=== PATIENT | female | born 1990 | race Caucasian/White ===

== ENCOUNTER 2020-12-11 03:27 | Emergency (ER) | payer OTHER, SELFPAY ==
[2020-12-11 03:59] VITALS: BP 155/83; PULSE 76; RESP 20; TEMP 37.1; O2SAT 99; BMI 40.3
[2020-12-11] MEDS: Lidocaine HCl Viscous 2 % 15 ML SOLUTION 10 ML MUCOUS MEM (04:17)
[2020-12-11] MEDS: Magnesium Hydrox/Alum Hydrox 30 ML ORAL.SUSP PO (04:17)
--- NOTE | 2020-12-11 04:35 | ED_ITS ---
HPI - General Adult General Chief complaint: Upper Respiratory Symptoms Stated complaint: Sore throat Time Seen by Provider: 12/11/20 04:06 Source: patient Mode of arrival: ambulatory History of Present Illness HPI narrative: A 30-year-old female with sore throat since yesterday without associated fevers, chills, cough and states that at approximately 2:00 a.m. this morning she began having nausea and vomiting and states that she was vomiting blood streaked. However, she states that this has resolved and she is now currently only spitting in complaining of a burning sensation at the back of the throat in addition to the sore throat that she had. Related Data Previous Rx's Medication Instructions Recorded sucralfate [Carafate] 10 ml PO BID #420 ml 12/11/20 Allergies Allergy/AdvReac Type Severity Reaction Status Date / Time sumatriptan [From IMITREX] Allergy Severe THROAT Unverified 05/04/20 17:06 SWELLING metoclopramide [From REGLAN] Allergy Intermediate HEART RACES Unverified 05/04/20 17:06 Review of Systems Review of Systems: Pertinent positives and negatives as stated in HPI and 10 point review of systems is otherwise negative. PMFSH Past Medical History Source: nursing notes reviewed Medical History Anxiety Depression Social History Social History Advance Directives: No Advance Directives Information Provided: No Physical Exam Vital Signs: Vital Signs: Last Vital Signs Temp 98.8 F 12/11/20 03:59 Pulse 76 12/11/20 03:59 Resp 20 12/11/20 03:59 BP 155/83 H 12/11/20 03:59 Pulse Ox 99 12/11/20 03:59 Body Mass Index 40.3 VITAL SIGNS: Reviewed. GENERAL: Well developed, well nourished, in no acute distress. HEAD: Normocephalic/atraumatic EYES: PERRLA, EOMI EARS: Ext canals without abnormality, TMs non-bulging and non-erythematous NOSE: Nares patent bilateral OROPHARYNX: no oral lesions noted, posterior pharynx clear but erythematous without noted tonsillar enlargement/erythema/exudates, no trismus, handling secretions well, no signs of dental infection. NECK: Supple, no adenopathy LUNGS: Normal breath sounds. No adventitious sounds or accessory muscle use. SpO2<99> CARDIOVASCULAR: Regular rate and rhythm without noted murmurs ABDOMEN: Soft, non-tender, non-distended with bowel sounds. Observed patient's vomitus/secretions an emesis bag and no evidence or demonstration of blood. NEUROLOGIC: Alert and oriented x 4. Course Course Course Narrative: 30-year-old female with history and clinical presentation suggestive of pharyngitis, acid reflux, possible COVID-19. Patient was provided with GI cocktail, Zofran. On review of all investigations patient is noted to be rapid strep negative, COVID-19 negative, and she endorses on re-evaluation that she has had some significant improvement in her esophageal burning after receiving the GI cocktail the still has some noted at the ?back of her throat?. Discussed with patient all of her results and the plan to treat her with liquid Carafate and saline gargles. Medical Decision Making Lab Data Labs: Lab Results 12/11/20 Range/Units 05:00 COVID-19 (DINESH) Negative (Negative) COVID-19 Clin Com See Note Discharge Plan Discharge Clinical Impression: Pharyngitis, Bile acid esophageal reflux Patient Disposition: Home, Self-Care Instructions: Pharyngitis (ED), Diet for Stomach Ulcers and Gastritis (ED), Gastroesophageal Reflux Disease (ED) Additional Instructions: Recommend saline gargles (per together table salt with warm water) and gargle for 5-10 minutes, a minimum of twice daily until symptom improvement. Please follow-up with the primary care provider in the next 2-3 days for re- evaluation. Return to the emergency department if you develop any acute worsening of your symptoms. Prescriptions: New sucralfate [Carafate] 100 mg/mL suspension 10 ml PO BID Qty: 420 RF: 0 Referrals: Patricia Esparza DO [Primary Care Provider] - 2 days
[2020-12-11 05:18] LABS: COVID-19 Test Negative (Negative)
== END 2020-12-11 06:12 | disposition home or self-care (01) ==
PROVIDERS: Emergency Provider Student in an Organized Health Care Education/Training Program; PCP Internal Medicine
DX: J02.9 Acute pharyngitis, unspecified (principal); K21.9 Gastro-esophageal reflux disease without esophagitis; Z20.822 Contact with and (suspected) exposure to COVID-19
CPT/HCPCS: 36415; 87071; 87147; 87635; 87880; 96360; 96361; 99283; 99284

== ENCOUNTER 2021-09-05 19:43 | Emergency (ER) | payer OTHER, SELFPAY ==
--- NOTE | 2021-09-05 | ECG_ITS ---
Test Reason : DIZZINESS Blood Pressure : / mmHG Vent. Rate : 069 BPM Atrial Rate : 069 BPM P-R Int : 150 ms QRS Dur : 100 ms QT Int : 422 ms P-R-T Axes : 020 031 024 degrees QTc Int : 452 ms Normal sinus rhythm Normal ECG When compared with ECG of 13-OCT-2019 09:40, No significant change was found Referred By: Generic ED Physician Electronically Signed By:Yves Lazar
[2021-09-05 20:44] VITALS: BP 138/78; PULSE 69; RESP 18; TEMP 35.9; O2SAT 99; BMI 42.0
[2021-09-05 23:58] VITALS: BP 125/81; PULSE 62; RESP 18; TEMP 36.7; O2SAT 99
--- NOTE | 2021-09-06 00:11 | ED.GENADULT ---
HPI - General Adult General Chief complaint: General Medical Stated complaint: shooting pain in face, dizziness Time Seen by Provider: 09/05/21 21:17 Source: patient Mode of arrival: ambulatory History of Present Illness HPI narrative: 30-year-old female with past medical history of anxiety presents with experiencing right-sided, sharp facial pain that started approximately 0600 and stated that it originated at the jaw shot upwards to the back of her right eye and her right ear. She denies any sore throat, cough, fevers, chills, blurry/double vision, pain with eye movement and states that from her forehead all the way down the right side of her face it feels ?weird?. She denies any photosensitivity, sensitivity to sound, nausea, dental pain, recent trauma, changes in hearing or problems with speech. She has had the [employer] COVID-19 vaccine. Related Data Previous Rx's Medication Instructions Recorded sucralfate 100 mg/mL oral 10 ml PO BID #420 ml 12/11/20 suspension (Carafate) Allergies Allergy/AdvReac Type Severity Reaction Status Date / Time sumatriptan [From IMITREX] Allergy Severe THROAT Verified 09/05/21 20:43 SWELLING metoclopramide [From REGLAN] Allergy Intermediate HEART RACES Verified 09/05/21 20:43 Review of Systems Review of Systems: Pertinent positives and negatives as stated in HPI 10 point review of systems is otherwise negative. PMFSH Past Medical History Source: nursing notes reviewed Medical History Anxiety Depression Social History Social History Advance Directives: No Patient : No Physical Exam Vital Signs: Vital Signs: Last Vital Signs Temp 98.0 F 09/05/21 23:58 Pulse 62 09/05/21 23:58 Resp 18 09/05/21 23:58 BP 125/81 09/05/21 23:58 Pulse Ox 99 09/05/21 23:58 BMI result Body Mass Index 42.0 VITAL SIGNS: Reviewed. GENERAL: Well developed, well nourished, in no acute distress. HEAD: Normocephalic/atraumatic EYES: PERRLA, EOMI intact without pain, no nystagmus, no periorbital edema, no conjunctival injection EARS: Ext canals without abnormality, TMs non-bulging and non-erythematous NOSE: Nares patent bilateral OROPHARYNX: no oral lesions noted, posterior pharynx clear and non-erythematous without noted tonsillar enlargement/erythema/exudates NECK: Supple, no adenopathy LUNGS: Normal breath sounds. No adventitious sounds or accessory muscle use. SpO2<99> CARDIOVASCULAR: Regular rate and rhythm without noted murmurs ABDOMEN: Soft, non-tender, non-distended with bowel sounds. MUSCULOSKELETAL: No tenderness, deformities, or effusions noted on gross inspection. EXTREMITIES: No cyanosis, clubbing or edema. SKIN: Inspection of the skin reveals no rashes NEUROLOGIC: Alert and oriented x 4. Strength and sensation to light touch were grossly intact x 4, no facial asymmetry, no erythema/induration Course Course Course Narrative: 30-year-old female with history and clinical presentation neuropathy, findings are not consistent with shingles, acute angle glaucoma, and low clinical suspicion for dental caries, no evidence to suggest AOM or pharyngitis. Will obtain basic labs as well as ESR although history and clinical present presentation less likely to be temporal arteritis. Review of all investigations without acute findings no evidence to suggest temporal arteritis. On re-evaluation patient is feeling much better after having received the Tylenol and Toradol. Discussed all results with the patient at bedside discussed the possibility that this may be TMJ or grinding of teeth. Patient discharged home in stable condition. Medical Decision Making Lab Data Result diagrams: 09/06/21 00:14 09/06/21 00:14 Labs: Lab Results 09/06/21 09/06/21 09/06/21 Range/Units 00:14 00:14 00:14 WBC 14.0 H (4.8-10.8) X10*3/uL RBC 4.36 (4.20-5.50) X10*6/uL Hgb 14.1 (12.0-16.0) g/dl Hct 41.5 (37.0-47.0) % MCV 95.2 (80.0-98.0) fL MCH 32.3 (27.0-33.0) pg MCHC 34.0 (31.0-35.0) g/dl RDW 12.8 (11.0-16.0) % Plt Count 338 (160-400) X10*3/uL MPV 10.0 (9.4-12.3) fL Immature Gran % (Auto) 0.4 (0.0-0.4) % Neut % (Auto) 48.1 (45-73) % Lymph % (Auto) 40.6 H (20-40) % Johnson % (Auto) 6.3 (2-11) % Eos % (Auto) 4.2 H (0-4) % Baso % (Auto) 0.4 (0-2) % Lymph # (Auto) 5.7 H (1.2-4.9) X10*3/uL Johnson # (Auto) 0.9 (0.1-1.2) X10*3/uL Eos # (Auto) 0.6 H (0.0-0.4) X10*3/uL Baso # (Auto) 0.1 (0.0-0.2) X10*3/uL Abs Immat Gran (auto) 0.06 H (0.00-0.03) X10*3/uL Absolute Neuts (auto) 6.7 (2.0-8.3) x10*3/uL Absolute Nucleated RBC 0.000 (0.0-0.012) X10*3/uL Nucleated RBC % (auto) 0.0 (0.0-0.2) /100WBC Smear Tech's Comments VERIFIED ESR 8 (0-20) MM/HR Sodium 140 (135-145) mmol/L Potassium 3.8 (3.3-5.1) mmol/L Chloride 107 (96-108) mmol/L Carbon Dioxide 23 (22-29) mmol/L Anion Gap 14 (12-20) BUN 12 (9-16) mg/dL Creatinine 0.75 (0.5-1.4) mg/dL Estim Creat Clear Calc 122.0 Estimated GFR > 60 Random Glucose 90 (60-115) mg/dL Calcium 9.4 (8.4-10.2) mg/dL Total Bilirubin 0.6 (0.0-1.0) mg/dL AST 22 (5-31) U/L ALT 20 (0-31) U/L Alkaline Phosphatase 104 (39-117) U/L Total Protein 7.4 (6.5-8.0) g/dL Albumin 4.2 (3.5-5.0) g/dL ECG Data Attestation: I personally reviewed and interpreted this ECG as follows: Prior ECG tracings: available for review (10/13/2019) Interpretation: Normal sinus rhythm, HR -69, no STEMI, MT/QRS/QTC are within normal limits. Discharge Plan Discharge Clinical Impression: Facial pain Patient Disposition: Home, Self-Care Instructions: Atypical Facial Pain (ED) Additional Instructions: Follow-up with your primary care provider for re-evaluation and further outpatient management in the next 1-2 days. Recommend [id number] Tylenol (1000 mg, orally, every 6 hours as needed for pain control. Do not exceed 4000 mg within 24 hours. ) And/or ibuprofen 400 mg, orally with milk or food, every 6 hours as needed for pain control. Return to the ER for worsening symptoms. Prescriptions: No Action sucralfate [Carafate] 100 mg/mL suspension 10 ml PO BID Qty: 420 RF: 0
[2021-09-06] MEDS: Acetaminophen 325 MG TABLET 975 MG PO (00:20)
[2021-09-06 00:21] LABS: Basophils Absolute Auto 0.1 X10*3/uL (0.0-0.2); Basophils Percent Auto 0.4 % (0-2); Eosinophils Absolute Auto 0.6 X10*3/uL (0.0-0.4); Eosinophils Percent Auto 4.2 % (0-4); Hematocrit 41.5 % (37.0-47.0); Hemoglobin 14.1 g/dl (12.0-16.0); Imm Gran Abs Auto 0.06 X10*3/uL (0.00-0.03); Imm Gran Pct Auto 0.4 % (0.0-0.4); Lymphocytes Absolute Auto 5.7 X10*3/uL (1.2-4.9); Lymphocytes Percent Auto 40.6 % (20-40); MANUAL DIFF FLAG SCAN; Mean Corpuscular Hemoglobin 32.3 pg (27.0-33.0); Mean Corpuscular Volume 95.2 fL (80.0-98.0); Monocytes Absolute Auto 0.9 X10*3/uL (0.1-1.2); Monocytes Percent Auto 6.3 % (2-11); Neutrophils Absolute Auto 6.7 x10*3/uL (2.0-8.3); Neutrophils Percent Auto 48.1 % (45-73); Platelet Count 338 X10*3/uL (160-400); Red Blood Count 4.36 X10*6/uL (4.20-5.50); Red Cell Distribution Width 12.8 % (11.0-16.0); SCAN SMEAR FLAG 1
[2021-09-06] MEDS: Ketorolac Tromethamine 30 MG/ML VIAL 15 MG IVPUSH (00:21)
[2021-09-06 00:49] LABS: Alanine Aminotransferase 20 U/L (0-31); Albumin Level 4.2 g/dL (3.5-5.0); Alkaline Phosphatase 104 U/L (39-117); Anion Gap 14 (12-20); Aspartate Amino Transferase 22 U/L (5-31); Bilirubin Total 0.6 mg/dL (0.0-1.0); Blood Urea Nitrogen 12 mg/dL (9-16); Calcium 9.4 mg/dL (8.4-10.2); Carbon Dioxide 23 mmol/L (22-29); Chloride 107 mmol/L (96-108); Estimated Glomerular Filt Rate > 60; Glucose Random 90 mg/dL (60-115); Potassium 3.8 mmol/L (3.3-5.1); Sodium 140 mmol/L (135-145); Total Protein 7.4 g/dL (6.5-8.0)
[2021-09-06 00:51] LABS: SLIDE REVIEW VERIFIED
[2021-09-06 01:02] LABS: Erythrocyte Sedimentation Rate 8 MM/HR (0-20)
== END 2021-09-06 02:25 | disposition home or self-care (01) ==
PROVIDERS: Emergency Provider Student in an Organized Health Care Education/Training Program
DX: R51.9 Headache, unspecified (principal); R42 Dizziness and giddiness; R07.89 Other chest pain; Z79.899 Other long term (current) drug therapy
CPT/HCPCS: 36415; 80053; 85025; 85652; 93005; 96374; 99284; J1885

== ENCOUNTER 2021-10-29 11:27 | Emergency (ER) | payer OTHER, SELFPAY ==
--- NOTE | 2021-10-29 | ECG_ITS ---
Test Reason : CP Blood Pressure : / mmHG Vent. Rate : 064 BPM Atrial Rate : 064 BPM P-R Int : 150 ms QRS Dur : 106 ms QT Int : 424 ms P-R-T Axes : 017 029 024 degrees QTc Int : 437 ms Normal sinus rhythm Normal EKG When compared with ECG of 05-SEP-2021 21:29, No significant change was found Referred By: Generic ED Physician Electronically Signed By:GURPREET GAMBOA
--- NOTE | ~2021-10-29 | CT_ITS ---
EXAMINATION: CT HEAD WITHOUT CONTRAST CLINICAL INFORMATION: Falling and difficulty communicating. COMPARISON: CT scan of the head 10/13/2019. TECHNIQUE: Contiguous axial imaging was performed from the skull base to vertex without intravenous administration of contrast. This CT examination was performed using dose optimization techniques as appropriate, variously including the following: *Automated exposure control *Adjustment of mA and/or kV according to patient size (this includes techniques or standardized protocols for targeted exams where dose is matched to indication/reason for exam; i.e. extremities or head) *Use of iterative reconstruction technique DLP: 645 mGy-cm FINDINGS: There is no acute intracranial hemorrhage or abnormal extra-axial collection. No intracranial mass effect or midline shift. Lateral and third ventricles are normal. No hydrocephalus. Ibarra-white matter differentiation is preserved and there is no evidence of acute territorial infarct. The calvarium and skull base are intact. Mastoid air cells and middle ear cavities are well aerated. No active paranasal sinus disease. CT/CT head/brain wo con IMPRESSION: Normal CT scan of the head.
[2021-10-29 11:37] VITALS: BP 136/80; PULSE 60; RESP 18; TEMP 36.5; O2SAT 98; BMI 40.2
--- NOTE | 2021-10-29 12:18 | ED.CHESTPAIN ---
HPI - Chest Pain General Chief Complaint: Chest Pain Stated Complaint: CHEST PAIN FROM [facility] Time Seen by Provider: 10/29/21 12:18 Source: patient Mode of arrival: ambulatory Limitations: no limitations History of Present Illness HPI narrative: chest pain started this morning. Patient with arm and leg pain that is chronic by history and chronicity. Patient also feels like she is falling and off balance and at times feels that she has a hard time communicating. Patient [place] [facility] [facility] [place] and was sent in. My reading of that EKG was normal complaint: chest pain Onset (ago): hour(s) Timing of current episode: episodic Pain radiation: none Severity: mild Quality: tightness Risk Factors Coronary artery disease risk factors: none Related Data Previous Rx's Medication Instructions Recorded sucralfate 100 mg/mL oral 10 ml PO BID #420 ml 12/11/20 suspension (Carafate) Allergies Allergy/AdvReac Type Severity Reaction Status Date / Time sumatriptan [From IMITREX] Allergy Severe THROAT Verified 09/05/21 20:43 SWELLING metoclopramide [From REGLAN] Allergy Intermediate HEART RACES Verified 09/05/21 20:43 Review of Systems Constitutional: Constitutional: Reports no additional constitutional complaints Eyes: Eyes: Reports no additional eye complaints ENT: Denies dizziness Cardiovascular: Cardiovascular: Reports no additional cardiovascular complaints Respiratory: Respiratory: Reports as per HPI Gastrointestinal: Gastrointestinal: Reports no additional gastrointestinal complaints Genitourinary: Genitourinary: Reports no additional female genitourinary complaints Musculoskeletal: Musculoskeletal: Reports no additional musculoskeletal complaints Integumentary/Breasts: Skin/Breast: Denies rash Neurologic: Reports system reviewed and no additional complaints, except as documented, Denies dizziness and Denies Sensory deficit (Neuro) Psychiatric: Psychiatric: Denies anxiety [facility] Past Medical History Medical History Anxiety Depression Social History Social History Advance Directives: No Advance Directives Information Provided: No Physical Exam Vital Signs: Vital Signs: Last Vital Signs Temp 97.7 F 10/29/21 11:37 Pulse 58 10/29/21 14:02 Resp 18 10/29/21 14:02 BP 146/94 H 10/29/21 14:02 Pulse Ox 99 03/14/22 14:02 Oxygen Flow Rate 2 10/29/21 11:37 BMI result Body Mass Index 40.2 Const: General: healthy appearing Nutritional Appearance: average body habitus Orientation/consciousness: oriented to person and patient oriented x3 Limitations: no limitations HENMT: Head: Yes normal to inspection Ears: external ears normal General nose exam: Normal external nose present Mouth: Normal oral and palatal mucosa present and oropharynx normal Throat: Yes posterior oropharynx normal Eyes: General: appearance normal, both eyes and all related structures Neck: Other: supple Neck: Yes normal visual inspection Chest: Chest palpation & inspection: normal inspection of the chest Resp: Auscultation: clear to auscultation bilaterally Cardio: Jugular venous distension: no JVD Rate: regular rate Rhythm: regular rhythm Heart sounds: S1 normal heart sound present and S2 normal heart sound present GI: Inspection: Yes normal to inspection Palpation (GI): Soft to palpation, nontender and No hepatosplenomegaly present Auscultation: normal bowel sounds : General: Yes no CVA tenderness Back/Spine/Pelvis: Back: no CVA tenderness Skin: General skin exam: no rashes or lesions noted Neuro: General: oriented to person and patient oriented x3 Cranial nerves: Yes CN's II-XII intact bilaterally Motor exam (neuro): 5/5 motor strength present throughout Sensory Exam: No Sensory deficit (Neuro) Extrem: General: Yes normal to inspection Psych: Other: Anxious affect Course Reevaluation(s) Reevaluation #1: Patient with NIH stroke scale of 0. she has no ataxia or past pointing. Time: 12:30 Reevaluation #2: Patient with a host of complaints, including headache, falling, arm and leg pain for weeks, and chest pain today. Work up is negative and normal EKG. I will have patient follow up with her doctor Time: 15:56 MDM - Chest Pain Lab Data Result diagrams: 10/29/21 12:51 10/29/21 12:51 Labs: Lab Results 10/29/21 10/29/21 10/29/21 Range/Units 12:51 12:51 12:51 WBC 12.9 H (4.8-10.8) X10*3/uL RBC 4.37 (4.20-5.50) X10*6/uL Hgb 13.8 (12.0-16.0) g/dl Hct 42.2 (37.0-47.0) % MCV 96.6 (80.0-98.0) fL MCH 31.6 (27.0-33.0) pg MCHC 32.7 (31.0-35.0) g/dl RDW 12.8 (11.0-16.0) % Plt Count 394 (160-400) X10*3/uL MPV 10.0 (9.4-12.3) fL Immature Gran % (Auto) 0.5 H (0.0-0.4) % Neut % (Auto) 57.0 (45-73) % Lymph % (Auto) 34.0 (20-40) % Billings % (Auto) 4.9 (2-11) % Eos % (Auto) 3.3 (0-4) % Baso % (Auto) 0.3 (0-2) % Lymph # (Auto) 4.4 (1.2-4.9) X10*3/uL Billings # (Auto) 0.6 (0.1-1.2) X10*3/uL Eos # (Auto) 0.4 (0.0-0.4) X10*3/uL Baso # (Auto) 0.0 (0.0-0.2) X10*3/uL Abs Immat Gran (auto) 0.06 H (0.00-0.03) X10*3/uL Absolute Neuts (auto) 7.4 (2.0-8.3) x10*3/uL Absolute Nucleated RBC 0.000 (0.0-0.012) X10*3/uL Nucleated RBC % (auto) 0.0 (0.0-0.2) /100WBC ESR (0-20) MM/HR Sodium 142 (135-145) mmol/L Potassium 4.2 (3.3-5.1) mmol/L Chloride 107 (96-108) mmol/L Carbon Dioxide 27 (22-29) mmol/L Anion Gap 12 (12-20) BUN 11 (9-16) mg/dL Creatinine 0.80 (0.5-1.4) mg/dL Estim Creat Clear Calc 110.4 Estimated GFR > 60 Random Glucose 85 (60-115) mg/dL Calcium 9.6 (8.4-10.2) mg/dL Troponin I High Sens < 3.5 (<3.5-17.0) ng/L 10/29/21 Range/Units 12:51 WBC (4.8-10.8) X10*3/uL RBC (4.20-5.50) X10*6/uL Hgb (12.0-16.0) g/dl Hct (37.0-47.0) % MCV (80.0-98.0) fL MCH (27.0-33.0) pg MCHC (31.0-35.0) g/dl RDW (11.0-16.0) % Plt Count (160-400) X10*3/uL MPV (9.4-12.3) fL Immature Gran % (Auto) (0.0-0.4) % Neut % (Auto) (45-73) % Lymph % (Auto) (20-40) % Billings % (Auto) (2-11) % Eos % (Auto) (0-4) % Baso % (Auto) (0-2) % Lymph # (Auto) (1.2-4.9) X10*3/uL Billings # (Auto) (0.1-1.2) X10*3/uL Eos # (Auto) (0.0-0.4) X10*3/uL Baso # (Auto) (0.0-0.2) X10*3/uL Abs Immat Gran (auto) (0.00-0.03) X10*3/uL Absolute Neuts (auto) (2.0-8.3) x10*3/uL Absolute Nucleated RBC (0.0-0.012) X10*3/uL Nucleated RBC % (auto) (0.0-0.2) /100WBC ESR 7 (0-20) MM/HR Sodium (135-145) mmol/L Potassium (3.3-5.1) mmol/L Chloride (96-108) mmol/L Carbon Dioxide (22-29) mmol/L Anion Gap (12-20) BUN (9-16) mg/dL Creatinine (0.5-1.4) mg/dL Estim Creat Clear Calc Estimated GFR Random Glucose (60-115) mg/dL Calcium (8.4-10.2) mg/dL Troponin I High Sens (<3.5-17.0) ng/L Imaging Data CT scan - head: Radiologist's impression: IMPRESSION: Normal CT scan of the head. Discharge Plan Discharge Clinical Impression: Atypical chest pain, Myalgia Patient Disposition: Home, Self-Care Instructions: Noncardiac Chest Pain (ED), Musculoskeletal Pain (ED) Prescriptions: No Action sucralfate [Carafate] 100 mg/mL suspension 10 ml PO BID Qty: 420 0RF Referrals: Physician,Unknown J [Primary Care Provider] - 10 days
[2021-10-29 12:55] LABS: MANUAL DIFF FLAG NO
[2021-10-29 13:02] LABS: Basophils Percent Auto 0.3 % (0-2); Eosinophils Absolute Auto 0.4 X10*3/uL (0.0-0.4); Eosinophils Percent Auto 3.3 % (0-4); Hematocrit 42.2 % (37.0-47.0); Hemoglobin 13.8 g/dl (12.0-16.0); Imm Gran Abs Auto 0.06 X10*3/uL (0.00-0.03); Imm Gran Pct Auto 0.5 % (0.0-0.4); Lymphocytes Absolute Auto 4.4 X10*3/uL (1.2-4.9); Mean Corpuscular HGB Conc 32.7 g/dl (31.0-35.0); Mean Corpuscular Hemoglobin 31.6 pg (27.0-33.0); Mean Corpuscular Volume 96.6 fL (80.0-98.0); Monocytes Absolute Auto 0.6 X10*3/uL (0.1-1.2); Monocytes Percent Auto 4.9 % (2-11); Neutrophils Absolute Auto 7.4 x10*3/uL (2.0-8.3); Platelet Count 394 X10*3/uL (160-400); Red Blood Count 4.37 X10*6/uL (4.20-5.50); Red Cell Distribution Width 12.8 % (11.0-16.0); White Blood Count 12.9 X10*3/uL (4.8-10.8)
[2021-10-29 13:13] LABS: Anion Gap 12 (12-20); Blood Urea Nitrogen 11 mg/dL (9-16); Calcium 9.6 mg/dL (8.4-10.2); Carbon Dioxide 27 mmol/L (22-29); Chloride 107 mmol/L (96-108); Creatinine Clr Calc Pharmacy 110.4; Estimated Glomerular Filt Rate > 60; Glucose Random 85 mg/dL (60-115); Potassium 4.2 mmol/L (3.3-5.1); Sodium 142 mmol/L (135-145)
[2021-10-29 13:21] LABS: Troponin-I High Sensitivity < 3.5 ng/L (<3.5-17.0)
[2021-10-29 13:44] LABS: Erythrocyte Sedimentation Rate 7 MM/HR (0-20)
[2021-10-29 14:02] VITALS: BP 146/94; PULSE 58; RESP 18; O2SAT 99
== END 2021-10-29 16:10 | disposition home or self-care (01) ==
PROVIDERS: Emergency Provider Emergency Medicine
DX: R07.89 Other chest pain (principal); M79.10 Myalgia, unspecified site
CPT/HCPCS: 36415; 70450; 80048; 84484; 85025; 85652; 93005; 99284; 99285

== ENCOUNTER 2022-01-11 10:09 | Emergency (ER) | payer OTHER, SELFPAY ==
[2022-01-11] VITALS (7 sets, daily range): BP systolic 116–160; BP diastolic 72–93; PULSE 60–97; RESP 15–20; TEMP 36.2–37.1; O2SAT 95–99; BMI 40.2
--- NOTE | ~2022-01-11 | XR_ITS ---
EXAMINATION: XR CHEST CLINICAL INFORMATION: Chest pain COMPARISON: Previous chest CT from 2016 and chest x-ray from 2016 TECHNIQUE: Frontal view of the chest was obtained. FINDINGS: No significant abnormality is noted involving the heart, lungs, mediastinum, bony thorax or soft tissues. XR/XR chest 1V IMPRESSION: Unremarkable examination.
--- NOTE | ~2022-01-11 | MR_ITS ---
EXAMINATION: MR BRAIN WITHOUT CONTRAST MR CERVICAL SPINE WITHOUT CONTRAST CLINICAL INFORMATION: Headache. Dizziness. Right face and right arm numbness. COMPARISON: CT head and cervical spine from 07/26/2015. TECHNIQUE: MRI of the brain and cervical spine was obtained using routine sequences without contrast. FINDINGS: Brain: No focal restricted diffusion is demonstrated to suggest acute or subacute cerebral ischemia. No evidence of acute or chronic hemorrhagic products on heme-sensitive imaging. Normal parenchymal signal characteristics. The ventricles are normal in morphology and size. No abnormal mass effect. No midline shift. Expansion of the sella turcica with flattening of the pituitary gland. No abnormalities of the posterior fossa with normal appearance of the brainstem and cerebellum. Normal arterial and venous vascular flow voids are present. Normal, homogeneous marrow signal. Mild mucosal thickening of the paranasal sinuses. Mild leftward nasal septal deviation. No signal abnormalities within the mastoids. Cervical Spine: Normal anatomic alignment. 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 Otherwise, normal homogeneous marrow signal throughout. No suspicious marrow edema. The vertebral body heights are maintained. Mild degenerative disc disease at C4-C5 and C5-C6 with partial loss of disc height and desiccation. The remaining intervertebral discs are of normal height and signal. The spinal cord is normal in appearance. Moderate enlargement of the bilateral palatine tonsils without demonstrated focal lesion/collection. Nonspecific mildly prominent upper cervical chain lymph nodes, measuring up to 1.7 cm in right level IIa and 1.6 cm in left level IIb. Otherwise, limited evaluation of the soft tissues of the neck without demonstrated abnormalities. The flow voids of the major cervical vessels are maintained. Normal appearance of the cervicomedullary junction. SPINAL LEVELS: C2-C3: Normal annular contour. There is no uncovertebral joint arthropathy. There is no facet joint arthropathy. There is no neural foraminal stenosis. There is no spinal canal stenosis. C3-C4: Normal annular contour. There is no uncovertebral joint arthropathy. There is no facet joint arthropathy. There is no neural foraminal stenosis. There is no spinal canal stenosis. C4-C5: Minimal disc-osteophyte complex. There is no uncovertebral joint arthropathy. There is no facet joint arthropathy. There is no neural foraminal stenosis. There is no spinal canal stenosis. C5-C6: Mild disc-osteophyte complex. There is mild left and no right uncovertebral joint arthropathy. There is mild bilateral facet joint arthropathy. There is no neural foraminal stenosis. There is no spinal canal stenosis. C6-C7: Normal annular contour. There is mild bilateral uncovertebral joint arthropathy. There is mild bilateral facet joint arthropathy. There is no neural foraminal stenosis. There is no spinal canal stenosis. C7-T1: Normal annular contour. There is no uncovertebral joint arthropathy. There is no facet joint arthropathy. There is no neural foraminal stenosis. There is no spinal canal stenosis. MR/MR cervical spine wo con IMPRESSION: 1. No acute intracranial abnormalities. No additional intracranial MRI abnormalities to explain the patient's symptoms. 2. 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 No spinal canal stenosis or nerve root compression. No demonstrated spinal cord signal abnormalities. 3. Moderate enlargement of the bilateral palatine tonsils without demonstrated focal lesion/collection. Nonspecific mildly enlarged upper cervical chain lymph nodes, likely reactive in nature.
--- NOTE | 2022-01-11 10:28 | ECG_ITS ---
Test Reason : cp Blood Pressure : / mmHG Vent. Rate : 082 BPM Atrial Rate : 082 BPM P-R Int : 134 ms QRS Dur : 102 ms QT Int : 390 ms P-R-T Axes : 034 028 034 degrees QTc Int : 455 ms Normal sinus rhythm Normal ECG When compared with ECG of 29-OCT-2021 11:28, No significant change was found Referred By: Generic ED Physician Electronically Signed By:Yves Lazar
[2022-01-11 10:45] LABS: Basophils Absolute Auto 0.1 X10*3/uL (0.0-0.2); Basophils Percent Auto 0.3 % (0-2); Eosinophils Absolute Auto 0.5 X10*3/uL (0.0-0.4); Hematocrit 41.3 % (37.0-47.0); Hemoglobin 14.2 g/dl (12.0-16.0); Imm Gran Abs Auto 0.08 X10*3/uL (0.00-0.03); Imm Gran Pct Auto 0.5 % (0.0-0.4); Lymphocytes Absolute Auto 4.9 X10*3/uL (1.2-4.9); Lymphocytes Percent Auto 31.1 % (20-40); MANUAL DIFF FLAG SCAN; Mean Corpuscular HGB Conc 34.4 g/dl (31.0-35.0); Mean Corpuscular Hemoglobin 32.1 pg (27.0-33.0); Mean Corpuscular Volume 93.4 fL (80.0-98.0); Mean Platelet Volume 10.5 fL (9.4-12.3); Monocytes Absolute Auto 0.8 X10*3/uL (0.1-1.2); Monocytes Percent Auto 5.1 % (2-11); Neutrophils Absolute Auto 9.4 x10*3/uL (2.0-8.3); Platelet Count 366 X10*3/uL (160-400); Red Blood Count 4.42 X10*6/uL (4.20-5.50); Red Cell Distribution Width 12.7 % (11.0-16.0); SCAN SMEAR FLAG 1; White Blood Count 15.7 X10*3/uL (4.8-10.8)
[2022-01-11 11:01] LABS: Anion Gap 11 (12-20); Blood Urea Nitrogen 9 mg/dL (9-16); Calcium 9.6 mg/dL (8.4-10.2); Carbon Dioxide 24 mmol/L (22-29); Chloride 107 mmol/L (96-108); Creatinine Clr Calc Pharmacy 117.8; Estimated Glomerular Filt Rate > 60; Glucose Random 93 mg/dL (60-115); Potassium 4.1 mmol/L (3.3-5.1); Sodium 138 mmol/L (135-145)
[2022-01-11 11:04] LABS: SLIDE REVIEW VERIFIED; Troponin-I High Sensitivity < 3.5 ng/L (<3.5-17.0)
[2022-01-11 11:52] LABS: Appearance Urine HAZY; Color Urine YELLOW; Glucose Urine UA NEG (NEG); Leukocyte Esterase Urine NEG (NEG); Nitrite Urine NEG (NEG); UACC Culture Trigger NO; Urine Blood TRACE (NEG); Urine Ketones 5 MG/DL (NEG); Urine Protein NEG (NEG-TRACE)
[2022-01-11 11:56] LABS: UPreg QC Valid YES; Urine Pregnancy NEGATIVE (NEGATIVE)
[2022-01-11 12:03] LABS: WBC Urine 0-2 /HPF (0-4)
[2022-01-11 12:04] LABS: Bacteria Urine TRACE /LPF; Squamous Epithelial Cell Urine 1+ /LPF
[2022-01-11 12:05] LABS: Amorphous Sediment Urine TRACE /LPF
--- NOTE | 2022-01-11 17:27 | ED.GENADULT ---
HPI - General Adult General Chief complaint: General Medical Stated complaint: dizziness/back pain Time Seen by Provider: 01/11/22 17:27 Source: patient Mode of arrival: ambulatory Limitations: no limitations History of Present Illness HPI narrative: 31-year-old female who presents emergency department for evaluation of headache, dizziness, right-sided numbness. The patient states she has been experiencing dizziness for approximately 1 month. She describes the dizziness as a room spinning sensation she feels like her body is moving. The dizziness is worse with position change in with lying down flat especially at night. She states that the symptoms began gradually 1 month prior but have gotten progressively worse. She also has the sensation that her eyes were moving when she gets dizzy. She does have a history of migraine headaches but she states that she has had a headache which is been constant for approximately 1 month. She points to the frontal area of her head and the top her head when asked to localize the pain. The pain is a throbbing pain she feels as if someone is hit her in the head. The pain is 8/10 at its worst. She states she does get some relief with Excedrin migraine. The patient states she has been experiencing intermittent right-sided facial numbness since August of 2021. She was seen here in the emergency department and had a negative CT scan of the brain at that time. She states that she has been experiencing numbness on the right side of her body since 2018 and she currently feels like her right arm and right side of her body is numb. She also is experiencing right arm weakness which she states has gotten worse. She has seen her PCP he has been referred to a neurologist but that appointment is not until next month. She states that last night her headache became worse and she developed pain that went from her head down to her lower back. She states that this is a new sensation for her. She denies weakness of her lower extremities, loss of bowel or bladder control. Related Data Previous Rx's Medication Instructions Recorded sucralfate 100 mg/mL oral 10 ml PO BID #420 ml 12/11/20 suspension (Carafate) hydrochlorothiazide 25 mg tablet 25 mg PO DAILY 30 Days #30 tab 01/11/22 Allergies Allergy/AdvReac Type Severity Reaction Status Date / Time sumatriptan [From IMITREX] Allergy Severe THROAT Verified 09/05/21 20:43 SWELLING metoclopramide [From REGLAN] Allergy Intermediate HEART RACES Verified 09/05/21 20:43 Review of Systems Review of Systems: Yes all other systems are reviewed and are negative [facility] Past Medical History [facility] Narrative: Past medical history: GERD, anxiety, migraines. Past surgical history: Right wrist surgery after fracture. Social history: She smokes 5 cigarettes per day times 16 years. She occasionally drinks alcohol, she denies drug use. Medical History Anxiety Depression Social History Social History Advance Directives: No Advance Directives Information Provided: No Physical Exam ED Vital Signs: Vital Signs - 24 hr 01/11/22 10:24 01/11/22 18:24 01/11/22 20:11 Temperature 97.1 F 98.2 F 98.3 F Pulse Rate 81 74 60 Respiratory Rate 20 16 15 Blood Pressure 136/84 121/76 119/72 Pulse Oximetry 95 99 01/11/22 20:23 01/11/22 20:33 01/11/22 22:50 Temperature 98.0 F Pulse Rate 97 63 72 Respiratory Rate 20 18 18 Blood Pressure 160/87 H 123/76 159/93 H Pulse Oximetry 95 98 BMI result Body Mass Index 40.2 Const General: cooperative and no acute distress Orientation/consciousness: oriented to person and oriented to place Limitations: no limitations [facility] Head: Yes normal to inspection, Yes normocephalic and Yes atraumatic Ears: external ears normal General nose exam: Normal external nose present Face and sinus: Yes normal facial exam Mouth: Normal oral and palatal mucosa present Throat: Yes posterior oropharynx normal Eyes Visual Javier: normal visual javier by confrontation Alignment and Position: alignment normal Periorbital: periorbital findings normal Eyelids: Yes eyelids normal Conjunctivae: conjunctivae normal Sclerae: sclerae normal Corneas: corneas normal Pupils: Equal, round and reactive pupils present EOM: EOMs intact bilaterally and Nystagmus present (Lateral) Neck Neck: Yes normal visual inspection, Yes no lymphadenopathy, Yes trachea midline and Yes supple Chest Chest palpation & inspection: normal inspection of the chest and normal palpation of entire chest wall Resp Effort & Inspection: normal respiratory effort and able to speak in complete sentences Auscultation: clear to auscultation bilaterally Cardio Rate: regular rate Rhythm: regular rhythm Heart sounds: S1 normal heart sound present, S2 normal heart sound present and no murmurs GI Inspection: Yes normal to inspection Palpation (GI): Soft to palpation, nontender and no guarding Auscultation: normal bowel sounds General: Yes no CVA tenderness Back/Spine/Pelvis Back: no CVA tenderness Skin General skin exam: no rashes or lesions noted Neuro General: oriented to person and oriented to place Cranial nerves: Yes CN's II-XII intact bilaterally, Yes Equal, round and reactive pupils present and Yes Nystagmus present (Lateral) Cognition (Neuro): normal cognition Motor exam (neuro): 5/5 motor strength present throughout Coordination: [id number] test normal and [id number] test normal Extrem General: Yes normal to inspection Psych Appearance: grossly normal Speech and movement: Normal speech and movement present Affect: normal affect Attitude: cooperative Thought process: Normal thought process present Thought content: Normal thought content present Course Course Course Narrative: 31-year-old female who presents emergency department for evaluation of multiple complaints including room spinning/body moving dizziness which is worse with position change x1 month, headache x1 week, intermittent right sided facial numbness and right sided body numbness. Patient does have a history migraine headaches. Patient's vital signs were unremarkable. Examination did reveal lateral nystagmus, her neurologic exam was otherwise unremarkable. Differential includes was not limited to migraine headache, positional vertigo, cerebellar stroke/mass, multiple sclerosis. Patient had a CBC and CMP which revealed an elevated white blood cell count which is chronic and the patient is aware of this. BMP which was normal. High sensitivity troponin I which was below detectable limits. Chest x-ray was normal. EKG was unremarkable. Given the patient's symptoms in the differential, I did order an MRI of the brain and cervical spine. Patient's headache was treated with Tylenol 975 mg orally and aspirin 324 mg orally. 2332: The patient's MRI of the brain did not reveal any cerebellar lesions, MRI of the neck also did not reveal a clear etiology for the patient's symptoms. I did discuss this with the patient. Patient does have signs and symptoms of positional vertigo and I will treat her with hydrochlorothiazide 25 mg once a day for 1 month. I did discuss this treatment with her. The patient was given printed and verbal instructions discharged home. Medical Decision Making Lab Data Lab results reviewed: Yes I reviewed the patient's lab results. Result diagrams: 01/11/22 10:35 01/11/22 10:35 Labs: Lab Results 01/11/22 01/11/22 01/11/22 Range/Units 10:35 10:35 10:35 WBC 15.7 H (4.8-10.8) X10*3/uL RBC 4.42 (4.20-5.50) X10*6/uL Hgb 14.2 (12.0-16.0) g/dl Hct 41.3 (37.0-47.0) % MCV 93.4 (80.0-98.0) fL MCH 32.1 (27.0-33.0) pg MCHC 34.4 (31.0-35.0) g/dl RDW 12.7 (11.0-16.0) % Plt Count 366 (160-400) X10*3/uL MPV 10.5 (9.4-12.3) fL Immature Gran % (Auto) 0.5 H (0.0-0.4) % Neut % (Auto) 60.0 (45-73) % Lymph % (Auto) 31.1 (20-40) % [place] % (Auto) 5.1 (2-11) % Eos % (Auto) 3.0 (0-4) % Baso % (Auto) 0.3 (0-2) % Lymph # (Auto) 4.9 (1.2-4.9) X10*3/uL [place] # (Auto) 0.8 (0.1-1.2) X10*3/uL Eos # (Auto) 0.5 H (0.0-0.4) X10*3/uL Baso # (Auto) 0.1 (0.0-0.2) X10*3/uL Abs Immat Gran (auto) 0.08 H (0.00-0.03) X10*3/uL Absolute Neuts (auto) 9.4 H (2.0-8.3) x10*3/uL Absolute Nucleated RBC 0.000 (0.0-0.012) X10*3/uL Nucleated RBC % (auto) 0.0 (0.0-0.2) /100WBC Smear Tech's Comments VERIFIED Sodium 138 (135-145) mmol/L Potassium 4.1 (3.3-5.1) mmol/L Chloride 107 (96-108) mmol/L Carbon Dioxide 24 (22-29) mmol/L Anion Gap 11 L (12-20) BUN 9 (9-16) mg/dL Creatinine 0.75 (0.5-1.4) mg/dL Estim Creat Clear Calc 117.8 Estimated GFR > 60 Random Glucose 93 (60-115) mg/dL Calcium 9.6 (8.4-10.2) mg/dL Troponin I High Sens < 3.5 (<3.5-17.0) ng/L Urine Color Urine Appearance Urine pH (5.0-8.0) Ur Specific [place] (1.005-1.025) Urine Protein (NEG-TRACE) MG/DL Urine Glucose (UA) (NEG) MG/DL Urine Ketones (NEG) MG/DL Urine Blood (NEG) Urine Nitrite (NEG) Ur Leukocyte Esterase (NEG) Urine RBC (0) /HPF Urine WBC (0-4) /HPF Ur Squamous Epith Cells /LPF Amorphous Sediment /LPF Urine Bacteria /LPF Urine Test (NEGATIVE) 01/11/22 01/11/22 Range/Units 11:42 11:42 WBC (4.8-10.8) X10*3/uL RBC (4.20-5.50) X10*6/uL Hgb (12.0-16.0) g/dl Hct (37.0-47.0) % MCV (80.0-98.0) fL MCH (27.0-33.0) pg MCHC (31.0-35.0) g/dl RDW (11.0-16.0) % Plt Count (160-400) X10*3/uL MPV (9.4-12.3) fL Immature Gran % (Auto) (0.0-0.4) % Neut % (Auto) (45-73) % Lymph % (Auto) (20-40) % [place] % (Auto) (2-11) % Eos % (Auto) (0-4) % Baso % (Auto) (0-2) % Lymph # (Auto) (1.2-4.9) X10*3/uL [place] # (Auto) (0.1-1.2) X10*3/uL Eos # (Auto) (0.0-0.4) X10*3/uL Baso # (Auto) (0.0-0.2) X10*3/uL Abs Immat Gran (auto) (0.00-0.03) X10*3/uL Absolute Neuts (auto) (2.0-8.3) x10*3/uL Absolute Nucleated RBC (0.0-0.012) X10*3/uL Nucleated RBC % (auto) (0.0-0.2) /100WBC Smear Tech's Comments Sodium (135-145) mmol/L Potassium (3.3-5.1) mmol/L Chloride (96-108) mmol/L Carbon Dioxide (22-29) mmol/L Anion Gap (12-20) BUN (9-16) mg/dL Creatinine (0.5-1.4) mg/dL Estim Creat Clear Calc Estimated GFR Random Glucose (60-115) mg/dL Calcium (8.4-10.2) mg/dL Troponin I High Sens (<3.5-17.0) ng/L Urine Color YELLOW Urine Appearance HAZY Urine pH 6.0 (5.0-8.0) Ur Specific [place] 1.020 (1.005-1.025) Urine Protein NEG (NEG-TRACE) MG/DL Urine Glucose (UA) NEG (NEG) MG/DL Urine Ketones 5 (NEG) MG/DL Urine Blood TRACE (NEG) Urine Nitrite NEG (NEG) Ur Leukocyte Esterase NEG (NEG) Urine RBC 1-4 (0) /HPF Urine WBC 0-2 (0-4) /HPF Ur Squamous Epith Cells 1+ /LPF Amorphous Sediment TRACE /LPF Urine Bacteria TRACE /LPF Urine Test NEGATIVE (NEGATIVE) ECG Data Attestation: I personally reviewed and interpreted this ECG as follows: Interpretation: 1024: Normal sinus rhythm with a rate of 82, normal DE interval, QRS duration and QTC interval, Q-wave lead 3, inverted T-wave lead 3, no ST segment elevation, no ST segment depression, no PACs, no PVCs, no other T-wave abnormalities. Compared to EKG dated 10/29/2021, Q-wave in inverted T-wave in lead 3 were present, no other significant change was seen by by me. Discharge Plan Discharge Clinical Impression: Paresthesia and pain of right extremity Benign paroxysmal positional vertigo Qualifiers: Laterality: unspecified laterality Qualified Code(s): H81.10 - Benign paroxysmal vertigo, unspecified ear Patient Disposition: Home, Self-Care Instructions: Benign Paroxysmal Positional Vertigo (ED) Additional Instructions: Your laboratory evaluation was unremarkable. The MRI of your brain did not reveal a clear cause for the dizziness. The MRI of your neck did not reveal a clear cause for your right arm numbness and pain. Your dizziness is consistent with positional vertigo (dizziness that occurs with position change). Positional vertigo is caused by the balance mechanism in the bony part of the ear (inner ear) Take hydrochlorothiazide 25 mg pills, 1 pill once a day for 1 month in this should improve your vertigo. Continue taking your other medications as prescribed. Make sure you keep your follow-up appointment with the neurologist. Follow-up with your doctor in 2 days. Please return to the emergency department if your symptoms get worse or if you develop any symptoms that are concerning to you. Prescriptions: New hydrochlorothiazide 25 mg tablet 25 mg PO DAILY 30 Days Qty: 30 0RF No Action sucralfate [Carafate] 100 mg/mL suspension 10 ml PO BID Qty: 420 0RF
[2022-01-11] MEDS: Acetaminophen 325 MG TABLET 975 MG PO (18:22)
[2022-01-11] MEDS: Aspirin 81 MG TAB.CHEW 324 MG PO (18:22)
[2022-01-11] MEDS: LORazepam 1 MG TABLET 2 MG PO (22:51)
== END 2022-01-11 23:53 | disposition home or self-care (01) ==
PROVIDERS: Emergency Provider Emergency Medicine Emergency Medical Services; PCP Internal Medicine
DX: H81.10 Benign paroxysmal vertigo, unspecified ear (principal); R20.2 Paresthesia of skin; R51.9 Headache, unspecified; R53.1 Weakness; F17.200 Nicotine dependence, unspecified, uncomplicated
CPT/HCPCS: 36415; 70551; 71045; 72141; 80048; 81001; 81025; 84484; 85025; 93005; 99284; 99285

== ENCOUNTER 2022-03-20 05:51 | Emergency (ER) | payer OTHER, SELFPAY ==
[2022-03-20 05:55] VITALS: BP 150/77; PULSE 60; RESP 16; TEMP 37.1; O2SAT 96; BMI 36.6
[2022-03-20 07:21] VITALS: BP 129/57; PULSE 58; RESP 14; TEMP 36.7; O2SAT 99
--- NOTE | 2022-03-20 08:18 | ED_ITS ---
HPI - Animal Bite General Chief Complaint: Wound/Laceration Stated Complaint: Cat Bite Time Seen by Provider: 03/20/22 08:01 Source: patient Mode of arrival: ambulatory Limitations: no limitations History of Present Illness HPI narrative: 31-year-old female presents to the ER for evaluation of cat bites and scratches to the top of her left foot that occurred almost 24 hours ago. She states she is fostering a CT that was having a fight with her established CT and she put her foot in to try to break them up when the foster cap bid her foot. She immediately cleaned the area with peroxide and soap and water. She had pain to the area and progressive swelling to the top of her left foot. She denies any fever or chills. Noted purulence drainage. She reports this morning she woke up with some numbness to her toes and ongoing pain. The pain is making it hard for her to walk. She is up-to-date on her tetanus shot. The CT is not up-to-date on all of his shots however he has been in her care for couple of months and she has prior bites from him. MD complaint: animal bite Onset (ago): day(s) (1) Animal: cat Description of animal: household pet Mechanism: bite and scratch Location - Extremities: left: foot Pain description: sharp, burning and constant Severity scale (1-10): 7 Context: animals fighting Associated symptoms: numbness Treatments prior to arrival: irrigation and antibiotic ointment Related Data Patient tetanus UTD: Yes Previous Rx's Medication Instructions Recorded sucralfate 100 mg/mL oral 10 ml PO BID #420 mL 12/11/20 suspension (Carafate) hydrochlorothiazide 25 mg tablet 25 mg PO DAILY 30 days #30 tabs 01/11/22 amoxicillin 875 mg-potassium 1 tab PO Q12H #28 tabs 03/20/22 clavulanate 125 mg tablet Allergies Allergy/AdvReac Type Severity Reaction Status Date / Time sumatriptan [From IMITREX] Allergy Severe THROAT Verified 09/05/21 20:43 SWELLING metoclopramide [From REGLAN] Allergy Intermediate HEART RACES Verified 09/05/21 20:43 Review of Systems Review of Systems: Constitutional: No Fever, No Chills Cardiovascular: No Chest Pain, No SOB Respiratory: No Cough, No Sputum Gastrointestinal: No Nausea, No Vomiting, No Diarrhea, No abdominal Pain Musculoskeletal: +joint pain, + Myalgias Skin: + Skin Lesions, No rash Neuro: No Weakness, + Numbness, No Dizziness, No Headache Psych: + Anxiety/Panic, No Depression Heme/Lymph: No Bruising, No Lymphadenopathy PMFSH Past Medical History Medical History Anxiety Depression Social History Social History Advance Directives: No Physical Exam ED Vital Signs: Vital Signs - 24 hr 03/20/22 05:55 03/20/22 07:21 Temperature 98.8 F 98.0 F Pulse Rate 60 58 Respiratory Rate 16 14 Blood Pressure 150/77 H 129/57 L Pulse Oximetry 96 99 Oxygen Delivery Method Room Air Room Air BMI result Body Mass Index 36.6 Appearance: Alert. Oriented X3. No acute distress. HEENT: normal inspection CVS: Normal heart rate and rhythm. Pulses normal. Respiratory: No respiratory distress. Skin: Skin warm and dry. Normal skin color. Normal skin turgor. No rashes. Extremities: Top of the left foot with superficial scratches and 2 puncture wounds with surrounding erythema and warmth extending to the toes and the distal ankle. Normal range of motion of the ankle, normal range of motion of all toes. Neuro: Oriented X 3. No motor deficit. No subjective numbness to the base of the great toe, 2nd toe and 3rd toe on the left foot. Normal range of motion. Course Course Course Narrative: 31-year-old female presents to the ER for evaluation of cat bites and scratches to the top of her left foot that occurred yesterday. Exam is consistent with cellulitis. No purulence drainage, no palpable abscess. She is not septic. Will start oral Augmentin now and have her closely follow with her primary care doctor. We discussed warning signs and symptoms that prompt urgent re- evaluation. She expressed understanding and is stable for discharge home. Discharge Plan Discharge Clinical Impression: Cat bite of foot Patient Disposition: Home, Self-Care Instructions: Animal Bite (ED) Additional Instructions: Take the prescribed antibiotics as directed. Complete the entire course. Elevate her foot when possible. Use warm compresses to the area to help increase blood flow and help fight infection. If after 48 full hours of antibiotics he noticed things are getting worse call your doctor or come back to the emergency room for further evaluation. Prescriptions: New amoxicillin-pot clavulanate 875-125 mg tablet 1 tab PO Q12H Qty: 28 0RF No Action sucralfate [Carafate] 100 mg/mL suspension 10 ml PO BID Qty: 420 0RF hydrochlorothiazide 25 mg tablet 25 mg PO DAILY 30 Days Qty: 30 0RF Interventions: ED Discharge Assessment Last Done: 03/20/22 08:35 Discharge Date/Time: 03/20/22 08:35
== END 2022-03-20 08:35 | disposition home or self-care (01) ==
PROVIDERS: Emergency Provider Emergency Medicine Emergency Medical Services; PCP Internal Medicine
DX: S90.872A Other superficial bite of left foot, initial encounter (principal); W55.01XA Bitten by cat, initial encounter; Y93.9 Activity, unspecified; Y92.9 Unspecified place or not applicable; Y99.9 Unspecified external cause status; Z79.899 Other long term (current) drug therapy
CPT/HCPCS: 99283

== ENCOUNTER 2022-03-21 22:23 | Emergency (ER) | payer OTHER, SELFPAY ==
--- NOTE | ~2022-03-21 | XR_ITS ---
EXAMINATION: XR FOOT, LEFT CLINICAL INFORMATION: Cat bite COMPARISON: None TECHNIQUE: AP, lateral, and oblique views of the left foot. FINDINGS: No fracture. Alignment is anatomic. Joint spaces are maintained. Soft tissue swelling dorsal to the tarsals. No obvious soft tissue gas XR/XR foot LT min 3V IMPRESSION: No acute osseous abnormalities. No foreign bodies. Soft tissue swelling dorsal to the metatarsals.
[2022-03-21 23:56] VITALS: BP 124/55; PULSE 73; RESP 16; TEMP 37.3; O2SAT 97; BMI 38.2
[2022-03-22 00:32] LABS: Basophils Absolute Auto 0.1 X10*3/uL (0.0-0.2); Basophils Percent Auto 0.4 % (0-2); Eosinophils Absolute Auto 0.5 X10*3/uL (0.0-0.4); Hematocrit 37.4 % (37.0-47.0); Hemoglobin 12.6 g/dl (12.0-16.0); Imm Gran Abs Auto 0.11 X10*3/uL (0.00-0.03); Imm Gran Pct Auto 0.7 % (0.0-0.4); MANUAL DIFF FLAG SCAN; Mean Corpuscular HGB Conc 33.7 g/dl (31.0-35.0); Mean Corpuscular Hemoglobin 31.7 pg (27.0-33.0); Mean Corpuscular Volume 94.2 fL (80.0-98.0); Monocytes Absolute Auto 0.8 X10*3/uL (0.1-1.2); Monocytes Percent Auto 5.1 % (2-11); Neutrophils Absolute Auto 9.7 x10*3/uL (2.0-8.3); Neutrophils Percent Auto 59.8 % (45-73); Platelet Count 354 X10*3/uL (160-400); Red Blood Count 3.97 X10*6/uL (4.20-5.50); Red Cell Distribution Width 13.7 % (11.0-16.0); SCAN SMEAR FLAG 1; White Blood Count 16.2 X10*3/uL (4.8-10.8)
[2022-03-22 00:44] LABS: Lactic Acid 0.7 mmol/L (0.5-2.0)
[2022-03-22 00:47] LABS: Anion Gap 12 (12-20); Blood Urea Nitrogen 12 mg/dL (9-16); Carbon Dioxide 21 mmol/L (22-29); Chloride 111 mmol/L (96-108); Creatinine Clr Calc Pharmacy 117.6; Estimated Glomerular Filt Rate > 60; Glucose Random 86 mg/dL (60-115); Potassium 4.3 mmol/L (3.3-5.1); Sodium 140 mmol/L (135-145)
[2022-03-22 00:50] LABS: SLIDE REVIEW VERIFIED
[2022-03-22 02:44] VITALS: BP 111/45; PULSE 76; RESP 16; TEMP 36.6; O2SAT 97
--- NOTE | 2022-03-22 03:02 | ED.ANIMALBIT ---
HPI - Animal Bite General Chief Complaint: Animal Bite Stated Complaint: cat bite gotten worse Time Seen by Provider: 03/22/22 03:00 History of Present Illness HPI narrative: Patient is a 31-year-old female status post cat bite to the dorsum of the left foot. Patient was seen in the emergency department 2 days prior. Started on Augmentin. Took a day and half with the medicine. Patient claims of foot pain is still existing. Presents to ED for further evaluation. Patient denies any systemic fever chills. No nausea no vomiting. The pain is localized to the foot. Patient denies any coughing congestion upper respiratory symptoms. Related Data Previous Rx's Medication Instructions Recorded sucralfate 100 mg/mL oral 10 ml PO BID #420 mL 12/11/20 suspension (Carafate) hydrochlorothiazide 25 mg tablet 25 mg PO DAILY 30 days #30 tabs 01/11/22 amoxicillin 875 mg-potassium 1 tab PO Q12H #28 tabs 03/20/22 clavulanate 125 mg tablet Allergies Allergy/AdvReac Type Severity Reaction Status Date / Time sumatriptan [From IMITREX] Allergy Severe THROAT Verified 09/05/21 20:43 SWELLING metoclopramide [From REGLAN] Allergy Intermediate HEART RACES Verified 09/05/21 20:43 Review of Systems Review of Systems: No fever there is shows no focal weakness Yes all other systems are reviewed and are negative [facility] Past Medical History Attestation statement: The following information was validated with the patient. Medical History Anxiety Depression Social History Social History Advance Directives: No Advance Directives Information Provided: Yes Physical Exam ED Vital Signs: Vital Signs - 24 hr 03/21/22 23:56 03/22/22 02:44 03/22/22 03:21 Temperature 99.2 F 97.9 F 97.4 F Pulse Rate 73 76 55 Respiratory Rate 16 16 16 Blood Pressure 124/55 L 111/45 L 118/69 Pulse Oximetry 97 97 96 Oxygen Delivery Method Room Air Room Air Room Air BMI result Body Mass Index 38.2 Appearance: Alert. Oriented X3. No acute distress. Eyes: Pupils equal, round and reactive to light. ENT: Pharynx normal. Neck: Normal inspection. Neck supple. No lymph nodes noted. No crepitus CVS: Normal heart rate and rhythm. Pulses normal. Normal S1 and S2 Respiratory: No respiratory distress. Breath sounds normal. No Wheezing. No rales Abdomen: Soft and nontender. No rigidity. No distention. good BS x4 Skin: Examination of the dorsum of left foot showed redness swelling from the base of the toes up to the ankle area. Approximately 8 cm by 6 cm in size. Slightly warm to touch. No abscess palpable. No discharge noted from the wound. Extremities: No lower extremity edema. Neurovascular intact to all extremities. No Lacerations. Capillary refill less than 2 seconds Neuro: Oriented X 3. No motor deficit. No sensory deficit. Moving all extermities. No slurred speech MDM - Animal Bite MDM Narrative Medical decision making narrative: Previous chart reviewed. Picture of the previous wound is approximately the same as it is today. Just started on antibiotics 2 days prior. Patient's white count is 16 however patient chronically has elevated white cells. She has no fever no chills no systemic complaints. He is well appearing. If x-ray showed no fracture will ask patient to continue antibiotics for another 2 days. Will monitor carefully. Will have patient follow-up closely. Patient states understanding. She is in stable condition. X-ray showed no acute fracture. Will discharge patient home continue current antibiotics. Differential Diagnosis Differential diagnosis: Likely cat bite Medical Records Attestation: I reviewed the patient's medical records. Lab Data Attestation: I reviewed the patient's lab results. Result diagrams: 03/22/22 00:19 03/22/22 00:19 Labs: Lab Results 03/22/22 03/22/22 03/22/22 Range/Units 00:19 00:19 00:19 WBC 16.2 H (4.8-10.8) X10*3/uL RBC 3.97 L (4.20-5.50) X10*6/uL Hgb 12.6 (12.0-16.0) g/dl Hct 37.4 (37.0-47.0) % MCV 94.2 (80.0-98.0) fL MCH 31.7 (27.0-33.0) pg MCHC 33.7 (31.0-35.0) g/dl RDW 13.7 (11.0-16.0) % Plt Count 354 (160-400) X10*3/uL MPV 10.0 (9.4-12.3) fL Immature Gran % (Auto) 0.7 H (0.0-0.4) % Neut % (Auto) 59.8 (45-73) % Lymph % (Auto) 31.0 (20-40) % [place] % (Auto) 5.1 (2-11) % Eos % (Auto) 3.0 (0-4) % Baso % (Auto) 0.4 (0-2) % Lymph # (Auto) 5.0 H (1.2-4.9) X10*3/uL [place] # (Auto) 0.8 (0.1-1.2) X10*3/uL Eos # (Auto) 0.5 H (0.0-0.4) X10*3/uL Baso # (Auto) 0.1 (0.0-0.2) X10*3/uL Abs Immat Gran (auto) 0.11 H (0.00-0.03) X10*3/uL Absolute Neuts (auto) 9.7 H (2.0-8.3) x10*3/uL Absolute Nucleated RBC 0.000 (0.0-0.012) X10*3/uL Nucleated RBC % (auto) 0.0 (0.0-0.2) /100WBC Smear Tech's Comments VERIFIED Sodium 140 (135-145) mmol/L Potassium 4.3 (3.3-5.1) mmol/L Chloride 111 H (96-108) mmol/L Carbon Dioxide 21 L (22-29) mmol/L Anion Gap 12 (12-20) BUN 12 (9-16) mg/dL Creatinine 0.73 (0.5-1.4) mg/dL Estim Creat Clear Calc 117.6 Estimated GFR > 60 Random Glucose 86 (60-115) mg/dL Lactic Acid 0.7 (0.5-2.0) mmol/L Calcium 9.0 D (8.4-10.2) mg/dL Discharge Plan Discharge Clinical Impression: Cat bite Patient Disposition: Home, Self-Care Instructions: Animal Bite (ED) Additional Instructions: Continue current antibiotics Prescriptions: No Action sucralfate [Carafate] 100 mg/mL suspension 10 ml PO BID Qty: 420 0RF amoxicillin-pot clavulanate 875-125 mg tablet 1 tab PO Q12H Qty: 28 0RF hydrochlorothiazide 25 mg tablet 25 mg PO DAILY 30 Days Qty: 30 0RF Referrals: Esdras Smith MD [Primary Care Provider] -
[2022-03-22 03:21] VITALS: BP 118/69; PULSE 55; RESP 16; TEMP 36.3; O2SAT 96
[2022-03-22 04:22] VITALS: BP 114/67; PULSE 57; RESP 17; O2SAT 98
== END 2022-03-22 04:24 | disposition home or self-care (01) ==
PROVIDERS: Emergency Provider Emergency Medicine Emergency Medical Services; PCP Internal Medicine
DX: S90.872A Other superficial bite of left foot, initial encounter (principal); W55.01XA Bitten by cat, initial encounter; Y93.9 Activity, unspecified; Y92.9 Unspecified place or not applicable; Y99.9 Unspecified external cause status; Z79.899 Other long term (current) drug therapy
CPT/HCPCS: 36415; 73630; 80048; 83605; 85025; 87040; 99283

== ENCOUNTER 2022-04-16 10:54 | Day surgery (SDC) | payer OTHER, SELFPAY ==
[2022-04-16 07:01] VITALS: BMI 37.3
[2022-04-16 11:11] VITALS: BP 126/88; PULSE 74; RESP 18; TEMP 36.3; O2SAT 97
[2022-04-16 11:13] LABS: UPreg QC Valid YES; Urine Pregnancy NEGATIVE (NEGATIVE)
[2022-04-16] MEDS: Lactated Ringers 1,000 ML 50 ML IVCONT (11:22)
--- NOTE | 2022-04-16 11:27 | HO.ANESPROP2 ---
FORMERLY [facility] Past Medical History Medical History (Updated 04/10/22 @ 15:10 by Mila Ellington RN) Anxiety Depression Elevated cholesterol GERD (gastroesophageal reflux disease) Migraine headache Panic attacks Polycystic ovaries Family History Family history of problems with anesthesia: No Surgical History Surgical History (Updated 04/10/22 @ 15:10 by Mila Ellington, RN) History of surgery on wrist History of Problems with Anesthesia: No Social History Social History Patient Tobacco Use Status: Current everyday Tobacco user Are you DNR?: No Advance Directives: No Advance Directives Information Provided: Yes Patient : No FDLMP: now Meds Allergies Allergy/AdvReac Type Severity Reaction Status Date / Time sumatriptan [From IMITREX] Allergy Severe THROAT Verified 04/10/22 15:11 SWELLING metoclopramide [From REGLAN] Allergy Intermediate HEART RACES Verified 04/10/22 15:11 Active Medications: Current Medications Lactated Ringer's (Lr) 1,000 mls @ 50 mls/hr IVCONT .Q20H CALEB Last Admin: 04/16/22 11:22 Dose: 50 mls/hr Home Medications Medication Instructions Recorded Confirmed Last Taken Type dicyclomine 20 mg tablet 1 tab PO DIRECTED 04/10/22 04/10/22 04/16/22 History fluoxetine 20 mg capsule 60 mg PO DAILY 04/10/22 04/10/22 04/16/22 History fluticasone propionate 50 1 spray intranasal DAILY 04/10/22 04/10/22 Unknown History mcg/actuation nasal spray,suspension hydroxyzine HCl 25 mg tablet tab 04/10/22 Unknown History olanzapine 2.5 mg tablet 1 tab PO DAILY 04/10/22 04/10/22 04/16/22 History omeprazole 40 mg capsule,delayed 1 cap PO DAILY 04/10/22 04/10/22 Unknown History release topiramate 25 mg tablet 1 tab PO DAILY 04/10/22 04/16/22 04/16/22 History Exam Exam Date and Time: April 16, 2022 1127 Height,Weight and Vital Signs: Height 5 ft 3 in Weight 95.708 kg Last Vital Signs Temp 97.4 F 04/16/22 11:11 Pulse 74 04/16/22 11:11 Resp 18 04/16/22 11:11 BP 126/88 04/16/22 11:11 Pulse Ox 97 04/16/22 11:11 O2 Del Method 04/16/22 11:11 Pertinent Lab Results Pertinent Lab Results: Laboratory Tests 04/16/22 11:04 Urine Test NEGATIVE Airway Mallampati Class: I TM Dist: >3cm Neck ROM: Full Assessment and Plan Assessment Anesthesia Assessment: Anesthesia Plan Discussed, Smoking Cess. Discussed and Chart Reviewed Final Anesthetic Review Family History of Problems with Anesthesia: No History of Problems with Anesthesia: No NPO: Yes ASA Class: III Final Preanesthetic Review: No Changes in Pt Med Stat, Meds/Allgs Chart Reviewed, Consent Obtained/Reviewed and Anes Risks/Benef Reviewed Patient Risk: Intermediate Procedure Risk: Low Anesthetic Plan Anesthetic Plan: MAC: Disposition: Standard PACU
--- NOTE | 2022-04-16 12:28 | MHC.SHP ---
Pre-Procedural Eval Section A Date of Service: 04/16/22 The patient is an INPATIENT: No Changes since office visit: No Cold of Flu in the past 2 weeks, No New Medical Problems, No Changes in Medication and No Patient answered all questions The History & Physical has been completed within 30 days and I have reviewed it.: Yes Section B Chief Complaint: diarrhea,hx of polyps Allergies: Allergies Allergy/AdvReac Type Severity Reaction Status Date / Time sumatriptan [From IMITREX] Allergy Severe THROAT Verified 04/10/22 15:11 SWELLING metoclopramide [From REGLAN] Allergy Intermediate HEART RACES Verified 04/10/22 15:11 Plan I have reviewed the history and physical and performed a pertinent physical examination on my patient. No changes have occurred unless specified.
[2022-04-16 13:09] VITALS: BP 110/71; PULSE 82; RESP 16; TEMP 36.1; O2SAT 96
--- NOTE | 2022-04-16 13:09 | PM.OP ---
Brief Operative Note Date of Service: 04/16/22 Pre-op diagnosis: diarrhea Post-op diagnosis: other (ileitis) Surgeon: Anrdew Arenas Anesthesia: MAC Was an Javascript Application Developer used for this Procedure?: No Estimated blood loss (mL): 2 Pathology: other Condition: stable Disposition: PACU
[2022-04-16 13:59] VITALS: BP 121/80; PULSE 78; RESP 16; TEMP 36.7; O2SAT 97
--- NOTE | 2022-04-16 23:17 | OP_ITS ---
SURGEON: Andrew Arenas MD INDICATIONS: Diarrhea and prior history of adenomatous colon polyps. PREOPERATIVE DIAGNOSIS: POSTOPERATIVE DIAGNOSIS: PROCEDURE PERFORMED: ESTIMATED BLOOD LOSS: COMPLICATIONS: ANESTHESIA: ASSISTANTS: SPECIMENS: PROCEDURE: Colonoscopy to the terminal ileum with biopsy. MEDICATIONS: Monitored anesthesia care. DESCRIPTION OF PROCEDURE: History and physical performed. The risks and benefits of the procedure were explained to the patient. Informed consent was obtained. The patient was placed in the left lateral decubitus position. A digital rectal exam was performed and was found to be normal. The Olympus pediatric video colonoscope was introduced into the rectum and advanced to the cecum without difficulty. The cecum was identified by transillumination, palpation, and identification of ileocecal valve. Examination was performed. The scope was removed. She tolerated the procedure well and was taken to recovery area in stable condition. FINDINGS: The terminal ileum was examined. This showed ileitis extending over the last 25 cm of the terminal ileum with mild inflammatory change and some mild superficial ulceration. The findings were nonspecific. Biopsies were obtained from the terminal ileum. The visualized colonic mucosa was within normal limits without evidence of colitis or ulceration. Biopsies were obtained from the right colon and sigmoid. There was mild diverticulosis involving the right colon. No polyps were identified. Retroflexed examination showed some hypertrophic anal papillae, but no evidence of fistulas or fissures. IMPRESSION: Ileitis. RECOMMENDATION: Follow up the biopsy results. MD GEETA Muse/SHIRLEY / [id number]
== END 2022-04-16 14:19 | disposition home or self-care (01) ==
PROVIDERS: Anesthesiology; PCP Internal Medicine; Visit Provider Internal Medicine Gastroenterology
PROC: 0DJD8ZZ Inspection of Lower Intestinal Tract, Via Natural or Artificial Opening Endoscopic (ICD-10-PCS; CPT 45378; principal; 2022-04-16 12:10)
DX: K52.9 Noninfective gastroenteritis and colitis, unspecified (principal); Z86.010 Personal history of colon polyps; K57.30 Diverticulosis of large intestine without perforation or abscess without bleeding; K62.89 Other specified diseases of anus and rectum; K21.9 Gastro-esophageal reflux disease without esophagitis; E78.00 Pure hypercholesterolemia, unspecified; G43.909 Migraine, unspecified, not intractable, without status migrainosus; F41.0 Panic disorder [episodic paroxysmal anxiety]; Z79.899 Other long term (current) drug therapy; F17.210 Nicotine dependence, cigarettes, uncomplicated
CPT/HCPCS: 45380; 81025; 88305

== ENCOUNTER 2022-07-01 07:27 | Outpatient (REF) | payer OTHER, SELFPAY ==
--- NOTE | ~2022-07-01 | XR_ITS ---
EXAMINATION: XR CHEST CLINICAL INFORMATION: Gastroesophageal reflux disease COMPARISON: Previous chest x-ray most recent December 2021 TECHNIQUE: 2 views of the chest were obtained. FINDINGS: No significant abnormality is noted involving the heart, lungs, mediastinum, bony thorax or soft tissues. XR/XR chest 2V IMPRESSION: Unremarkable examination.
--- NOTE | 2022-07-01 07:34 | ECG_ITS ---
Test Reason : check rhythm Blood Pressure : / mmHG Vent. Rate : 062 BPM Atrial Rate : 062 BPM P-R Int : 138 ms QRS Dur : 100 ms QT Int : 416 ms P-R-T Axes : -11 041 028 degrees QTc Int : 422 ms Normal sinus rhythm Normal ECG When compared with ECG of 11-JAN-2022 10:24, No significant change was found Referred By: Fitz Mukherjee Electronically Signed By:CANDACE ELLIS MD
[2022-07-01 07:41] LABS: MANUAL DIFF FLAG NO
[2022-07-01 08:34] LABS: Basophils Absolute Auto 0.1 X10*3/uL (0.0-0.2); Basophils Percent Auto 0.5 % (0-2); Eosinophils Absolute Auto 0.5 X10*3/uL (0.0-0.4); Eosinophils Percent Auto 3.5 % (0-4); Hematocrit 39.8 % (37.0-47.0); Hemoglobin 13.4 g/dl (12.0-16.0); Imm Gran Abs Auto 0.15 X10*3/uL (0.00-0.03); Imm Gran Pct Auto 1.2 % (0.0-0.4); Lymphocytes Absolute Auto 4.4 X10*3/uL (1.2-4.9); Lymphocytes Percent Auto 33.7 % (20-40); Mean Corpuscular HGB Conc 33.7 g/dl (31.0-35.0); Mean Platelet Volume 10.4 fL (9.4-12.3); Monocytes Absolute Auto 0.7 X10*3/uL (0.1-1.2); Monocytes Percent Auto 5.5 % (2-11); Neutrophils Absolute Auto 7.2 x10*3/uL (2.0-8.3); Neutrophils Percent Auto 55.6 % (45-73); Platelet Count 344 X10*3/uL (160-400); Red Blood Count 4.19 X10*6/uL (4.20-5.50); Red Cell Distribution Width 13.4 % (11.0-16.0)
[2022-07-01 09:25] LABS: Alanine Aminotransferase 22 U/L (0-31); Albumin Level 4.2 g/dL (3.5-5.0); Alkaline Phosphatase 98 U/L (39-117); Anion Gap 15 (12-20); Aspartate Amino Transferase 19 U/L (5-31); Bilirubin Total 0.3 mg/dL (0.0-1.0); Blood Urea Nitrogen 14 mg/dL (9-16); C Reactive Protein 0.41 mg/dL (< or = 0.50); Calcium 9.4 mg/dL (8.4-10.2); Carbon Dioxide 24 mmol/L (22-29); Chloride 105 mmol/L (96-108); Cholesterol 240 mg/dL; Estimated Glomerular Filt Rate > 60; Glucose Random 78 mg/dL (60-115); HDL Cholesterol 44 mg/dL; Iron 85 mcg/dL (30-160); LDL Cholesterol Calculated 171 mg/dl; Percent Iron Saturation 24 % (15-50); Potassium 4.6 mmol/L (3.3-5.1); Sodium 139 mmol/L (135-145); Total Iron Binding Capacity 360 mcg/dL (228-428); Triglycerides 126 mg/dL; Unsaturated Iron Binding 275 ug/dL
[2022-07-01 09:33] LABS: Estimated Average Glucose 91 mg/dL; Hemoglobin A1c % 4.8 %
[2022-07-01 09:36] LABS: Folate 14.1 ng/mL (> or = 4.0); Vitamin B12 286 pg/mL (200-900)
[2022-07-01 09:54] LABS: Ferritin 52 ng/mL (10-122); Insulin 11 uU/mL (2-29); TSH reflex Free T4 0.91 uIU/mL (0.32-4.0)
[2022-07-01 10:28] LABS: Vitamin D 25-OH Total 15.4 ng/mL (>30)
[2022-07-02 12:16] LABS: Calcium (PTHI) 9.3 mg/dL (8.6-10.2); PTHI 33 pg/mL (16-77)
[2022-07-03 19:41] LABS: Zinc 64 mcg/dL (60-130)
[2022-07-04 19:47] LABS: Vitamin A 45 mcg/dL (38-98)
[2022-07-09 05:47] LABS: Vitamin B1 10 nmol/L (8-30)
== END 2022-07-01 07:28 | disposition home or self-care (01) ==
LOC: HO.XRAY 07:27
PROVIDERS: PCP Internal Medicine; Visit Provider Surgery
DX: K21.9 Gastro-esophageal reflux disease without esophagitis (principal); E78.00 Pure hypercholesterolemia, unspecified; E66.01 Morbid (severe) obesity due to excess calories
CPT/HCPCS: 36415; 71046; 80053; 80061; 82306; 82607; 82728; 82746; 83036; 83525; 83540; 83970; 84425; 84443; 84590; 84630; 85025; 86140; 93005

== ENCOUNTER 2022-07-18 | Outpatient (REF) | payer OTHER, SELFPAY ==
[2022-07-20 12:08] LABS: H Pylori Breath Test Negative (Negative)
== END 2022-07-18 00:01 | disposition home or self-care (01) ==
LOC: HO.LNP
PROVIDERS: Visit Provider Surgery
DX: E66.01 Morbid (severe) obesity due to excess calories (principal); K21.9 Gastro-esophageal reflux disease without esophagitis; E78.00 Pure hypercholesterolemia, unspecified
CPT/HCPCS: 83013

== ENCOUNTER → 2022-07-18 12:47 | Outpatient (BNVA) | payer OTHER, SELFPAY | PROVIDERS: PCP Internal Medicine; Visit Provider Physician Assistant Surgical | DX: Z11.0 Encounter for screening for intestinal infectious diseases (principal) | CPT/HCPCS: 99211 ==

== ENCOUNTER → 2022-08-05 13:00 | Outpatient (BNVA) | payer OTHER, SELFPAY | PROVIDERS: PCP Internal Medicine; Visit Provider Counselor Mental Health | DX: F33.1 Major depressive disorder, recurrent, moderate (principal); F41.1 Generalized anxiety disorder; E66.01 Morbid (severe) obesity due to excess calories | CPT/HCPCS: 90791 ==

== ENCOUNTER → 2022-08-20 14:50 | Outpatient (BNVA) | payer OTHER, SELFPAY | PROVIDERS: PCP Internal Medicine; Visit Provider Dietitian, Registered | DX: E66.01 Morbid (severe) obesity due to excess calories (principal); E78.00 Pure hypercholesterolemia, unspecified; F17.210 Nicotine dependence, cigarettes, uncomplicated; Z68.39 Body mass index [BMI] 39.0-39.9, adult | CPT/HCPCS: 97802 ==

== ENCOUNTER → 2022-08-21 13:15 | Outpatient (BNVA) | payer OTHER, SELFPAY | PROVIDERS: PCP Internal Medicine; Visit Provider Counselor Mental Health | DX: Z13.89 Encounter for screening for other disorder (principal) ==

== ENCOUNTER → 2022-08-26 08:35 | Outpatient (BNVA) | payer OTHER, SELFPAY | PROVIDERS: PCP Internal Medicine; Visit Provider Surgery | DX: Z13.89 Encounter for screening for other disorder (principal) ==

== ENCOUNTER 2022-09-04 07:39 | Outpatient (REF) | payer OTHER, SELFPAY ==
--- NOTE | ~2022-09-04 | US_ITS ---
EXAMINATION: US COMPLETE ABDOMEN WITH LIVER ELASTOGRAPHY CLINICAL INFORMATION: Gastroesophageal reflux disease without esophagitis. COMPARISON: Abdominal ultrasound dated 10/10/2019. TECHNIQUE: Real-time imaging of the abdominal viscera. Noninvasive ultrasound liver fibrosis assessment is performed using Florentino ElastPQ point quantification shear wave elastography (2D-SWE) with a C5-2 MHz transducer. Multiple elastography samples are obtained. FINDINGS: PANCREAS: Normal. The visualized pancreatic head and body are normal in appearance. The remainder of the pancreas is obscured from visualization by the overlying bowel gas. ABDOMINAL AORTA: The proximal, middle, and distal aortic segments are normal in caliber. INFERIOR VENA CAVA: Visualized portions are normal. LIVER: Normal. The liver demonstrates normal size, contour and echogenicity. No focal lesion or intrahepatic biliary duct dilatation. The right lobe measures 16.9 cm in length. The left lobe measures 12.1 cm in length. Portal flow is towards the liver (hepatopetal). Shear wave liver elastography median stiffness is 1.69 m/s (reference: normal median stiffness is 1.3 m/s or less). IQR/median stiffness to assess sampling precision is 0.05 (reference: good quality data set is IQR/median stiffness of 0.15 or less). GALLBLADDER: Normal. The gallbladder is physiologically distended without evidence of stones, sludge, polyps, wall thickening or pericholecystic fluid. COMMON BILE DUCT: Normal in caliber measuring 0.3 cm in diameter. RIGHT KIDNEY: Normal. No hydronephrosis. No renal calculi or focal parenchymal lesions. The kidney measures 10.7 cm in maximum dimension. LEFT KIDNEY: Normal. No hydronephrosis. No renal calculi or focal parenchymal lesions. The kidney measures 11.5 cm in maximum dimension. SPLEEN: Normal. The spleen measures 10.1 cm in maximum dimension. FREE FLUID: None. US/US abdomen comp w elastography IMPRESSION: Liver elastography: In the absence of other known clinical signs, measurements rule out compensated advanced chronic liver disease. If there are known clinical signs, further testing may be needed for confirmation. REFERENCE: Society of Radiologists in Ultrasound Liver Stiffness Thresholds (2020): LIVER STIFFNESS THRESHOLDS: *Liver Stiffness equal or less than 1.3 m/s: High probability of being normal. *Liver Stiffness less than 1.7 m/s: In the absence of other known clinical signs, rules out compensated advanced chronic liver disease. *Liver Stiffness 1.7-2.1 m/s: Suggestive of compensated advanced chronic liver disease but need further test for confirmation. *Liver Stiffness over 2.1 m/s: Rules in compensated advanced chronic liver disease. *Liver Stiffness over 2.4 m/s: Suggestive of clinically significant portal hypertension. QUALITY OF DATA SET: *IQR/Median value equal or less than 0.15 implies a quality data set. *IQR/Median value over 0.15 implies a poor quality data set. SIGNIFICANT CHANGE FROM PRIOR EXAM: Significant change if liver stiffness measurement is 10% or greater from prior exam. OTHER CONSIDERATIONS: The stage of liver fibrosis may be overestimated in the setting of acute hepatitis, liver inflammation, elevated liver function tests, hepatic vascular congestion, obstructive cholestasis, non-fasting state, and infiltrative diseases such as amyloidosis and lymphoma. In some patients with NAFLD, the liver stiffness thresholds for compensated advanced chronic liver disease may be lower. In causes other than viral hepatitis and NAFLD, liver stiffness thresholds are not well established.
--- NOTE | ~2022-09-04 | FL_ITS ---
EXAMINATION: XR FLUOROSCOPY UPPER GI WITH AIR CLINICAL INFORMATION: Gastroesophageal reflux disease. COMPARISON: 07/28/2013 TECHNIQUE: Air-contrast upper GI examination. FINDINGS: Patient swallowed thin and thick barium and half-inch diameter barium tablet without difficulty. No nasopharyngeal reflux or tracheal aspiration identified. There is normal esophageal motility without evidence of persistent stricture or ulcerations/erosions. No hiatal hernia was identified. No gastroesophageal reflux was identified during the study including with water siphon test. The stomach demonstrated normal distensibility without evidence of abnormal mass or ulceration. There was no delay in gastric emptying. There is a small duodenal diverticulum off the third portion of the duodenum. FLUOROSCOPY TIME: 2 minutes DOSE AREA PRODUCT: 22.387 Gy-cm2 FL/FL upper GI w air IMPRESSION: Small duodenal diverticulum. Otherwise unremarkable air-contrast upper GI examination.
== END 2022-09-04 07:40 | disposition home or self-care (01) ==
LOC: HO.US 07:39
PROVIDERS: PCP Internal Medicine; Visit Provider Surgery
DX: E66.01 Morbid (severe) obesity due to excess calories (principal); K21.9 Gastro-esophageal reflux disease without esophagitis; E78.00 Pure hypercholesterolemia, unspecified
CPT/HCPCS: 74246; 76705; 76981

== ENCOUNTER → 2022-09-23 09:04 | Outpatient (BNVA) | payer OTHER, SELFPAY | PROVIDERS: PCP Internal Medicine; Visit Provider Surgery | DX: Z13.89 Encounter for screening for other disorder (principal) ==

== ENCOUNTER → 2022-10-23 08:47 | Outpatient (BNVA) | payer OTHER, SELFPAY | PROVIDERS: PCP Internal Medicine; Visit Provider Surgery | DX: Z13.89 Encounter for screening for other disorder (principal) ==

== ENCOUNTER 2022-11-05 09:35 | Emergency (ER) | payer OTHER, SELFPAY ==
[2022-11-05 09:54] VITALS: BP 134/76; PULSE 79; RESP 19; TEMP 36.1; O2SAT 96; BMI 40.7
--- NOTE | 2022-11-05 11:07 | ED.GENADULT ---
HPI - General Adult General Chief complaint: General Medical Stated complaint: dizziness Time Seen by Provider: 11/05/22 11:07 Source: patient Mode of arrival: ambulatory Limitations: no limitations History of Present Illness HPI narrative: patient with lightheadedness that she feels into her mouth and lips. She denies hyperventilation. She was seen a week ago with same symptoms at Urgent Care, and had EKG, fingerstick and UA. She still doesn't feel right. States that she suffers with anxiety but has not had any symptoms. She has not taken her fluoxetine in months. Onset (ago): week(s) Location: face Severity: mild Related Data Home Medications Medication Instructions Recorded Confirmed dicyclomine 20 mg tablet 1 tab PO DIRECTED 04/10/22 06/28/22 fluoxetine 20 mg capsule 60 mg PO DAILY 04/10/22 06/28/22 fluticasone propionate 50 1 spray intranasal DAILY 04/10/22 06/28/22 mcg/actuation nasal spray,suspension olanzapine 2.5 mg tablet 1 tab PO DAILY 04/10/22 06/28/22 omeprazole 40 mg capsule,delayed 1 cap PO DAILY 04/10/22 06/28/22 release topiramate 25 mg tablet 1 tab PO DAILY 04/10/22 06/28/22 mesalamine 500 mg capsule,extended 1,000 mg PO TID 06/28/22 06/28/22 release (Pentasa) olanzapine 2.5 mg tablet 2.5 mg PO BEDTIME 06/28/22 06/28/22 Previous Rx's Medication Instructions Recorded cholecalciferol (vitamin D3) 125 125 mcg PO DAILY #30 caps 07/01/22 mcg (5,000 unit) capsule mecobalamin (vitamin B12) 1,000 1,000 mcg sublingual DAILY #30 tabs 07/01/22 mcg disintegrating tablet,sublingual blood pressure test kit-large #1 ea 10/17/22 ([employer] Blood Pressure Monitor kit) phentermine 37.5 mg capsule 37.5 mg PO DAILY #14 caps 10/17/22 Allergies Allergy/AdvReac Type Severity Reaction Status Date / Time sumatriptan [From IMITREX] Allergy Severe THROAT Verified 07/18/22 13:11 SWELLING metoclopramide [From REGLAN] Allergy Intermediate HEART RACES Verified 07/18/22 13:11 Review of Systems Review of Systems: Yes all other systems are reviewed and are negative Constitutional: Comments: lightheaded tingling PMFSH Past Medical History Medical History Anxiety Back pain Depression Elevated cholesterol GERD (gastroesophageal reflux disease) Migraine headache Morbid obesity Panic attacks Polycystic ovaries Surgical History History of surgery on wrist Family History Family History Mother Kidney disease Father No problems noted. Brother No problems noted. Daughter No problems noted. Social History Social History Alcohol intake: current Alcohol intake frequency: holidays/special occasions only Patient Tobacco Use Status: Current everyday Tobacco user Cigarettes Per Day: 4 Smoked in Last 30 Days: Yes Use of substances other than those prescribed or required for medical reasons: Yes Substance Use Type: Marijuana Advance Directives: No Advance Directives Information Provided: Yes Patient : No Physical Exam ED Vital Signs: Vital Signs - 24 hr 11/05/22 09:54 11/05/22 11:18 Temperature 97 F Pulse Rate 79 70 Respiratory Rate 19 15 Blood Pressure 134/76 114/71 Pulse Oximetry 96 100 Oxygen Delivery Method Room Air Room Air BMI result Body Mass Index 40.7 Const General: healthy appearing Nutritional Appearance: average body habitus Orientation/consciousness: oriented to person and patient oriented x3 Limitations: no limitations HENMT Head: Yes normal to inspection Ears: external ears normal General nose exam: Normal external nose present Mouth: Normal oral and palatal mucosa present and oropharynx normal Throat: Yes posterior oropharynx normal Eyes General: appearance normal, both eyes and all related structures Neck Neck: Yes normal visual inspection Chest Chest palpation & inspection: normal inspection of the chest Resp Auscultation: clear to auscultation bilaterally Cardio Jugular venous distension: no JVD Rate: regular rate Rhythm: regular rhythm Heart sounds: S1 normal heart sound present and S2 normal heart sound present GI Inspection: Yes normal to inspection Palpation (GI): Soft to palpation, nontender and No hepatosplenomegaly present Auscultation: normal bowel sounds General: Yes no CVA tenderness Back/Spine/Pelvis Back: no CVA tenderness Skin General skin exam: no rashes or lesions noted Neuro General: oriented to person and patient oriented x3 Cranial nerves: Yes CN's II-XII intact bilaterally Motor exam (neuro): 5/5 motor strength present throughout Extrem General: Yes normal to inspection Psych Appearance: grossly normal Course Reevaluation(s) Reevaluation #1: Patient was nonfocal resting comfortably, was waiting on UA when patient eloped Medical Decision Making Differential Diagnosis Differential Diagnoses: The differential diagnosis associated with the presentation includes (anxiety, depression, electrolyte abnormality) Lab Data MDM Lab Attestation statement: I reviewed the patient's lab results. 11/05/22 11:12 11/05/22 11:12 Labs: Lab Results 11/05/22 11/05/22 Range/Units 11:12 11:12 WBC 12.1 H (4.8-10.8) X10*3/uL RBC 4.38 (4.20-5.50) X10*6/uL Hgb 14.0 (12.0-16.0) g/dl Hct 41.0 (37.0-47.0) % MCV 93.6 (80.0-98.0) fL MCH 32.0 (27.0-33.0) pg MCHC 34.1 (31.0-35.0) g/dl RDW 12.8 (11.0-16.0) % Plt Count 342 (160-400) X10*3/uL MPV 10.2 (9.4-12.3) fL Immature Gran % (Auto) 0.5 H (0.0-0.4) % Neut % (Auto) 52.5 (45-73) % Lymph % (Auto) 37.3 (20-40) % [place] % (Auto) 5.4 (2-11) % Eos % (Auto) 4.0 (0-4) % Baso % (Auto) 0.3 (0-2) % Lymph # (Auto) 4.5 (1.2-4.9) X10*3/uL [place] # (Auto) 0.7 (0.1-1.2) X10*3/uL Eos # (Auto) 0.5 H (0.0-0.4) X10*3/uL Baso # (Auto) 0.0 (0.0-0.2) X10*3/uL Abs Immat Gran (auto) 0.06 H (0.00-0.03) X10*3/uL Absolute Neuts (auto) 6.3 (2.0-8.3) x10*3/uL Absolute Nucleated RBC 0.000 (0.0-0.012) X10*3/uL Nucleated RBC % (auto) 0.0 (0.0-0.2) /100WBC Sodium 140 (135-145) mmol/L Potassium 4.3 (3.3-5.1) mmol/L Chloride 108 (96-108) mmol/L Carbon Dioxide 24 (22-29) mmol/L Anion Gap 12 (12-20) BUN 11 (9-16) mg/dL Creatinine 0.73 (0.5-1.4) mg/dL Estim Creat Clear Calc 120.7 Estimated GFR > 60 Random Glucose 83 (60-115) mg/dL Calcium 9.1 (8.4-10.2) mg/dL Tests considered The following testing was considered but not selected: I considered a head CT but patient was nonfocal and history and physical more consistent with anxiety Discharge Plan Discharge Clinical Impression: Anxiety Patient Disposition: Elopement Prescriptions: No Action cholecalciferol (vitamin D3) 125 mcg (5,000 unit) capsule 125 mcg PO DAILY Qty: 30 2RF mecobalamin (vitamin B12) 1,000 mcg tablet,disintegrating 1,000 mcg sublingual DAILY Qty: 30 2RF Rx Instructions: place tablet under tongue and allow to dissolve for at least30 secs before swallowing phentermine 37.5 mg capsule 37.5 mg PO DAILY Qty: 14 0RF Rx Instructions: must administer 30 minutes before or 1-2 hours after breakfast (DME) blood pressure test kit-large [CareTouch BP Monitor] Kit See Rx Instructions .ROUTE .MEDSUPPLY Qty: 1 0RF Rx Instructions: As directed topiramate 25 mg tablet 1 tab PO DAILY olanzapine 2.5 mg tablet 1 tab PO DAILY omeprazole 40 mg capsule,delayed release(DR/EC) 1 cap PO DAILY dicyclomine 20 mg tablet 1 tab PO DIRECTED fluoxetine 20 mg capsule 60 mg PO DAILY fluticasone propionate 50 mcg/actuation spray,suspension 1 spray INTRANASAL DAILY olanzapine 2.5 mg tablet 2.5 mg PO BEDTIME mesalamine [Pentasa] 500 mg capsule, extended release 1,000 mg PO TID Interventions: ED Discharge Assessment Last Done: 11/05/22 14:37 Discharge Date/Time: 11/05/22 14:00
[2022-11-05 11:18] VITALS: BP 114/71; PULSE 70; RESP 15; O2SAT 100
[2022-11-05 11:22] LABS: MANUAL DIFF FLAG NO
[2022-11-05 11:23] LABS: Basophils Percent Auto 0.3 % (0-2); Eosinophils Absolute Auto 0.5 X10*3/uL (0.0-0.4); Imm Gran Abs Auto 0.06 X10*3/uL (0.00-0.03); Imm Gran Pct Auto 0.5 % (0.0-0.4); Lymphocytes Absolute Auto 4.5 X10*3/uL (1.2-4.9); Lymphocytes Percent Auto 37.3 % (20-40); Mean Corpuscular HGB Conc 34.1 g/dl (31.0-35.0); Mean Corpuscular Volume 93.6 fL (80.0-98.0); Mean Platelet Volume 10.2 fL (9.4-12.3); Monocytes Absolute Auto 0.7 X10*3/uL (0.1-1.2); Monocytes Percent Auto 5.4 % (2-11); Neutrophils Absolute Auto 6.3 x10*3/uL (2.0-8.3); Neutrophils Percent Auto 52.5 % (45-73); Platelet Count 342 X10*3/uL (160-400); Red Blood Count 4.38 X10*6/uL (4.20-5.50); Red Cell Distribution Width 12.8 % (11.0-16.0); White Blood Count 12.1 X10*3/uL (4.8-10.8)
[2022-11-05 11:37] LABS: Anion Gap 12 (12-20); Blood Urea Nitrogen 11 mg/dL (9-16); Calcium 9.1 mg/dL (8.4-10.2); Carbon Dioxide 24 mmol/L (22-29); Chloride 108 mmol/L (96-108); Creatinine Clr Calc Pharmacy 120.7; Estimated Glomerular Filt Rate > 60; Glucose Random 83 mg/dL (60-115); Potassium 4.3 mmol/L (3.3-5.1); Sodium 140 mmol/L (135-145)
--- NOTE | 2022-11-05 11:57 | PC.NURSE ---
Patient in with dizziness mostly when she changed positions. Patient alert and oriented; IV established and blood work obtained.
== END 2022-11-05 14:00 | disposition left against medical advice (07) ==
PROVIDERS: Emergency Provider Emergency Medicine; PCP Internal Medicine
DX: R42 Dizziness and giddiness (principal); F17.210 Nicotine dependence, cigarettes, uncomplicated; Z71.6 Tobacco abuse counseling; F12.90 Cannabis use, unspecified, uncomplicated; Z79.899 Other long term (current) drug therapy
CPT/HCPCS: 36415; 80048; 85025; 99283; 99284

== ENCOUNTER 2023-04-20 09:24 | Emergency (ER) | payer OTHER, SELFPAY ==
--- NOTE | ~2023-04-20 | XR_ITS ---
EXAMINATION: XR THORACIC SPINE, 3 VIEWS XR LUMBAR SPINE, 3 VIEWS XR SACRUM AND COCCYX, 3 VIEWS CLINICAL INFORMATION: Fall, pain COMPARISON: None available. TECHNIQUE: 3 views of the thoracic spine 3 views of the lumbar spine 3 views of the sacrum and coccyx FINDINGS: 5 nonrib-bearing lumbar-type vertebral bodies. No acute visible fracture or dislocation. Bilateral sacroiliac joints are patent. Tiny periarticular osteophyte along the inferior margin of the left pubic symphysis very mild multilevel degenerative changes with osteophyte formation and slight lower lumbar spine facet arthropathy. Vertebral body heights and disc spaces are otherwise maintained. Posterior elements are intact. Paraspinal soft tissues are unremarkable. Visualized bowel gas is unremarkable. Visualized portions of the chest are unremarkable. T-shaped IUD in the pelvis. XR/XR lumbar spine 2-3V IMPRESSION: 1. No acute visible fracture or dislocation. 2. Very mild multilevel degenerative changes of the thoracolumbar and lumbosacral spine. 3. T-shaped IUD in the pelvis.
--- NOTE | ~2023-04-20 | XR_ITS ---
EXAMINATION: XR THORACIC SPINE, 3 VIEWS XR LUMBAR SPINE, 3 VIEWS XR SACRUM AND COCCYX, 3 VIEWS CLINICAL INFORMATION: Fall, pain COMPARISON: None available. TECHNIQUE: 3 views of the thoracic spine 3 views of the lumbar spine 3 views of the sacrum and coccyx FINDINGS: 5 nonrib-bearing lumbar-type vertebral bodies. No acute visible fracture or dislocation. Bilateral sacroiliac joints are patent. Tiny periarticular osteophyte along the inferior margin of the left pubic symphysis very mild multilevel degenerative changes with osteophyte formation and slight lower lumbar spine facet arthropathy. Vertebral body heights and disc spaces are otherwise maintained. Posterior elements are intact. Paraspinal soft tissues are unremarkable. Visualized bowel gas is unremarkable. Visualized portions of the chest are unremarkable. T-shaped IUD in the pelvis. XR/XR sacrum coccyx min 2V IMPRESSION: 1. No acute visible fracture or dislocation. 2. Very mild multilevel degenerative changes of the thoracolumbar and lumbosacral spine. 3. T-shaped IUD in the pelvis.
--- NOTE | ~2023-04-20 | XR_ITS ---
EXAMINATION: XR THORACIC SPINE, 3 VIEWS XR LUMBAR SPINE, 3 VIEWS XR SACRUM AND COCCYX, 3 VIEWS CLINICAL INFORMATION: Fall, pain COMPARISON: None available. TECHNIQUE: 3 views of the thoracic spine 3 views of the lumbar spine 3 views of the sacrum and coccyx FINDINGS: 5 nonrib-bearing lumbar-type vertebral bodies. No acute visible fracture or dislocation. Bilateral sacroiliac joints are patent. Tiny periarticular osteophyte along the inferior margin of the left pubic symphysis very mild multilevel degenerative changes with osteophyte formation and slight lower lumbar spine facet arthropathy. Vertebral body heights and disc spaces are otherwise maintained. Posterior elements are intact. Paraspinal soft tissues are unremarkable. Visualized bowel gas is unremarkable. Visualized portions of the chest are unremarkable. T-shaped IUD in the pelvis. XR/XR thoracic spine 3V IMPRESSION: 1. No acute visible fracture or dislocation. 2. Very mild multilevel degenerative changes of the thoracolumbar and lumbosacral spine. 3. T-shaped IUD in the pelvis.
[2023-04-20 09:27] VITALS: BP 156/92; PULSE 80; RESP 18; TEMP 36.8; O2SAT 98; BMI 43.0
--- NOTE | 2023-04-20 10:27 | ED_ITS ---
HPI - General Adult General Chief complaint: Back Pain/Injury Stated complaint: Fall Injury Time Seen by Provider: 04/20/23 09:52 Source: patient Mode of arrival: ambulatory Limitations: no limitations History of Present Illness HPI narrative: Patient is a 32-year-old female with history of GERD, migraines, anxiety and depression presenting to the emergency department with complaint of back pain after a fall from a bar stool Friday night around midnight. Patient reports that she fell primarily onto her tailbone. She denies hitting her head, denies loss of consciousness. Denies headaches or changes in vision. Denies dizziness or lightheadedness. Reports pain to mid upper back but states most severe pain is to lumbar/sacral area. She has used ice and taken ibuprofen for her discomfort. She denies any weakness, numbness, or tingling to any of her extremities. She denies any radiation of pain to her extremities. She denies any saddle anesthesia or bowel or bladder incontinence. MD complaint: back pain Onset (ago): day(s) Location: back Radiation: non-radiation Severity: severe Quality: sharp Pain Consistency: constant Relieving factors: cold therapy and rest Exacerbating factors: movement Associated symptoms: denies other symptoms Treatments prior to arrival: NSAID and cold therapy Related Data Home Medications Medication Instructions Recorded Confirmed dicyclomine 20 mg tablet 1 tab PO DIRECTED 04/10/22 06/28/22 fluoxetine 20 mg capsule 60 mg PO DAILY 04/10/22 06/28/22 fluticasone propionate 50 1 spray intranasal DAILY 04/10/22 06/28/22 mcg/actuation nasal spray,suspension olanzapine 2.5 mg tablet 1 tab PO DAILY 04/10/22 06/28/22 omeprazole 40 mg capsule,delayed 1 cap PO DAILY 04/10/22 06/28/22 release topiramate 25 mg tablet 1 tab PO DAILY 04/10/22 06/28/22 mesalamine 500 mg capsule,extended 1,000 mg PO TID 06/28/22 06/28/22 release (Pentasa) olanzapine 2.5 mg tablet 2.5 mg PO BEDTIME 06/28/22 06/28/22 Previous Rx's Medication Instructions Recorded cholecalciferol (vitamin D3) 125 125 mcg PO DAILY #30 caps 07/01/22 mcg (5,000 unit) capsule mecobalamin (vitamin B12) 1,000 1,000 mcg sublingual DAILY #30 tabs 07/01/22 mcg disintegrating tablet,sublingual blood pressure test kit-large #1 ea 10/17/22 ([employer] Blood Pressure Monitor kit) phentermine 37.5 mg capsule 37.5 mg PO DAILY #14 caps 10/17/22 cyclobenzaprine 5 mg tablet 5 mg PO TID PRN muscle spasm #12 04/20/23 tabs lidocaine 5 % topical patch 1 patch topical DAILY #15 ea 04/20/23 Allergies Allergy/AdvReac Type Severity Reaction Status Date / Time sumatriptan [From IMITREX] Allergy Severe THROAT Verified 04/20/23 09:27 SWELLING metoclopramide [From REGLAN] Allergy Intermediate HEART RACES Verified 04/20/23 09:27 Review of Systems Review of Systems: As per HPI. Yes all other systems are reviewed and are negative Constitutional: Constitutional: Reports as per HPI [facility] Past Medical History Medical History Anxiety Back pain Depression Elevated cholesterol GERD (gastroesophageal reflux disease) Migraine headache Morbid obesity Panic attacks Polycystic ovaries Surgical History History of surgery on wrist Family History Family History Mother Kidney disease Father No problems noted. Brother No problems noted. Daughter No problems noted. Social History Social History Alcohol intake: current Alcohol intake frequency: holidays/special occasions only Patient Tobacco Use Status: Current everyday Tobacco user Cigarettes Per Day: 4 Substance Use Type: Marijuana Advance Directives: No Advance Directives Information Provided: No Physical Exam ED Vital Signs: Vital Signs - 24 hr 04/20/23 09:27 Temperature 98.2 F Pulse Rate 80 Respiratory Rate 18 Blood Pressure 156/92 H Pulse Oximetry 98 Oxygen Delivery Method Room Air BMI result Body Mass Index 43.0 Vital signs have been reviewed and appear to be correct. Blood pressure elevated. Heart rate normal. Respiratory rate normal. Temperature normal. Oxygen saturation normal. Const General: cooperative, healthy appearing and no acute distress Orientation/consciousness: oriented to person, oriented to place, oriented to time and patient oriented x3 Limitations: no limitations [facility] Head: Yes normocephalic and Yes atraumatic Ears: external ears normal General nose exam: Normal external nose present Face and sinus: Yes face symmetric Mouth: oropharynx normal and moist mucous membranes Throat: Yes uvula midline Eyes Pupils: Equal, round and reactive pupils present Neck Neck: Yes normal visual inspection and Yes supple Resp Effort & Inspection: normal respiratory effort and able to speak in complete sentences Auscultation: clear to auscultation bilaterally Cardio Rate: regular rate Rhythm: regular rhythm Heart sounds: S1 normal heart sound present and S2 normal heart sound present GI Palpation (GI): Soft to palpation and nontender Auscultation: normoactive bowel sounds General: Yes no CVA tenderness Back/Spine/Pelvis Back: no CVA tenderness Cervical Spine: normal cervical lordosis, cervical ROM normal, No Cervical spine tenderness and No step off deformity Thoracic/Lumbar Spine: thoracic and lumbar spine normal to inspection, thoraco- lumbar ROM normal, pain with thoraco-lumbar ROM, paraspinal muscle tenderness bilaterally in the lower thoracic, in the upper lumbar and in the lower lumbar, thoracic spinal tenderness at T3, at T4 and at T12, lumbar spinal tenderness at L1, at L4 and at L5 and straight leg raise positive Pelvis: pain with anterior-posterior compression and no pain with lateral compression Sacrum: tenderness midline Skin General skin exam: elasticity normal and turgor normal Neuro General: oriented to person, oriented to place, oriented to time, patient oriented x3, moves all extremities, no focal motor deficits and CN's II-XI intact bilaterally Cranial nerves: Yes Equal, round and reactive pupils present Cognition (Neuro): normal cognition Extrem General: Yes full ROM, Yes no pedal edema and Yes no calf tenderness Psych Mental Status: mental status grossly normal Affect: normal affect Thought process: Normal thought process present Medications Administered Discontinued Medications Generic Name Dose Route Start Last Admin Trade Name Freq PRN Reason Stop Dose Admin Acetaminophen 975 mg 04/20/23 11:00 04/20/23 11:10 Acetaminophen 325 Mg Tablet PO 04/20/23 11:01 975 mg ONCE ONE Administration Ondansetron HCl 4 mg 04/20/23 11:00 04/20/23 11:11 Ondansetron Odt 4 Mg Tab.Rapdis TRANSLINGU 04/20/23 11:01 4 mg ONCE ONE Administration Medical Decision Making Medical Decision Making MDM Narrative: Patient is a 32-year-old female with history of GERD, migraines, anxiety and depression presenting to the emergency department with complaint of back pain after a fall from a bar stool Friday night around midnight. On exam patient is awake, A+Ox3, VS WNL, afebrile, normal neurological exam without focal deficits, midline spinal tenderness noted in area of T3/4, T12/L1, L4/5/S1, no midline cervical tenderness, stepoffs or deformities, no rib tenderness bilaterally. Given reported symptoms and physical exam findings, initial differential includes vertebral fracture, contusion, muscle strain. No red flag findings concerning for cauda equina, cord compression, or spinal epidural abscess. Will obtain thoracic, lumbar, and sacral x-rays. Patient provided with ice packs. No acute visible fracture or dislocation on x-rays, multilevel degenerative changes noted. Patient updated on results and all questions answered. Will prescribe cyclobenzaprine for spasms, this patient to apply ice several times daily, alternate Tylenol and ibuprofen. Instructed patient to follow-up with primary care provider. Return precautions discussed at bedside. Patient verbalized understanding of and agreement with plan. Differential Diagnosis Differential Diagnoses: The differential diagnosis associated with the presentation includes As per MDM. Independent Interpretation I performed an independent interpretation of an: Plain X-Ray Interpretation: No acute fracture or dislocation of thoracic spine, lumbar spine, sacrum and coccyx Radiology Impression Discussion of test interpretation with radiology: I have reviewed the radiologist's reading. Radiologist Impression: XR/XR thoracic spine 3V IMPRESSION: 1.? No acute visible fracture or dislocation. 2.? Very mild multilevel degenerative changes of the thoracolumbar and lumbosacral spine. 3.? T-shaped IUD in the pelvis. ? External Record Review External record reviewed: Inpatient record, Office record and Outpatient record Prescription Management I considered prescription management with: Pain Medication Discharge Plan Discharge Clinical Impression: Lumbar contusion, Sacral contusion Patient Disposition: Home, Self-Care Instructions: Contusion in Adults (ED) Additional Instructions: You were evaluated in the emergency department today for back pain. Your evaluation did not show signs of medical conditions requiring emergent intervention at this time. We recommended that you use ibuprofen or Tylenol per package directions every 6 hours as needed for pain. If necessary, you can alternate these medications so that you take one medication every 3 hours. For instance, at noon take ibuprofen, then at 3:00 p.m. take Tylenol, then at 6:00 p.m. take ibuprofen. You have been prescribed a muscle relaxer which you may take every 8 hours as needed for spasms. You have been prescribed 5% topical lidocaine patches which you can wear for up to 12 hours in a 24 hour period. Do not apply heat directly over the patches. Please schedule an appointment for follow-up with your primary care physician this week for further evaluation of your symptoms. Return to the emergency department if you experience worsening back pain, difficulty walking, fevers, numbness, tingling, incontinence, groin numbness or tingling, or any other concerning symptoms. Prescriptions: New cyclobenzaprine 5 mg tablet 5 mg PO TID PRN (Reason: muscle spasm) Qty: 12 0RF lidocaine 5 % adhesive patch,medicated 1 patch topical DAILY Qty: 15 0RF Rx Instructions: leave on most painful area for up to 12 hrs No Action cholecalciferol (vitamin D3) 125 mcg (5,000 unit) capsule 125 mcg PO DAILY Qty: 30 2RF mecobalamin (vitamin B12) 1,000 mcg tablet,disintegrating 1,000 mcg sublingual DAILY Qty: 30 2RF Rx Instructions: place tablet under tongue and allow to dissolve for at least30 secs before swallowing phentermine 37.5 mg capsule 37.5 mg PO DAILY Qty: 14 0RF Rx Instructions: must administer 30 minutes before or 1-2 hours after breakfast (DME) blood pressure test kit-large [[employer] BP Monitor] Kit See Rx Instructions .ROUTE .MEDSUPPLY Qty: 1 0RF Rx Instructions: As directed topiramate 25 mg tablet 1 tab PO DAILY olanzapine 2.5 mg tablet 1 tab PO DAILY omeprazole 40 mg capsule,delayed release(DR/EC) 1 cap PO DAILY dicyclomine 20 mg tablet 1 tab PO DIRECTED fluoxetine 20 mg capsule 60 mg PO DAILY fluticasone propionate 50 mcg/actuation spray,suspension 1 spray INTRANASAL DAILY olanzapine 2.5 mg tablet 2.5 mg PO BEDTIME mesalamine [Pentasa] 500 mg capsule, extended release 1,000 mg PO TID Stand Alone Forms: Work/School Release
[2023-04-20] MEDS: Acetaminophen 325 MG TABLET 975 MG PO (11:10)
[2023-04-20] MEDS: Ondansetron ODT 4 MG TAB.RAPDIS TRANSLINGU (11:11)
== END 2023-04-20 12:35 | disposition home or self-care (01) ==
PROVIDERS: Emergency Provider Emergency Medicine; PCP Internal Medicine
DX: S30.0XXA Contusion of lower back and pelvis, initial encounter (principal); M54.6 Pain in thoracic spine; M54.50 Low back pain, unspecified; W07.XXXA Fall from chair, initial encounter; Y93.9 Activity, unspecified; Y92.9 Unspecified place or not applicable; Y99.9 Unspecified external cause status
CPT/HCPCS: 72072; 72100; 72220; 99284

== ENCOUNTER → 2023-06-06 07:52 | Outpatient (BNVA) | payer OTHER, SELFPAY | PROVIDERS: PCP Internal Medicine; Visit Provider Surgery ==

== ENCOUNTER 2023-07-31 16:00 | Outpatient (AMB) | payer OTHER, SELFPAY ==
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
== END 2023-07-31 17:00 | disposition home or self-care (01) ==
LOC: HO.HBST 08-04 08:59
PROVIDERS: PCP Internal Medicine; Visit Provider Counselor Mental Health
DX: F33.1 Major depressive disorder, recurrent, moderate (principal); F41.1 Generalized anxiety disorder; E66.01 Morbid (severe) obesity due to excess calories
CPT/HCPCS: 90832

== ENCOUNTER → 2023-07-31 16:00 | Outpatient (BNVA) | payer OTHER, SELFPAY | PROVIDERS: PCP Internal Medicine; Visit Provider Counselor Mental Health ==

== ENCOUNTER 2023-08-15 08:40 | Outpatient (AMB) | payer OTHER, SELFPAY ==
[2023-08-14 19:32] VITALS: BMI 42.1
--- NOTE | 2023-08-14 19:32 | A.OFFVIS_ITS ---
Intake VS Expanded 08/14/23 19:32 Height 5 ft 2 in Weight 230 lb 6 oz BMI 42.1 Body Fat % 52.8 Body Fat Mass 121.7 Fat Free Mass 109 Visceral Fat Rating 22 Body Water % 32.42 Body Water Mass 74.7 Basal Metabolic Rate/Score 1,436 Intake Visit Reasons: TV Pre Op LSG 08/28/23 Allergies sumatriptan [From IMITREX] Allergy (Severe, Verified 08/14/23 19:40) THROAT SWELLING metoclopramide [From REGLAN] Allergy (Intermediate, Verified 08/14/23 19:40) HEART RACES Medication List - Last Reconciled 08/15/23 by Fitz Mukherjee MD blood pressure test kit-large ([employer] [facility] Blood Pressure Monitor kit) As directed cholecalciferol (vitamin D3) 125 mcg PO DAILY dicyclomine 1 tab PO DIRECTED fluoxetine 60 mg PO DAILY fluticasone propionate 50 mcg/actuation 1 spray intranasal DAILY lidocaine 5% 1 patch topical DAILY mecobalamin (vitamin B12) 1,000 mcg sublingual DAILY omeprazole 1 cap PO DAILY ondansetron 4 mg PO Q12H pantoprazole 40 mg PO DAILY polyethylene glycol 3350 (Miralax) 17 grams PO DAILY sucralfate 10 mL PO BID topiramate 1 tab PO DAILY HPI TV Pre Op LSG 08/28/23 HPI Details Start time: 8.15am, End time: 8.30am. An additional 15 minutes were used at a different part of the day to complete this note and review patient's records. ?I spent 15 minutes speaking with the patient on the phone plus an additional 15 minutes reviewing and updating records for a total of 30 minutes HPI Comments History of Present Illness Details Is doing 2 Orgain shakes with one scoop each in almond milk, 2 Zone Perfect protein bars and one meal (8 forks of protein and 8 forks of salad) Exercise: stationary bike [facility] Medical History Anxiety Back pain Depression Elevated cholesterol GERD (gastroesophageal reflux disease) Migraine headache Morbid obesity Panic attacks Polycystic ovaries Surgical History History of surgery on wrist Family History Mother Kidney disease Father No problems noted. Brother No problems noted. Daughter No problems noted. Social History Alcohol intake: current Alcohol intake frequency: a few times a month Patient Tobacco Use Status: Current everyday Tobacco user Cigarettes Per Day: 4 Substance Use Type: Marijuana Physical Exam Vital Signs: BMI result Body Mass Index 42.1 Assessment & Plan Assessment & Plan (1) Morbid obesity: Code(s): E66.01 - Morbid (severe) obesity due to excess calories Plan: 1. Plan for lap sleeve gastrectomy including upper GI endoscopy. All tests has been completed and reviewed and the patient is cleared for the surgery. ?If diaphragmatic or ventral hernias are present at time of surgery, these will be repaired laparoscopically as well. 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 I emphasized the importance of close follow-up, adherence to instructions and good communication. So far she has proven to be an excellent communicator and very compliant with all our directions accomplishing a great weight loss. I believe that she is an excellent candidate and she is ready. 2. Preop prescriptions were provided and explained the purpose of each one. Need to be purchased preop. Start Pantoprazole now as you get it from the pharmacy, 1 pill per day. Sucralfate and Zofran are for after surgery as needed. 3. Bowel prep: please do 7 packets ?of Miralax mixing each one with a an 8oz glass of water, crystal light, gatorade zero, or propel ?on 08/26/23 and the same amount on 08/27/23. Continue the protein shakes during? the bowel prep. 4. Needs to purchase 1oz medicine cups . 5. Needs to purchase Children's liquid Tylenol for postop pain control. 6. She needs to stop the Cyclobenzaprine and Pentasa as of 08/21/23. Avoid aspirin, motrin, Advil, Aleve, Ibuprofen, Naproxyn. Tylenol is OK. 7. She needs to purchase the Celebrate 4:1 protein shakes from the hospital's gift shop. 8. Will do basic preop blood work-up any day between Friday08/19/23 and Friday08/22/23 fasting for 12 hours and is scheduled to see the Anesthesiologist prior to the day of surgery. 9. Importance of adherence to postop folllow-up and recommendations was underscored and she understands that. 10. Stop food and bars as of Friday08/19/23 and continue with 3 Orgain protein shakes (ONE scoop EACH in 8oz almond milk) at 7am-9am, 10am-12pm and 1pm-3pm and TWO more Orgain protein shake with TWO scoops EACH in 8oz of almond milk at 4pm- 6pm and 7pm-9pm 11. No soups, broths or V8 12. The patient's?medical?history has been reviewed and they are considered low risk for post op DVT and therefore DVT prophylaxis is not considered necessary. Travel after surgery was reviewed. The patient has not disclosed any travel plans during the first 30 days after surgery and they have been advised that within the first 30 days after surgery any bus, plane, train or car travel over 2 hours in duration is contraindicated due to the possibility of developing blood clots from immobility. Any travel, needs to include periods of ambulation of 10 minutes in duration every 2 hours.? Patient was instructed to discuss any plans for travel during this period with their bariatric surgeon.? 13. Please take at the day of surgery the following medications: NONE 14. Stop any control pills and don't use them for one month after surgery 15. Absolutely no smoking or vaping, or marijuana until the surgery and for at least the first 4 weeks. Only nicotine patches are allowed. 16. Send me weight measurements on Thursday 08/16 and 08/23 and then on 08/28/23, the day of surgery before you go to the hospital. 17. Avoid any steroids by mouth for any reason. Let me know if someone prescribes them to you Orders: Orders Hemoglobin A1c Today E66.01 - Morbid (severe) obesity due to excess calories Prothrombin Time INR Today E66.01 - Morbid (severe) obesity due to excess calor ies Type and Screen Today E66.01 - Morbid (severe) obesity due to excess calories Lipid Panel Today E66.01 - Morbid (severe) obesity due to excess calories Complete Blood Count Auto Diff Today E66.01 - Morbid (severe) obesity due to excess calories Insulin Today E66.01 - Morbid (severe) obesity due to excess calories TSH reflex Free T4 Today E66.01 - Morbid (severe) obesity due to excess calories Comprehensive Met. Panel Today E66.01 - Morbid (severe) obesity due to excess calories C Reactive Protein Today E66.01 - Morbid (severe) obesity due to excess calories Partial Thromboplastin Time Today E66.01 - Morbid (severe) obesity due to excess calories Medications: New polyethylene glycol 3350 (Miralax) Mix each packet with 8oz of water, Crystal light, or Gatorade zero, or Propel and do 7 packets on 08/26/23 and another 7 packets on 08/27/23 17 grams PO DAILY 14 ea 0RF Z01.818 - Encounter for other preprocedural examination pantoprazole 90-day supply 40 mg PO DAILY 90 tabs 0RF K21.9 - Gastro-esophageal reflux disease without esophagitis sucralfate 10 mL PO BID 600 mL 2RF K21.9 - Gastro-esophageal reflux disease without esophagitis ondansetron Only take one every 12 hours as needed if you have nausea 4 mg PO Q12H 20 tabs 0RF nausea and vomiting R11.0 - Nausea Telehealth Telehealth Location of provider rendering services: practice address Location of patient: address on file Patient Identification confirmed using: Name, : Yes Telehealth method: voice only Patient verbally consented to treatment: Yes Patient verbally consented to billing insurance company: Yes Patient informed of any privacy concerns related to visit: Yes Minutes spent on Phone/Video with Pt.: 30 Coding Level of Care Code Tele Est Pt Level 4 (65359) Diagnoses Morbid obesity E66.01 Time Spent (min) 30
== END 2023-08-15 08:50 | disposition home or self-care (01) ==
LOC: HO.HBS 08:40
PROVIDERS: PCP Internal Medicine; Visit Provider Surgery
DX: E66.01 Morbid (severe) obesity due to excess calories (principal)
CPT/HCPCS: 99214

== ENCOUNTER → 2023-08-15 08:40 | Outpatient (BNVA) | payer OTHER, SELFPAY | PROVIDERS: PCP Internal Medicine; Visit Provider Surgery | DX: E66.01 Morbid (severe) obesity due to excess calories (principal); K21.9 Gastro-esophageal reflux disease without esophagitis; R11.0 Nausea; Z01.818 Encounter for other preprocedural examination ==

== ENCOUNTER 2023-08-28 07:53 | Inpatient (IN) | payer OTHER, SELFPAY ==
[2023-08-15 08:11] LABS: MANUAL DIFF FLAG NO
[2023-08-15 08:18] LABS: Basophils Percent Auto 0.3 % (0-2); Eosinophils Absolute Auto 0.4 X10*3/uL (0.0-0.4); Eosinophils Percent Auto 3.6 % (0-4); Hematocrit 41.4 % (37.0-47.0); Hemoglobin 14.1 g/dl (12.0-16.0); Imm Gran Abs Auto 0.03 X10*3/uL (0.00-0.03); Imm Gran Pct Auto 0.3 % (0.0-0.4); Lymphocytes Absolute Auto 3.5 X10*3/uL (1.2-4.9); Lymphocytes Percent Auto 36.2 % (20-40); Mean Corpuscular HGB Conc 34.1 g/dl (31.0-35.0); Mean Corpuscular Hemoglobin 31.2 pg (27.0-33.0); Mean Corpuscular Volume 91.6 fL (80.0-98.0); Mean Platelet Volume 10.1 fL (9.4-12.3); Monocytes Absolute Auto 0.6 X10*3/uL (0.1-1.2); Monocytes Percent Auto 5.8 % (2-11); Neutrophils Absolute Auto 5.2 x10*3/uL (2.0-8.3); Neutrophils Percent Auto 53.8 % (45-73); Platelet Count 365 X10*3/uL (160-400); Red Blood Count 4.52 X10*6/uL (4.20-5.50); Red Cell Distribution Width 12.8 % (11.0-16.0); White Blood Count 9.7 X10*3/uL (4.8-10.8)
[2023-08-15 08:22] LABS: INTERNATIONAL NORM RATIO 0.9 (0.9-1.1); Prothrombin Time 10.7 SEC (11.1-13.3)
[2023-08-15 08:24] LABS: Partial Thromboplastin Time 33.5 SEC (26.0-36.4)
[2023-08-15 08:27] LABS: Estimated Average Glucose 91 mg/dL; Hemoglobin A1c % 4.8 % (<6.0)
[2023-08-15 08:54] LABS: Alanine Aminotransferase 15 U/L (0-31); Albumin Level 4.2 g/dL (3.5-5.0); Alkaline Phosphatase 94 U/L (39-117); Anion Gap 10 (12-20); Aspartate Amino Transferase 17 U/L (5-31); Bilirubin Total 0.4 mg/dL (0.0-1.0); Blood Urea Nitrogen 9 mg/dL (9-16); C Reactive Protein 0.52 mg/dL (< or = 0.50); Calcium 9.4 mg/dL (8.4-10.2); Carbon Dioxide 25 mmol/L (22-29); Chloride 108 mmol/L (96-108); Cholesterol 225 mg/dL (<200); Estimated Glomerular Filt Rate > 60; Glucose Random 94 mg/dL (60-115); HDL Cholesterol 40 mg/dL (>40); Iron 109 mcg/dL (30-160); LDL Cholesterol Calculated 152 mg/dL (<100); Percent Iron Saturation 41 % (15-50); Potassium 4.1 mmol/L (3.3-5.1); Sodium 139 mmol/L (135-145); Total Iron Binding Capacity 264 mcg/dL (228-428); Total Protein 7.3 g/dL (6.5-8.0); Triglycerides 168 mg/dL (<150); Unsaturated Iron Binding 155 ug/dL
[2023-08-15 09:13] LABS: Ferritin 71 ng/mL (10-122); Insulin 13 uU/mL (2-29); Vitamin D 25-OH Total 16.3 ng/mL (>30)
[2023-08-15 09:16] LABS: Folate 11.6 ng/mL (> or = 4.0); Vitamin B12 452 pg/mL (200-900)
[2023-08-20 16:49] LABS: Zinc 71 mcg/dL (60-130)
[2023-08-20 20:54] LABS: Vitamin B1 11 nmol/L (8-30)
[2023-08-21 00:49] LABS: Vitamin A 44 mcg/dL (38-98)
[2023-08-21 11:06] VITALS: BMI 41.7
--- NOTE | 2023-08-23 00:56 | MHC.SHP ---
Pre-Procedural Eval Section A Date of Service: 08/23/23 The patient is an INPATIENT: Yes The History & Physical has been completed within 30 days and I have reviewed it.: Yes Section B Chief Complaint: Morbid (severe) obesity due to excess calories Relevant Family History (Specify if Yes): No Present Medications: None Medical History: No relevant PMH History of Previous Operations: No relevant previous surgery Allergies: Allergies Allergy/AdvReac Type Severity Reaction Status Date / Time sumatriptan [From IMITREX] Allergy Severe THROAT Verified 08/14/23 19:40 SWELLING metoclopramide [From REGLAN] Allergy Intermediate HEART RACES Verified 08/14/23 19:40 Review of Systems Sugical H&P ROS: Negative: Constitution, Cardiovascular, Respiratory, Neurological, Psychiatric, Hem-Onc, Allergic/Immunologic, Gastrointestinal, Genitourinary, Musculoskeletal, Integumentary, Endocrine and Eyes/Ears/Nose/Throat Exam Surgical H&P Exam: Normal: HEENT, Normal: Heart, Normal: Lungs, Normal: Extremities, Normal: Abdomen, Normal: Skin and Normal: Neurological Plan Diagnosis/Plan: Unchanged I have reviewed the history and physical and performed a pertinent physical examination on my patient. No changes have occurred unless specified. Time Spent With Patient Time: Total time managing care of this patient today ____ minutes.
--- NOTE | 2023-08-27 08:30 | HO.ANESPROP2 ---
Documented by User: Krystina Montoya NP 08/27/23 08:31 HPI - Anesthesia Eval Consult details Narrative: 32yo F for Gastrectomy Sleeve-EGD, possible diaphragmatic hernia, possible ventral hernia, possible open PMFSH Active Problems Active Problems: All Active Problems (Updated 08/21/23 @ 11:05 by Edie Major RN) Generalized anxiety disorder (Acute) Major depressive disorder, recurrent, moderate (Acute) BMI 39.0-39.9,adult (Acute) Obesity (Acute) Vitamin B12 deficiency (Acute) Vitamin D deficiency (Acute) Back pain (Acute) Migraine headache (Acute) Elevated cholesterol (Acute) Anxiety (Acute) Depression (Acute) GERD (gastroesophageal reflux disease) (Acute) Morbid obesity (Acute) Past Medical History Medical History Back pain Morbid obesity GERD (gastroesophageal reflux disease) Migraine headache Panic attacks Elevated cholesterol Depression Anxiety Family History Family History Mother Kidney disease Father No problems noted. Brother No problems noted. Daughter No problems noted. Family history of problems with anesthesia: No Surgical History Surgical History History of surgery on wrist History of Problems with Anesthesia: No Social History Social History Are you a primary cardiac care unit nurse to a significant other at home: Yes Do you presently have visiting nurse or other home services: No Alcohol intake: current Alcohol intake frequency: does not drink Patient Tobacco Use Status: Never used Tobacco Cigarettes Per Day: 4 Use of substances other than those prescribed or required for medical reasons: No Substance Use Type: Marijuana Have you been hit, kicked, punched, or otherwise hurt by someone within the past year? If so, by whom?: No Advance Directives: No Advance Directives Information Provided: No Advance Directives on File: No Recently lost weight without trying: No Eating poorly because of decreased appetite: No Nutrition Risks: No Nutritional Risk Patient : No : No Poor oral hygiene: No Meds Allergies Allergy/AdvReac Type Severity Reaction Status Date / Time sumatriptan [From IMITREX] Allergy Severe THROAT Verified 08/28/23 08:04 SWELLING metoclopramide [From REGLAN] Allergy Intermediate HEART RACES Verified 08/28/23 08:04 Home Medications Medication Instructions Recorded Confirmed Last Taken Type fluoxetine 20 mg capsule 60 mg PO DAILY 04/10/22 08/28/23 08/25/23 History omeprazole 40 mg capsule,delayed 1 cap PO DAILY 04/10/22 08/28/23 08/25/23 History release pantoprazole 40 mg tablet,delayed 40 mg PO DAILY@0630 08/28/23 08/28/23 Unknown History release Exam Height,Weight and Vital Signs: Height 5 ft 2 in Weight 103.419 kg Pertinent Lab Results Pertinent Lab Results: Laboratory Tests 08/15/23 08/15/23 07:55 08:08 WBC 9.7 RBC 4.52 Hgb 14.1 Hct 41.4 MCV 91.6 MCH 31.2 MCHC 34.1 RDW 12.8 Plt Count 365 MPV 10.1 Immature Gran % (Auto) 0.3 Neut % (Auto) 53.8 Lymph % (Auto) 36.2 [place] % (Auto) 5.8 Eos % (Auto) 3.6 Baso % (Auto) 0.3 Lymph # (Auto) 3.5 [place] # (Auto) 0.6 Eos # (Auto) 0.4 Baso # (Auto) 0.0 Abs Immat Gran (auto) 0.03 Absolute Neuts (auto) 5.2 Absolute Nucleated RBC 0.000 Nucleated RBC % (auto) 0.0 PT 10.7 L INR 0.9 APTT 33.5 Sodium 139 Potassium 4.1 Chloride 108 Carbon Dioxide 25 Anion Gap 10 L BUN 9 Creatinine 0.81 Estim Creat Clear Calc TNP Estimated GFR > 60 Random Glucose 94 Estimat Average Glucose 91 Hemoglobin A1c % 4.8 Insulin Level 13 Calcium 9.4 Iron 109 TIBC 264 % Saturation 41 Unsat Iron Binding 155 Ferritin 71 Total Bilirubin 0.4 AST 17 ALT 15 Alkaline Phosphatase 94 C-Reactive Protein 0.52 H Total Protein 7.3 Albumin 4.2 Triglycerides 168 H Cholesterol 225 H LDL Cholesterol, Calc 152 H HDL Cholesterol 40 L Vitamin A 44 Vitamin B1 11 Vitamin B12 452 25-OH Vitamin D Total 16.3 L Folate 11.6 TSH 0.90 Zinc 71 Blood Type O Positive Antibody Screen NEGATIVE Narrative Narrative: EKG 2021 Vent. Rate : 062 BPM Atrial Rate : 062 BPM P-R Int : 138 ms QRS Dur : 100 ms QT Int : 416 ms P-R-T Axes : -11 041 028 degrees QTc Int : 422 ms Normal sinus rhythm Normal ECG When compared with ECG of 11-JAN-2022 10:24, No significant change was found Assessment and Plan Assessment Anesthesia Assessment: Chart Reviewed Final Anesthetic Review Family History of Problems with Anesthesia: No History of Problems with Anesthesia: No Documented by User: Danial Maravilla MD 08/28/23 10:41 PMFSH Past Medical History Medical History Back pain Morbid obesity GERD (gastroesophageal reflux disease) Migraine headache Panic attacks Elevated cholesterol Depression Anxiety Family History Family History Mother Kidney disease Father No problems noted. Brother No problems noted. Daughter No problems noted. Surgical History Surgical History History of surgery on wrist Social History Social History Are you a primary cardiac care unit nurse to a significant other at home: Yes Do you presently have visiting nurse or other home services: No Alcohol intake: current Alcohol intake frequency: does not drink Patient Tobacco Use Status: Never used Tobacco Cigarettes Per Day: 4 Use of substances other than those prescribed or required for medical reasons: No Substance Use Type: Marijuana Have you been hit, kicked, punched, or otherwise hurt by someone within the past year? If so, by whom?: No Advance Directives: No Advance Directives Information Provided: No Advance Directives on File: No Recently lost weight without trying: No Eating poorly because of decreased appetite: No Nutrition Risks: No Nutritional Risk Patient : No : No Poor oral hygiene: No Meds Allergies Allergy/AdvReac Type Severity Reaction Status Date / Time sumatriptan [From IMITREX] Allergy Severe THROAT Verified 08/28/23 08:04 SWELLING metoclopramide [From REGLAN] Allergy Intermediate HEART RACES Verified 08/28/23 08:04 Home Medications Medication Instructions Recorded Confirmed Last Taken Type fluoxetine 20 mg capsule 60 mg PO DAILY 04/10/22 08/28/23 08/25/23 History omeprazole 40 mg capsule,delayed 1 cap PO DAILY 04/10/22 08/28/23 08/25/23 History release pantoprazole 40 mg tablet,delayed 40 mg PO DAILY@0630 08/28/23 08/28/23 Unknown History release Exam Airway Mallampati Class: III TM Dist: >3cm Neck ROM: Full Loose/Missing/Broken Teeth: No Heart: [id number]+[id number] Lungs: cta b/l Assessment and Plan Assessment Anesthesia Assessment: Anesthesia Plan Discussed Final Anesthetic Review NPO: Yes ASA Class: III Final Preanesthetic Review: No Changes in Pt Med Stat, Meds/Allgs Chart Reviewed, Consent Obtained/Reviewed and Anes Risks/Benef Reviewed Patient Risk: Intermediate Procedure Risk: Intermediate Assessment/Block/Sedation in SS: Assess/Block/Sedation-SS Anesthetic Plan Anesthetic Plan: GA and Agree w/ Assess. and Plan Disposition: Standard PACU
[2023-08-28] VITALS (15 sets, daily range): BP systolic 146–173; BP diastolic 82–102; PULSE 65–91; RESP 16–18; TEMP 36–36.6; O2SAT 96–99; BMI 41.9
--- NOTE | ~2023-08-28 | XR_ITS ---
EXAMINATION: XR CHEST CLINICAL INFORMATION: Leukocytosis COMPARISON: None available. TECHNIQUE: 2 views of the chest were obtained. FINDINGS: No significant abnormality is noted involving the heart, lungs, mediastinum, bony thorax or soft tissues. XR/XR chest 2V IMPRESSION: Unremarkable chest examination.
--- NOTE | ~2023-08-28 | CT_ITS ---
EXAMINATION: CT ABDOMEN AND PELVIS WITH CONTRAST CLINICAL INFORMATION: Abdominal pain. Post surgery. COMPARISON: None available. TECHNIQUE: Multidetector volumetric images were obtained from the superior aspect of the liver through the pubic symphysis following administration 85 mL of Omnipaque 350 intravenous contrast. 90 cc of Gastrografin given orally. Images obtained 90 minutes after the administration of oral Gastrografin. Sagittal and coronal reformatted images were obtained on the technologist's workstation. This CT examination was performed using dose optimization techniques as appropriate, variously including the following: *Automated exposure control *Adjustment of mA and/or kV according to patient size (this includes techniques or standardized protocols for targeted exams where dose is matched to indication/reason for exam; i.e. extremities or head) *Use of iterative reconstruction technique DLP: 1264 mGy-cm FINDINGS: LUNG BASES: The visualized lung bases are unremarkable. LIVER, GALLBLADDER, AND BILIARY TREE: The liver is normal in size, shape, and attenuation. No focal hepatic lesion or biliary ductal dilatation is present. The gallbladder is unremarkable with no evidence of radiopaque gallstones, gallbladder wall thickening, or obvious pericholecystic inflammatory changes. PANCREAS: Unremarkable. SPLEEN: Unremarkable. ADRENAL GLANDS: Unremarkable. KIDNEYS AND URETERS: The kidneys are normal in size, shape, and attenuation. No hydronephrosis, hydroureter, or calculi seen. No perinephric stranding. BLADDER: Unremarkable. GASTROINTESTINAL TRACT: Status post gastric surgery. No acute abnormality. No bowel wall thickening or edema in the mesentery. No evidence of Gastrografin leak from the gastric surgical site. No dilated bowel loops. The small and large bowel loops are normal. The appendix is normal. MESENTERY: No free air. No inflammation. Trace fluid in the cul-de-sac. ABDOMINAL WALL: No significant hernia is appreciated. LYMPH NODES: Normal. VASCULAR: Normal enhancement of the vasculature. No evidence of SMV thrombosis. PELVIC VISCERA: IUD in endometrial cavity. No adnexal abnormality. OSSEOUS STRUCTURES: Unremarkable. CT/CT abdomen pelvis w IV con IMPRESSION: Status post gastric surgery. No acute abnormality of the abdomen or pelvis. Fleischner guidelines were followed.
--- NOTE | 2023-08-28 08:13 | PHA.MEDREC ---
Pharmacy Consult ? Medication Reconciliation Pharmacy has completed the medication reconciliation. Reviewed med rec done by nursing (Jil).
[2023-08-28 08:22] LABS: UPreg QC Valid YES; Urine Pregnancy NEGATIVE (NEGATIVE)
[2023-08-28] MEDS: Lactated Ringers 1,000 ML 100 ML IVCONT ×2 (08:33→15:36)
[2023-08-28] MEDS: Aprepitant 32 MG/4.4 ML VIAL IVPUSH (08:33)
--- NOTE | 2023-08-28 10:03 | P.BOP_ITS ---
Brief Operative Note Date of Service: 08/28/23 Pre-op diagnosis: Morbid obesity Post-op diagnosis: same Procedure: INITIAL PATIENT BMI ON PRESENTATION AT OUR OFFICE: 41.3 kg/m2 LAST BMI BEFORE SURGERY: 41 kg/m2 COMORBIDITIES:migraines, hyperlipidemia, GERD, depression, anxiety, back pain, liver fibrosis ?The patient presented to the Weight Management Program with significant obesity that was negatively impacting the patient's comorbidities as listed above.? The program is a phased program with a special focus on preoperative medical weight management to promote substantial weight loss and prepare the patients for the second phase of the program: bariatric surgery. The patient participated in an intensive weekly lifestyle ?intervention and exercise program during which the patient ?has lost between the initial office visit and the last preoperative visit 8lbs, or 3.44% of initial actual body weight. It was deemed appropriate for the patient to now have bariatric surgery. In light of the current Covid-19 pandemic and the well documented strong association of obesity and increased risk of worse outcomes if infected with Covid-19 (REFERENCES: https://pubmed.ncbi.nlm.nih.gov/86020467/ ,? http s://pubmed.ncbi.nlm.nih.gov/16919205/ ), any delay in undergoing bariatric surgery may lead to the patient's worsening health condition and increased?risk of more severe Covid-19 disease if infected. In addition a recent?study from [facility] published in [facility] on 08/13/2021 ([email or web address]) found that, among patients with obesity, substantial weight loss achieved with surgery was associated with improved outcomes of COVID-19 infection. The findings suggest that obesity can be a modifiable risk factor for the severity of COVID-19 infection. In addition, the patient met the BMI-criteria for bariatric surgery based on the BMI on initial presentation. The patient should not be penalized for achieving such weight loss because ?it is not sustainable long-term without surgical intervention and it was achieved in preparation for bariatric surgery ?under my direction and based on my published research ([email or web address]).[email or web address] and? https://www.soard.org/article/[email or web address](18)79355-X/pdf ) ?that a 10% preoperative weight loss improves long-term weight loss after surgery and reduces perioperative complications.? Insurance carriers such as [facility] have endorsed my recommendations ?and have included in their policies criteria to include a 10% preoperative weight loss requirement. PROCEDURE: Esophago-gastroscopy, laparoscopic sleeve gastrectomy and laparoscopic gastropexy INDICATIONS: This is a 32 year-old female who was electively scheduled for laparoscopic, possibly open sleeve gastrectomy. The risks and complications of the procedure were discussed with the patient in advance, particularly the possibility of ; pulmonary embolism; staple line leak; bleeding; GERD; cardiac, pulmonary, or renal complications; as well as long-term problems such as insufficient weight loss, vitamin deficiency, strictures, or ulcers. The p atient understood all the risks, and was in agreement to proceed with surgery. DESCRIPTION OF PROCEDURE: After informed consent was obtained from the patient, the patient was given preoperative antibiotics, and was transferred to the operating room. After successful induction of general anesthesia, pneumatic compression devices were placed on both lower extremities. An upper endoscopy was performed next. The oropharynx and esophagus appeared to be within normal limits. There was no diaphragmatic hernia present consistent with the findings of the preoperative upper GI. The stomach was entered. Then after all fluid and air were suctioned and the stomach was fully decompressed, the scope was withdrawn and secured in the mid esophagus. The patient was then prepped and draped in the usual sterile manner, and abdominal access was established at the right upper quadrant with the Sylvia technique. A 12 mm blunt port was inserted, and the abdomen was insufflated with CO2 to a pressure of 15 mmHg. Under direct visualization, additional ports were placed, specifically two 5 mm Versi-step ports to the left upper quadrant, and a 5 mm Versi-Step port to the right upper quadrant. 1% lidocaine plain was used to infiltrate all port sites as well as all fascia defects. Using the EndoClose suture passer device, I placed a #1 Polysorb tie across the falciform ligament in order to retract it up against the abdominal wall and prevent injury of the ligament with our instruments during the procedure. Following that, the patient was placed in a steep reverse Trendelenburg position. An additional 5 mm port was placed to the right flank for the Mediflex retractor that was used to retract the left lobe of the liver. The gastro-esophageal fat pad was opened with the ultrasonic device (Thunder beat, Olympus) and the anterior esophagus and hiatus were exposed. The angle of His was opened with the ultrasonic device the fundus of the stomach from any diaphragmatic and splenic attachments. I then opened the gastrocolic ligament between the transverse colon and the greater curvature of the stomach with the ultrasonic device to enter the lesser sac and facilitate the ligation of the short gastric vessels. I started at a mid-point along the greater curvature and using the Thunderbeat, all short gastric vessels were divided all the way to the angle of His until the left karen was completely dissected at its entirety. I then divided the gastro-colic ligament distally to a distance of about 3-4 cm proximal to the pylorus. The stomach was then divided transversely with two Endo GE-45 purple and four GE-60 articulating purple loads using the SIGNIA stapler and loads. Every effort was made that the gastric sleeve had a tubular shape and an even caliber throughout. Once the sleeve resection was completed, the staple line of the gastric sleeve was reinforced with Hemoclips. The resected stomach was retrieved without difficulty from the Sylvia port. A gastropexy was then performed in order to prevent postoperative GERD and partial gastric volvulus. Several interrupted 2.0 Surgidac sutures were placed between the sleeve's staple line and the previously divided greater omentum and gastro-colic ligament using the Endo-Stitch device. ?An upper endoscopy was performed. There was no narrowing at the GE junction. The scope was easily advanced all the way to the pylorus which was clearly visualized. There was no narrowing anywhere and the sleeve's caliber was even throughout. The sleeve's staple line was inspected and there was no evidence of ischemia, bleeding or dehiscence. At that point the gastroscope was withdrawn from the patient?s mouth while we were decompressing the bowel and the stomach from any remaining air. I looked into the lesser sac to see how the sleeve was situating and it was situating well. There was no bleeding from the staple line, spleen, or short gastric vessels. The Mediflex retractor was removed, and the undersurface of the liver was inspected and there was no bleeding. The patient was placed in supine position. I closed the fascial defect of the 12 mm port site with a figure of eight #1 Polysorb suture. Then 30cc Ropivacaine plain with 10 mg of Dexamethasone were used to infiltrate the fascial closure as well as all skin incisions. At this point, the abdomen was deflated, all ports were removed under direct vision, and no bleeding was noted from any of the port sites. The skin incisions were irrigated with saline and were closed with 4-0 absorbable monofilament sutures. Steri-Strips and OpSites were used to cover all incisions. The patient was extubated and was transferred in stable condition to the recovery room for further care. I was present and performed all wu parts of the procedure. Ms. Wall was the marketing operations assistant. There were no residents to assist with this case. Chepe Mukherjee MD, PhD, FACS Surgeon: Fitz Mukherjee MD Anesthesia: GETA, local and other (TAP block) Was an Hr Advisor used for this Procedure?: Yes Hr Advisor: Poonam Wall Estimated blood loss (mL): 10 IV fluids (mL): 3,000 Urine output (mL): 0 (No Do to record output) Pathology: other (Stomach) Condition: stable Disposition: PACU
--- NOTE | 2023-08-28 10:06 | P.PNGS_ITS ---
Subjective Subjective Date of Service: 08/28/23 Interval history: Feels well. Mild incisional pain. She is tolerating phase 1 bariatric diet Physical Exam 2 Vital Signs: Vital Signs: Last Vital Signs Temp 97.1 F 08/28/23 08:07 Pulse 91 08/28/23 08:07 Resp 16 08/28/23 08:07 BP 146/98 H 08/28/23 08:07 Pulse Ox 97 08/28/23 08:07 O2 Del Method Room Air 08/28/23 08:07 BMI result Body Mass Index 41.9 GI: Inspection: Yes normal to inspection, Yes incision (clean, dry and intact) and Yes obesity Palpation (GI): Soft to palpation Extrem: Right lower extremity: normal to inspection (no calf tenderness) L eft lower extremity: normal to inspection (no calf tenderness) Objective Data Active Medications Albuterol Sulfate (Albuterol Sulfate (0.083%) 2.5 Mg/3 Ml Vial.Neb) 2.5 mg INHALE ONCE PRN PRN Reason: Wheezing Fentanyl (Fentanyl Citrate/Pf 100 Mcg/2 Ml Vial) 50 mcg IVPUSH Q5M PRN; Protocol PRN Reason: Pain, Severe (Pain Scale 7-10) Hydromorphone HCl (Hydromorphone Hcl 0.5 Mg/0.5 Ml Syringe) 0.5 mg IVPUSH Q5M PRN; Protocol PRN Reason: Pain, Severe (Pain Scale 7-10) Lactated Ringer's (Lr) 1,000 mls @ 100 mls/hr IVCONT .Q10H CALEB Last Admin: 08/28/23 08:33 Dose: 100 mls/hr Documented By: EVERETT Promethazine HCl 6.25 mg/ (Sodium Chloride) 50.25 mls @ 201 mls/hr IV ONCE PRN PRN Reason: Nausea and Vomiting Ondansetron HCl (Ondansetron Hcl 4 Mg/2 Ml Vial) 4 mg IVPUSH ONCE PRN PRN Reason: Nausea and Vomiting Labs 08/15/23 08:08 08/15/23 08:08 Labs: Laboratory Results - last 24 hr 08/28/23 07:59 Urine Test NEGATIVE Procedures Date of Service Date of Service: 08/28/23 Progress Note: A&P Assessment and plan (1) Morbid obesity: Status: Acute Assessment and Plan: s/p laparoscopic sleeve gastrectomy and gastropexy Doing well Will check am labs and if OK the patient will be discharged home (2) GERD (gastroesophageal reflux disease): Status: Acute (3) Depression: Status: Acute (4) Anxiety: Status: Acute (5) Back pain: Status: Acute (6) Elevated cholesterol: Status: Acute (7) Migraine headache: Status: Acute (8) Liver fibrosis: Status: Acute (9) S/P laparoscopic sleeve gastrectomy: Status: Acute Time Spent With Patient Time: Total time managing care of this patient today ____ minutes. Quality Stroke Does the patient have a stroke diagnosis?: No VTE Prior VTE?: No VTE Risk Level:: Surgical - moderate VTE Device Contraindication: N/A - Device Ordered VTE Drug Contraindication: Treatment Not Indicated
--- NOTE | 2023-08-28 10:08 | P.DS_ITS ---
DS: Providers Provider Date of Service: 08/30/23 <JOE Costa - Last Filed: 08/30/23 10:43> Date of admission: 08/28/23 07:53 <Poonam Wall PA-C - Last Filed: 09/04/23 16:55> Primary care physician: Esdras Smith MD <Poonam Wall PA-C - Last Filed: 09/04/23 16:55> DS: Summary Hospital Course Hospital Course: ADMITTING DIAGNOSIS: morbid obesity, HLD, GERD, panic attacks, migraines DISCHARGE DIAGNOSIS: same, s/p laparoscopic sleeve gastrectomy PAST SURGICAL HISTORY: wrist surgery PROCEDURE: upper endoscopy, laparoscopic sleeve gastrectomy DISCHARGE SUMMARY: History of Present Illness: The patient is a 32 year-old woman with a BMI of 40.1 kg/m2 and associated co- morbidities as described above. The patient had extensive work-up, no weight loss preoperatively and was electively scheduled for laparoscopic, possible open sleeve gastrectomy and gastropexy. Risks and complications of the surgery were discussed with the patient in advance, particularly the possibility of , pulmonary embolism, anastomotic leak, bleeding, bowel injury, GERD, cardiac, renal or pulmonary complications. The patient understood all the risks and was in agreement with the surgical plan. Hospital Course: The patient underwent an uneventful laparoscopic sleeve gastrectomy with gastropexy on the day of admission. Postoperatively, the patient was transferred to the surgical floor. The patient received IV Acetaminophen and IV dilaudid for pain control. Patient was started on bariatric phase 1 diet POD #0. On postoperative day one, she was having complaints of midline incisional pain and was found to have leukocytosis. A CT of the abdomen and pelvis was done with oral and IV contrast to rule out a leak or mesenteric thrombosis. The CT scan was negative for leak or thrombus of the mesenteric vessels. She remained in the hospital overnight. On postop day 2, the patient was feeling better without nausea, vomiting, fevers, or tachycardia. The patient had some continued mild to moderate incisional pain and the abdomen was soft. She was tolerating oral intake well, urinating without difficulty, and ambulating unassisted. She felt as though she was able to be discharged home. She was offered a prescription for oral narcotics and initially stated she did not want them but then felt that she would feel better if we could send a prescription to the pharmacy and she would pick it up if she felt as though she needed it but she stated she was not going to get it on the way home. She additionally was taught by nursing how to self administer a subcutaneous injection as she has been given a prescription for Arixtra to take for the next 2 weeks starting tomorrow. Since the patient is doing well, we decided that the patient was ready to be discharged. The patient was given instructions to follow-up with me next week and to call my office for any fever over 101, persistent abdominal pain, nausea, vomiting, GERD, symptoms of DVT such as calf tenderness, or leg swelling, or pulmonary embolism such as chest pain or shortness of breath. The patient was also instructed to drink 40-60 ounces of liquids per day using the 1-ounce cups. The patient had been given prescriptions for Tylenol for pain, Zofran prn for nausea, and pantoprazole and carafate previously. The patient was encouraged to ambulate and use the incentive spirometer. The patient was allowed to shower, but no baths, and encouraged to stay active at home. All of these instructions were given to the patient personally. All questions were answered and the patient understood all instructions, the instructions were also given to the patient in print. <Poonam Wall PA-C - Last Filed: 09/04/23 16:55> Status at Discharge Functional status at discharge: independent ambulation <JOE Costa - Last Filed: 08/30/23 10:43> Time Attestation Discharge coordination time: Less than 30 minutes <JOE Costa Last Filed: 08/30/23 10:43> Quality: Safe Use of Opioids Does Pt have an Active Cancer Diagnosis on the Problem List?: No <JOE Costa Last Filed: 08/30/23 10:43> Quality: Stroke Does the patient have a stroke diagnosis?: No <JOE Costa Last Filed: 08/30/23 10:43> Physical Exam Vital Signs: Vital Signs: Last Vital Signs Temp 97.1 F 08/28/23 08:07 Pulse 91 08/28/23 08:07 Resp 16 08/28/23 08:07 BP 146/98 H 08/28/23 08:07 Pulse Ox 97 08/28/23 08:07 O2 Del Method Room Air 08/28/23 08:07 BMI result Body Mass Index 41.9 <VANITA Green Last Filed: 09/04/23 16:55> Const: General: cooperative, healthy appearing and no acute distress <JOE Costa Last Filed: 08/30/23 10:43> Resp: Effort & Inspection: normal respiratory effort <JOE Costa Last Filed: 08/30/23 10:43> Cardio: Rate: regular rate <JOE Costa Last Filed: 08/30/23 10:43> GI: Other: Mild midline incisional tenderness <JOE Costa Last Filed: 08/30/23 10:43> Inspection: Yes incision (Dressings are clean, dry, intact. ) <JOE Costa Last Filed: 08/30/23 10:43> DS: Data Data Completed and Pending Labs on day of discharge: Laboratory Results - last 24 hr 08/28/23 07:59 Urine Test NEGATIVE <Poonam Wall PA-C - Last Filed: 09/04/23 16:55> Discharge Plan Discharge Anticipated Discharge Date/Time: 08/29/23 10:06 <Poonam Wall PA-C - Last Filed: 09/04/23 16:55> Patient Disposition: Home, Self-Care <Poonam Wall PA-C - Last Filed: 09/04/23 16:55> Discharge Diagnosis: s/p sleeve gastrectomy <Poonam Wall PA-C - Last Filed: 09/04/23 16:55> s/p sleeve gastrectomy <JOE Costa Last Filed: 08/30/23 10:43> Referrals: Esdras Smith MD [Primary Care Provider] - 1 Week <VANITA Green Last Filed: 09/04/23 16:55> Discharge Medications: New fondaparinux 2.5 mg/0.5 mL syringe 5 mg subcut Q24H Qty: 5 1RF Continued fluoxetine 20 mg capsule 60 mg PO DAILY pantoprazole 40 mg tablet,delayed release (DR/EC) 40 mg PO DAILY@0630 Rx Instructions: 90-day supply sucralfate 100 mg/mL suspension 10 ml PO BID Qty: 600 2RF Discontinued omeprazole 40 mg capsule,delayed release(DR/EC) 1 cap PO DAILY No Action (DME) blood pressure test kit-large [[facility] CenterTouch BP Monitor] Kit See Rx Instructions .ROUTE .MEDSUPPLY Qty: 1 0RF Rx Instructions: As directed <Poonam Wall PA-C - Last Filed: 09/04/23 16:55> Discharge Orders: Discharge Order (Routine); Ordered 08/30/23 Ordered By: Daniel Castro <Poonam Wall PA-C - Last Filed: 09/04/23 16:55> Activity on Discharge: No heavy lifting <VANITA Green Last Filed: 09/04/23 16:55> No heavy lifting <JOE Costa Last Filed: 08/30/23 10:43> Stand Alone Forms: Patient Portal Discharge page <VANITA Green Last Filed: 09/04/23 16:55> Care Plan Goals: weight loss <VANITA Green Last Filed: 09/04/23 16:55> Health Concerns: morbid obesity <VANITA Green Last Filed: 09/04/23 16:55> Plan of Treatment: No tub baths, sex or returning to work until discussed at first post op appointment. No exercise, alcohol, tobacco or illegal drug use. Continue to use incentive spirometer hourly while awake. Walk in home for 5- 10 minutes every 2 hours during the first week. Continue phase 1 diet today and start phase 2 diet tomorrow morning. Follow all instructions in the bariatric handbook and call with any questions. 1. Please call your doctor or come back to the emergency room should any new symptoms arise. 2. You will receive a courtesy call from [facility] 24-48 hours after discharge. 3. Activity: abstain from alcohol, practice limited stair climbing, no bending, no driving, no exercise, no illicit substances, no lifting, no sex, no tub bath, no work. 4. Diet: continue as discussed with bariatric team.. 5. Dressing Change/Wound Care: Do not change or remove surgical dressings unless they are wet or soiled. 6. Call your doctor if: - Your temperature exceeds 101.5 F - You experience excessive pain or swelling - You have an unexpected reaction to medication - You have excessive bleeding - You experience continued vomiting/nausea - Your incision begins to separate - Your incision shows signs of infection such as increased redness, swelling, excessive pain, heat, or drainage (light blood or clear fluid is normal) 7. General instructions: No lifting greater than 5 lbs for 1 week and not more than 20lbs the next 3?weeks. No driving until seen at the office in 5-7 days after surgery. If you do not move your bowels in the next 2 days, please tell?Dr. Mukherjee. Please walk around your home every hour or two to prevent blood clots from forming in your legs. You do not need to wake from sleeping to walk. Please sleep in a bed or couch to prevent kinking at the hips and knees. Please take your incentive spirometer (your lung software engineer backend) home with you and use it for the next few days to prevent pneumonia. You may shower, no hot tubs, baths or swimming pools.?Please follow the post op diet instructions you are?given by Dr Ajay perez? and text me daily at 5-6pm for an update.?If you have any issues or concerns or questions please communicate this to him via text.? The Celebrate shakes have all of the bariatric vitamins you need if you consume these shakes. If you are drinking other protein shakes, you will need to purchase the Celebrate multivitamins and calcium that are available in the hospital gift shop on the first floor of the main hospital.??Do not take anything without first discussing with Dr Mukherjee. Please make sure you are consuming at least 40 ounces of fluids per day starting the?day AFTER your discharge from the hospital. Always drink 1-2 ml per minute using the 5ml?syringe. If you drink faster you may experience?bloating,?gas pain, burping, nausea or heartburn. In that case please slow down your pace and use the syringe to?understand better the?proper?pace and volume of drinking. Do not hesitate to contact the office with any questions at . The patient's medical history has been reviewed and they are considered low risk for post op DVT and therefore DVT prophylaxis is not considered necessary. Travel after surgery was reviewed. The patient has not disclosed any travel plans during the first 30 days after surgery and they have been advised that within the first 30 days after surgery any bus, plane, train or car travel over 2 hours in duration is contraindicated due to the possibility of developing blood clots from immobility. Any travel, needs to include periods of ambulation of 10 minutes in duration every 2 hours. The patient was instructed to discuss any plans for travel during this period with their bariatric surgeon. <Poonam Wall PA-C - Last Filed: 09/04/23 16:55> Assessment: stable, post op sleeve gastrectomy <Poonam Wall PA-C - Last Filed: 09/04/23 16:55> Patient Instructions: Fondaparinux (By injection) <Poonam Wall PA-C - Last Filed: 09/04/23 16:55> Discharge Date/Time: 08/30/23 11:32 <VANITA Green Last Filed: 09/04/23 16:55>
[2023-08-28 13:29] LABS: Hematocrit 39.8 % (37.0-47.0); Hemoglobin 13.6 g/dl (12.0-16.0)
[2023-08-28 13:42] LABS: Anion Gap 16 (12-20); Blood Urea Nitrogen 10 mg/dL (9-16); Calcium 9.1 mg/dL (8.4-10.2); Carbon Dioxide 22 mmol/L (22-29); Chloride 103 mmol/L (96-108); Creatinine Clr Calc Pharmacy 124.4; Estimated Glomerular Filt Rate > 60; Glucose Random 130 mg/dL (60-115); Potassium 3.6 mmol/L (3.3-5.1); Sodium 137 mmol/L (135-145)
[2023-08-28] MEDS: diphenhydrAMINE HCL 50 MG/ML VIAL 25 MG IVPUSH (13:55)
[2023-08-28] MEDS: 0.9 % Sodium Chloride Flush 3 ML SYRINGE IVFLUSH ×2 (15:36→19:49)
[2023-08-28] MEDS: Famotidine/PF 20 MG/2 ML VIAL IVPUSH ×2 (15:40→21:25)
[2023-08-28] MEDS: ceFAZolin Sodium/Dextrose,Iso 2 GM/50 ML PIGGYBACK IV (15:52)
[2023-08-28] MEDS: Acetaminophen 1,000 MG/100 ML PIGGYBACK 16.7 MG IV ×2 (17:15→22:38)
[2023-08-28] MEDS: ondansetron HCL 4 MG/2 ML VIAL IVPUSH (17:40)
[2023-08-28] MEDS: LORazepam 2 MG/ML VIAL 0.25 MG IVPUSH (19:46)
[2023-08-28] MEDS: HYDROmorphone HCl 0.5 MG/0.5 ML SYRINGE 0.25 MG IVPUSH (21:25)
[2023-08-29] VITALS (7 sets, daily range): BP systolic 119–152; BP diastolic 63–92; PULSE 72–86; RESP 16–18; TEMP 36.3–37.1; O2SAT 95–98
[2023-08-29] MEDS: HYDROmorphone HCl 0.5 MG/0.5 ML SYRINGE 0.25 MG IVPUSH ×4 (01:33→20:35)
[2023-08-29] MEDS: ondansetron HCL 4 MG/2 ML VIAL IVPUSH ×3 (01:33→23:44)
[2023-08-29] MEDS: Lactated Ringers 1,000 ML 100 ML IVCONT ×3 (01:34→20:10)
[2023-08-29] MEDS: Acetaminophen 1,000 MG/100 ML PIGGYBACK 16.7 MG IV ×4 (04:29→23:00)
[2023-08-29 06:46] LABS: Hematocrit 38.4 % (37.0-47.0); Hemoglobin 13.2 g/dl (12.0-16.0); Mean Corpuscular HGB Conc 34.4 g/dl (31.0-35.0); Mean Corpuscular Hemoglobin 31.4 pg (27.0-33.0); Mean Corpuscular Volume 91.2 fL (80.0-98.0); Mean Platelet Volume 11.2 fL (9.4-12.3); Platelet Count 349 X10*3/uL (160-400); Red Blood Count 4.21 X10*6/uL (4.20-5.50); Red Cell Distribution Width 12.8 % (11.0-16.0); White Blood Count 28.6 X10*3/uL (4.8-10.8)
[2023-08-29 06:55] LABS: Anion Gap 17 (12-20); Blood Urea Nitrogen 6 mg/dL (9-16); Calcium 9.3 mg/dL (8.4-10.2); Carbon Dioxide 18 mmol/L (22-29); Chloride 107 mmol/L (96-108); Creatinine Clr Calc Pharmacy 135.7; Estimated Glomerular Filt Rate > 60; Glucose Random 104 mg/dL (60-115); Potassium 4.1 mmol/L (3.3-5.1); Sodium 138 mmol/L (135-145)
[2023-08-29 07:16] LABS: SLIDE REVIEW MANUAL DIFF
[2023-08-29 07:21] LABS: Band Neutrophils Percent 3 % (3-5); Lymphocytes Absolute Manual 3.7 X10*3/uL (1.2-4.9); Lymphocytes Percent Manual 13 % (20-40); Monocytes Absolute Manual 0.6 X10*3/uL (0.1-1.2); Monocytes Percent Manual 2 % (2-11); Neutrophils Absolute Manual 24.3 X10*3/uL (2.0-8.3); Neutrophils Percent Manual 82 % (45-73)
[2023-08-29 07:22] LABS: Platelet Estimate NORMAL (NORMAL); Platelet Morphology Comment NORMAL; RBC Morphology NORMAL
[2023-08-29] MEDS: Famotidine/PF 20 MG/2 ML VIAL IVPUSH ×2 (09:07→20:10)
--- NOTE | 2023-08-29 09:10 | MHC.CM.PN ---
PATIENT IS FROM HOME W/ 10 YR OLD DTR. FUNCTIONALLY INDEPENDENT. NO SERVICES OR MEDICAL EQUIPMENT. PCP:KRISTEN PAGAN HCP, CM PROVIDED EDUCATION AND OFFERED ASSISTANCE, PATIENT DECLINED AT THIS TIME. DP: NOT MEDICALLY CLEARED FOR DC AT THIS TIME. GOAL IS HOME SELF CARE. PRIVATE TRANSPORT. CM WILL CONTINUE TO FOLLOW.
[2023-08-29] MEDS: diazePAM 10 MG/2 ML CARTRIDGE 2.5 MG IVPUSH ×2 (10:41→20:10)
[2023-08-29 13:30] LABS: Basophils Absolute Auto 0.1 X10*3/uL (0.0-0.2); Basophils Percent Auto 0.2 % (0-2); Hematocrit 38.8 % (37.0-47.0); Hemoglobin 13.1 g/dl (12.0-16.0); Imm Gran Pct Auto 0.9 % (0.0-0.4); Lymphocytes Absolute Auto 2.4 X10*3/uL (1.2-4.9); Lymphocytes Percent Auto 7.2 % (20-40); MANUAL DIFF FLAG SCAN; Mean Corpuscular HGB Conc 33.8 g/dl (31.0-35.0); Mean Corpuscular Hemoglobin 31.6 pg (27.0-33.0); Mean Corpuscular Volume 93.7 fL (80.0-98.0); Mean Platelet Volume 11.2 fL (9.4-12.3); Monocytes Absolute Auto 1.7 X10*3/uL (0.1-1.2); Monocytes Percent Auto 5.1 % (2-11); Neutrophils Absolute Auto 28.1 x10*3/uL (2.0-8.3); Neutrophils Percent Auto 86.6 % (45-73); Platelet Count 362 X10*3/uL (160-400); Red Blood Count 4.14 X10*6/uL (4.20-5.50); Red Cell Distribution Width 13.1 % (11.0-16.0); SCAN SMEAR FLAG 1
[2023-08-29 13:43] LABS: White Blood Count 32.5 X10*3/uL (4.8-10.8)
[2023-08-29 13:47] LABS: C Reactive Protein 1.67 mg/dL (< or = 0.50)
--- NOTE | 2023-08-29 14:44 | HO.POSTANES ---
Post Anesthesia Evaluation Post Anesthesia Evaluation Date of Service: 08/29/23 Vital Signs: Vital Signs Temp Pulse Resp BP Pulse Ox O2 Del Method 08/29/23 13:42 Room Air 08/29/23 11:49 97.7 F 76 18 149/81 H 98 Room Air 08/29/23 08:57 97 Room Air 08/29/23 07:30 97.4 F 72 18 152/73 H 97 Room Air 08/29/23 04:00 97.4 F 77 16 119/63 97 Room Air Anesthesia: General Endotracheal-GETA Mental Status: Awake Pain Control: Satisfactory Nausea/Vomiting: None Hydration: Adequate Anesthesia-Related Issues: No Anes. Related Issues
[2023-08-29] MEDS: Diatrizoate Meglumine, Sodium 30 ML SOLUTION 90 ML PO (16:43)
--- NOTE | 2023-08-29 17:06 | PC.NURSE ---
Medicated for pain, states not effective, Provider notified.
[2023-08-30] MEDS: HYDROmorphone HCl 0.5 MG/0.5 ML SYRINGE 0.25 MG IVPUSH ×2 (00:38→09:16)
[2023-08-30 03:17] VITALS: BP 134/63; PULSE 66; RESP 18; TEMP 36.7; O2SAT 98
[2023-08-30] MEDS: Acetaminophen 1,000 MG/100 ML PIGGYBACK 16.7 MG IV (05:01)
[2023-08-30 06:44] LABS: Baso%MD 0.3 %; Eos%MD 0.3 %; Hemoglobin 12.2 g/dl (12.0-16.0); IG%MD 0.8 %; Lymph%MD 17.2 %; Mean Corpuscular HGB Conc 33.9 g/dl (31.0-35.0); Mean Corpuscular Volume 94.5 fL (80.0-98.0); Mean Platelet Volume 11.2 fL (9.4-12.3); Mono%MD 5.4 %; Platelet Count 327 X10*3/uL (160-400); Red Blood Count 3.81 X10*6/uL (4.20-5.50); Red Cell Distribution Width 13.7 % (11.0-16.0); White Blood Count 22.4 X10*3/uL (4.8-10.8)
[2023-08-30 06:46] LABS: Anion Gap 12 (12-20); Blood Urea Nitrogen 8 mg/dL (9-16); Calcium 9.3 mg/dL (8.4-10.2); Carbon Dioxide 24 mmol/L (22-29); Chloride 109 mmol/L (96-108); Estimated Glomerular Filt Rate > 60; Glucose Random 81 mg/dL (60-115); Potassium 3.8 mmol/L (3.3-5.1); Sodium 141 mmol/L (135-145)
[2023-08-30 07:22] VITALS: BP 133/78; PULSE 73; RESP 16; TEMP 36.2; O2SAT 97
[2023-08-30 07:40] LABS: Band Neutrophils Percent 1 % (3-5); Lymphocytes Absolute Manual 3.4 X10*3/uL (1.2-4.9); Lymphocytes Percent Manual 15 % (20-40); Metamyelocytes Absolute 0.4 X10*3/uL; Metamyelocytes Percent 2 %; Monocytes Absolute Manual 0.2 X10*3/uL (0.1-1.2); Monocytes Percent Manual 1 % (2-11); Neutrophils Absolute Manual 18.4 X10*3/uL (2.0-8.3); Neutrophils Percent Manual 81 % (45-73)
[2023-08-30 07:42] LABS: Platelet Estimate NORMAL (NORMAL); Platelet Morphology Comment NORMAL; RBC Morphology NORMAL
[2023-08-30 08:00] VITALS: O2SAT 94
[2023-08-30] MEDS: FLUoxetine HCl 20 MG CAPSULE 60 MG PO (08:11)
[2023-08-30] MEDS: Famotidine/PF 20 MG/2 ML VIAL IVPUSH (08:11)
[2023-08-30] MEDS: Lactated Ringers 1,000 ML 100 ML IVCONT (08:17)
[2023-08-30] MEDS: 0.9 % Sodium Chloride Flush 3 ML SYRINGE IVFLUSH (08:20)
--- NOTE | 2023-08-30 10:43 | P.PNGS_ITS ---
Subjective Subjective Date of Service: 08/30/23 Patient reports: feels better Interval history: 32-year-old female underwent an uneventful laparoscopic sleeve gastrectomy on 08/28/2023. On the morning of 08/29/2023, she was found to have leukocytosis with repeat lab data showing worsening leukocytosis without significant vital sign abnormalities. She complained of midline abdominal pain and CT scan with oral and IV contrast was negative for leak or mesenteric thrombosis. She remained in the hospital overnight. Overnight events reviewed. She has been up, ambulating, urinating, passing flatus, overall some improvement in her abdominal pain which she describes as sharp and burning without significant radiation, worse with increased movement. Her p.o. intake is appropriate and adequate. She additionally showed good technique with incentive spirometer. Repeat labs from this morning showed decreasing leukocytosis. She does report a history of leukocytosis of unknown etiology. Given her overall sense of improvement, she will be discharged home today. Physical Exam 2 Vital Signs: Vital Signs: Last Vital Signs Temp 97.1 F 08/30/23 07:22 Pulse 73 08/30/23 07:22 Resp 16 08/30/23 07:22 BP 133/78 08/30/23 07:22 Pulse Ox 94 08/30/23 08:00 O2 Del Method Room Air 08/30/23 08:00 O2 Flow Rate 2 08/28/23 14:41 BMI result Body Mass Index 41.9 Const: General: cooperative, healthy appearing and no acute distress O rientation/consciousness: patient oriented x3 Resp: Effort & Inspection: normal respiratory effort Cardio: Rate: regular rate GI: Inspection: Yes incision (Clean, dry, intact dressings) Palpation (GI): Tenderness to palpation present (GI) in the epigastrum Skin: Other: No significant incisional bruising Neuro: General: patient oriented x3 Objective Data Active Medications Albuterol Sulfate (Albuterol Sulfate (0.083%) 2.5 Mg/3 Ml Vial.Neb) 2.5 mg INHALE ONCE PRN PRN Reason: Wheezing Diazepam (Diazepam 10 Mg/2 Ml Cartridge) 2.5 mg IVPUSH Q4H PRN PRN Reason: anxiety/restlessness Last Admin: 08/29/23 20:10 Dose: 2.5 mg Documented By: MARGARITO Famotidine (Famotidine/Pf 20 Mg/2 Ml Vial) 20 mg IVPUSH BID [facility] Last Admin: 08/30/23 08:11 Dose: 20 mg Documented By: BRYANT Fentanyl (Fentanyl Citrate/Pf 100 Mcg/2 Ml Vial) 50 mcg IVPUSH Q5M PRN; Protocol PRN Reason: Pain, Severe (Pain Scale 7-10) Fluoxetine HCl (Fluoxetine Hcl 20 Mg Capsule) 60 mg PO DAILY [facility] Last Admin: 08/30/23 08:11 Dose: 60 mg Documented By: BRYANT Hydromorphone HCl (Hydromorphone Hcl 0.5 Mg/0.5 Ml Syringe) 0.5 mg IVPUSH Q5M PRN; Protocol PRN Reason: Pain, Severe (Pain Scale 7-10) Hydromorphone HCl (Hydromorphone Hcl 0.5 Mg/0.5 Ml Syringe) 0.25 mg IVPUSH Q4H PRN; Protocol PRN Reason: Pain, Moderate(Pain Scale 4-6) Last Admin: 08/30/23 09:16 Dose: 0.25 mg Documented By: BRYANT Lactated Ringer's (Lr) 1,000 mls @ 100 mls/hr IVCONT .Q10H [facility] Last Infusion: 08/30/23 08:58 Dose: 0 mls/hr Documented By: BRYANT Acetaminophen (Ofirmev) 1,000 mg in 100 mls @ 16.7 mls/hr IV .Q6H [facility] Last Admin: 08/30/23 05:01 Dose: 16.7 mls/hr Documented By: MARGARITO Metoclopramide HCl (Metoclopramide Hcl 10 Mg/2 Ml Vial) 10 mg IVPUSH Q6H PRN PRN Reason: Nausea Ondansetron HCl (Ondansetron Hcl 4 Mg/2 Ml Vial) 4 mg IVPUSH ONCE PRN PRN Reason: Nausea and Vomiting Ondansetron HCl (Ondansetron Hcl 4 Mg/2 Ml Vial) 4 mg IVPUSH Q8H PRN PRN Reason: Nausea Last Admin: 08/29/23 23:44 Dose: 4 mg Documented By: MARGARITO Sodium Chloride (0.9 % Sodium Chloride Flush 3 Ml Syringe) 3 ml IVFLUSH QSHIFT [facility] Last Admin: 08/30/23 08:20 Dose: 3 ml Documented By: BRYANT Labs 08/30/23 05:44 08/30/23 05:44 Labs: Laboratory Results - last 24 hr 08/29/23 08/30/23 12:52 05:44 MCV 93.7 94.5 MCH 31.6 32.0 MCHC 33.8 33.9 RDW 13.1 13.7 Plt Count 362 327 MPV 11.2 11.2 Immature Gran % (Auto) 0.9 H Neut % (Auto) 86.6 H Lymph % (Auto) 7.2 L Grand % (Auto) 5.1 Eos % (Auto) 0.0 Baso % (Auto) 0.2 Lymph # (Auto) 2.4 Grand # (Auto) 1.7 H Eos # (Auto) 0.0 Baso # (Auto) 0.1 Abs Immat Gran (auto) 0.30 H Absolute Neuts (auto) 28.1 H Absolute Nucleated RBC 0.000 0.000 Nucleated RBC % (auto) 0.0 0.0 Neutrophils % (Manual) 81 H Band Neutrophils % 1 L Lymphocytes % (Manual) 15 L Monocytes % (Manual) 1 L Metamyelocytes % 2 Abs Neuts (Manual) 18.4 H Lymphocytes # (Manual) 3.4 Monocytes # (Manual) 0.2 Metamyelocytes # 0.4 Platelet Estimate NORMAL Plt Morphology Comment NORMAL RBC Morphology NORMAL Anion Gap 12 Estim Creat Clear Calc 121.0 Estimated GFR > 60 Random Glucose 81 Calcium 9.3 C-Reactive Protein 1.67 H 1.10 H Procedures Date of Service Date of Service: 08/30/23 Progress Note: A&P Assessment and plan (1) S/P laparoscopic sleeve gastrectomy: Status: Acute Plan Postop day 2, status post laparoscopic sleeve gastrectomy with postoperative leukocytosis resolving. No significant vital sign abnormality. Overall sense of improvement and plan for discharge home today. Time Spent With Patient Time: Total time managing care of this patient today 45 minutes. Quality Stroke Does the patient have a stroke diagnosis?: No VTE Prior VTE?: No VTE Risk Level:: Surgical - moderate VTE Device Contraindication: N/A - Device Ordered VTE Drug Contraindication: Treatment Not Indicated
--- NOTE | 2023-08-30 11:42 | MHC.CM.PN ---
PT WILL DC HOME TODAY VIA PRIVATE TRANSPORT NO SERVICES INDICATED
[2023-09-04 17:58] LABS: Fluoxetine + Norfluoxetine 598 mcg/L (300-1150)
== END 2023-08-30 11:32 | disposition home or self-care (01) | DRG 403 ==
LOC: HO.SSSA 10:07 → HO.S3 12:48
PROVIDERS: Nurse Practitioner; Physician Assistant; Physician Assistant Surgical; Admitting Provider Surgery; PCP Internal Medicine; Visit Provider Surgery
PROC: 0DB64Z3 Excision of Stomach, Percutaneous Endoscopic Approach, Vertical (ICD-10-PCS; CPT 43845; principal; 2023-08-28 10:10)
DX: E66.01 Morbid (severe) obesity due to excess calories (principal); K74.00 Hepatic fibrosis, unspecified; E78.5 Hyperlipidemia, unspecified; G43.909 Migraine, unspecified, not intractable, without status migrainosus; K21.9 Gastro-esophageal reflux disease without esophagitis; F41.9 Anxiety disorder, unspecified; F32.A Depression, unspecified; M54.9 Dorsalgia, unspecified; Z68.41 Body mass index [BMI] 40.0-44.9, adult; Z79.899 Other long term (current) drug therapy
CPT/HCPCS: 36415; 71046; 74177; 80048; 80053; 80061; 80332; 81025; 82306; 82607; 82728; 82746; 83036; 83525; 83540; 84425; 84443; 84590; 84630; 85007; 85014; 85018; 85025; 85027; 85610; 85730; 86140; 86850; 86900; 86901; 88304; 88305; 88307; 88342; A4649; C9145; J0131; J0690; J1100; J1170; J1200; J1630; J2060; J2250; J2405; J2550; J2704; J2795; J3010; J3360; J7120

== ENCOUNTER → 2023-08-28 07:53 | Outpatient (BNV) | payer OTHER, SELFPAY | PROVIDERS: Admitting Provider Surgery; PCP Internal Medicine; Visit Provider Surgery | DX: E66.01 Morbid (severe) obesity due to excess calories (principal); Z68.41 Body mass index [BMI] 40.0-44.9, adult | CPT/HCPCS: 43659; 43775; 99024 ==

== ENCOUNTER 2023-09-03 13:47 | Outpatient (AMB) | payer OTHER, SELFPAY ==
--- NOTE | 2023-09-03 14:33 | A.OFFVIS_ITS ---
Intake VS Expanded 09/03/23 14:42 BP 127/62 Blood Pressure Location Lt brachial Pulse 83 Pulse Source Pulse Oximeter Temp 96.5 F L Temperature Source Tympanic Pulse Oximetry 96 Oxygen Delivery Method Room Air Height 5 ft 2 in Weight 218 lb BMI 39.9 Body Fat % 46.2 Body Fat Mass 100.6 Fat Free Mass 117.2 Visceral Fat Rating 12.0 Body Water % 38.7 Body Water Mass 84.2 Muscle Mass/Score 111.4 Basal Metabolic Rate/Score 1,677 Intake Visit Reasons: (OV) PO LSG 08/28/23 Allergies sumatriptan [From IMITREX] Allergy (Severe, Verified 09/03/23 14:34) THROAT SWELLING metoclopramide [From REGLAN] Allergy (Intermediate, Verified 09/03/23 14:34) HEART RACES HPI HPI Comments History of Present Illness Details Pleasant 32-year-old female returns to the office today in follow-up. She is postop day 6, status post sleeve gastrectomy performed on 08/28/2023. She is tolerating 3 celebrate 4 in 1 shakes with 1 scoop each in 8 oz of almond milk. She moved her bowels and denies any significant pain [facility] Medical History (Updated 08/30/23 @ 09:19 by Fitz Mukherjee MD) Back pain Morbid obesity GERD (gastroesophageal reflux disease) Migraine headache Panic attacks Elevated cholesterol Depression Anxiety Surgical History (Updated 09/03/23 @ 14:35 by Lorraine Mcgraw CMA) Hx of laparoscopic partial gastrectomy History of surgery on wrist Family History Mother Kidney disease Father No problems noted. Brother No problems noted. Daughter No problems noted. 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 to a significant other at home: Yes Do you presently have visiting nurse or other home services: No Alcohol intake: current Alcohol intake frequency: does not drink Patient Tobacco Use Status: Never used Tobacco Cigarettes Per Day: 4 Substance Use Type: Marijuana Physical Exam Vital Signs: Last Vital Signs Temp 96.5 F L 09/03/23 14:42 Pulse 83 09/03/23 14:42 BP 127/62 09/03/23 14:42 Pulse Ox 96 09/03/23 14:42 Oxygen Delivery Method Room Air 09/03/23 14:42 BMI result Body Mass Index 39.9 GI Inspection: Yes incision (Clean, dry, intact.) Assessment & Plan Assessment & Plan (1) S/P laparoscopic sleeve gastrectomy: Code(s): Z98.84 - Bariatric surgery status Plan: POD 6 s/p LSG on 08/28/[address] Mukherjee Weight loss prior to surgery was 5.4 pounds or 2.3 % TBWL. Original weight on 06/06/2023 was 232.8 pounds and op weight was 227.4 pounds. Be sure to text Dr Mukherjee exactly 1 week after surgery your weight from your home scale so he can adjust your meal plan. Continue meal plan until f/u w Dianne in 2 weeks May shower, no submersion in bath for another week Continue abdominal binder with activity and exercise for the next 2 weeks. Exercise prior to surgery was stationary bike, may resume No abdominal exercises for 6 weeks post operatively Will be emailed link to post op video for review Reminded of the pace of drinking, 2 mL per minute, 1 oz/15 min. Coding Level of Care Code Global (03225) Diagnoses S/P laparoscopic sleeve gastrectomy Z98.84
[2023-09-03 14:42] VITALS: BP 127/62; PULSE 83; TEMP 35.8; O2SAT 96; BMI 39.9
== END 2023-09-03 16:13 | disposition home or self-care (01) ==
PROVIDERS: PCP Internal Medicine; Visit Provider Physician Assistant Surgical
DX: E66.9 Obesity, unspecified (principal); Z68.39 Body mass index [BMI] 39.0-39.9, adult; Z90.3 Acquired absence of stomach [part of]; Z98.84 Bariatric surgery status
CPT/HCPCS: 99024

== ENCOUNTER → 2023-09-03 13:47 | Outpatient (BNVA) | payer OTHER, SELFPAY | PROVIDERS: PCP Internal Medicine; Visit Provider Physician Assistant Surgical | DX: Z98.84 Bariatric surgery status (principal) | CPT/HCPCS: 99212 ==

== ENCOUNTER → 2023-09-19 08:54 | Outpatient (BNVA) | payer OTHER, SELFPAY | PROVIDERS: PCP Internal Medicine; Visit Provider Physician Assistant ==

== ENCOUNTER 2023-09-24 09:50 | Outpatient (AMB) | payer OTHER, SELFPAY ==
--- NOTE | 2023-09-24 09:39 | A.OFFVIS_ITS ---
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 2 scoops 41in1 with 8oz almond milk 1 shake 1 scoop of orgain with almond mi lk - was doing 2 scoops but didn't like how thick it was . is receptive to protein water and clears 40oz water Exercise: Bike or treadmill, 5 days per week between 30-45 minutes Dietary counseling reduction Diagnosis Nutrition problem #1 overweight/obesity As related to (etiology) #1 excess energy intake and physical inactivity As evidenced by (sign/symptom) #1 high BMI Monitoring/Goals Nutrition problem monitoring total energy intake, level of knowledge/skill, total PRO intake, total CHO intake and weight Outcome progress progressing Learning/Education Readiness to learn good Stages of change action Educational materials provided Yes Most Recent Diabetes Results: Cholesterol 225 mg/dL (<200) H 08/15/23 HDL Cholesterol 40 mg/dL (>40) L 08/15/23 Triglycerides 168 mg/dL (<150) H 08/15/23 Creatinine 0.74 mg/dL (0.5-1.4) 08/30/23 Blood Urea Nitrogen 8 mg/dL (9-16) L 08/30/23 Sodium 141 mmol/L (135-145) 08/30/23 Potassium 3.8 mmol/L (3.3-5.1) 08/30/23 Chloride 109 mmol/L (96-108) H 08/30/23 Carbon Dioxide 24 mmol/L (22-29) 08/30/23 Calcium 9.3 mg/dL (8.4-10.2) 08/30/23 AST 17 U/L (5-31) 08/15/23 ALT 15 U/L (0-31) 08/15/23 Total Protein 7.3 g/dL (6.5-8.0) 08/15/23 Albumin 4.2 g/dL (3.5-5.0) 08/15/23 PFSH Medical History (Updated 09/07/23 @ 00:01 by Background Daemon) Back pain Morbid obesity GERD (gastroesophageal reflux disease) Migraine headache Panic attacks Elevated cholesterol Depression Anxiety Surgical History (Updated 09/07/23 @ 00:01 by Background Daemon) Hx of laparoscopic partial gastrectomy History of surgery on wrist Family History Mother Kidney disease Father No problems noted. Brother No problems noted. Daughter No problems noted. 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 human services care specialist to a significant other at home: Yes Do you presently have visiting nurse or other home services: No Alcohol intake: current Alcohol intake frequency: does not drink Patient Tobacco Use Status: Never used Tobacco Cigarettes Per Day: 4 Substance Use Type: Marijuana Assessment & Plan Assessment & Plan (1) Obesity (BMI 30-39.9): Code(s): E66.9 - Obesity, unspecified Plan would benefit from more protein, closer to 70-80g per day. Will send protein water list. recommended doing 2 scoops of orgain in the meantime . f/u wiht me next week to advance diet at pt request Telehealth Telehealth Location of provider rendering services: practice address Location of patient: address on file Patient Identification confirmed using: Name, : Yes Telehealth method: voice only Patient verbally consented to treatment: Yes Patient verbally consented to billing insurance company: Yes Patient informed of any privacy concerns related to visit: Yes Minutes spent on Phone/Video with Pt.: 15 Coding Level of Care Code Nutr Indiv Subseq (73915) Diagnoses Obesity (BMI 30-39.9) E66.9 Time Spent (min) 15
[2023-09-24 09:58] VITALS: BMI 36.8
== END 2023-09-24 09:51 | disposition home or self-care (01) ==
LOC: HO.HBS 09:50
PROVIDERS: PCP Internal Medicine; Visit Provider Dietitian, Registered
DX: E66.9 Obesity, unspecified (principal)

== ENCOUNTER → 2023-09-24 09:50 | Outpatient (BNVA) | payer OTHER, SELFPAY | PROVIDERS: PCP Internal Medicine; Visit Provider Dietitian, Registered | DX: E66.9 Obesity, unspecified (principal); Z68.36 Body mass index [BMI] 36.0-36.9, adult | CPT/HCPCS: 97803 ==

== ENCOUNTER 2023-10-03 09:49 | Outpatient (AMB) | payer OTHER, SELFPAY ==
--- NOTE | 2023-10-03 09:35 | MHC.AMNUTRGE ---
Intake VS Expanded 10/03/23 09:43 Height 5 ft 3 in Weight 205 lb BMI 36.3 Intake Visit Reasons: (TV) PO LSG 08/28/23 Allergies sumatriptan [From IMITREX] Allergy (Severe, Verified 09/03/23 14:34) THROAT SWELLING metoclopramide [From REGLAN] Allergy (Intermediate, Verified 09/03/23 14:34) HEART RACES HPI Nutrition Presentation Details s/p LSG on 08/28/[address] Mukherjee weight at 1 wks PO 218# weight at 4wks PO 208# current weight 5wks 205# Reason for consult elevated BMI Diet Assmnt Details Pt reports feeling better, last appt reported feeling dizzy/weak but this has improved. 2 scoops 41in1 with 8oz almond milk tried a few protein options such a premier premade, protein 2o cantor, and the orgain. Likes the premier premade the best. 40oz water Exercise: Bike or treadmill, 5 days per week between 30-45 minutes , tries for everyday Dietary counseling reduction Diagnosis Nutrition problem #1 overweight/obesity As related to (etiology) #1 excess energy intake and physical inactivity As evidenced by (sign/symptom) #1 high BMI Monitoring/Goals Nutrition problem monitoring total energy intake, level of knowledge/skill, total PRO intake, total CHO intake and weight Outcome progress progressing Learning/Education Readiness to learn good Stages of change action Educational materials provided Yes Most Recent Diabetes Results: Cholesterol 225 mg/dL (<200) H 08/15/23 HDL Cholesterol 40 mg/dL (>40) L 08/15/23 Triglycerides 168 mg/dL (<150) H 08/15/23 Creatinine 0.74 mg/dL (0.5-1.4) 08/30/23 Blood Urea Nitrogen 8 mg/dL (9-16) L 08/30/23 Sodium 141 mmol/L (135-145) 08/30/23 Potassium 3.8 mmol/L (3.3-5.1) 08/30/23 Chloride 109 mmol/L (96-108) H 08/30/23 Carbon Dioxide 24 mmol/L (22-29) 08/30/23 Calcium 9.3 mg/dL (8.4-10.2) 08/30/23 AST 17 U/L (5-31) 08/15/23 ALT 15 U/L (0-31) 08/15/23 Total Protein 7.3 g/dL (6.5-8.0) 08/15/23 Albumin 4.2 g/dL (3.5-5.0) 08/15/23 PFSH Medical History (Updated 09/07/23 @ 00:01 by Background Daemon) Back pain Morbid obesity GERD (gastroesophageal reflux disease) Migraine headache Panic attacks Elevated cholesterol Depression Anxiety Surgical History (Updated 09/07/23 @ 00:01 by Background Daemon) Hx of laparoscopic partial gastrectomy History of surgery on wrist Family History Mother Kidney disease Father No problems noted. Brother No problems noted. Daughter No problems noted. 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 She will stay on this until next nutrition appointment in 2 weeks on at 09:30. Encouraged to communicate as needed Telehealth Telehealth Location of provider rendering services: practice address Location of patient: address on file Patient Identification confirmed using: Name, : Yes Telehealth method: voice only Patient verbally consented to treatment: Yes Patient verbally consented to billing insurance company: Yes Patient informed of any privacy concerns related to visit: Yes Minutes spent on Phone/Video with Pt.: 15 Coding Level of Care Code Nutr Indiv Subseq (82205) Diagnoses Obesity (BMI 30-39.9) E66.9 Time Spent (min) 15
[2023-10-03 09:43] VITALS: BMI 36.3
== END 2023-10-03 10:02 | disposition home or self-care (01) ==
LOC: HO.HBS 09:49
PROVIDERS: PCP Internal Medicine; Visit Provider Dietitian, Registered
DX: E66.9 Obesity, unspecified (principal)

== ENCOUNTER → 2023-10-03 09:49 | Outpatient (BNVA) | payer OTHER, SELFPAY | PROVIDERS: PCP Internal Medicine; Visit Provider Dietitian, Registered | DX: E66.9 Obesity, unspecified (principal); Z68.36 Body mass index [BMI] 36.0-36.9, adult | CPT/HCPCS: 97803 ==

== ENCOUNTER 2023-12-03 14:47 | Outpatient (AMB) | payer OTHER, SELFPAY ==
--- NOTE | 2023-12-03 14:51 | MHC.OFFVISWM ---
Intake VS Expanded 12/03/23 14:58 BP 145/84 H Blood Pressure Location Rt brachial Blood Pressure Position Sitting Pulse 78 Pulse Source Pulse Oximeter Temp 97.2 F Temperature Source Temporal Artery Scan Pulse Oximetry 97 Oxygen Delivery Method Room Air Height 5 ft 3 in Weight 179 lb 6.4 oz BMI 31.8 Body Fat % 39.5 Body Fat Mass 70.8 Fat Free Mass 108.4 Visceral Fat Rating 8.0 Body Water % 43.4 Body Water Mass 77.8 Muscle Mass/Score 103.0 Basal Metabolic Rate/Score 1,517 Intake Visit Reasons: (OV) PO LSG 08/28/23 Technical Support 1 Software Engineer Required: No Allergies sumatriptan [From IMITREX] Allergy (Severe, Verified 12/03/23 15:00) THROAT SWELLING metoclopramide [From REGLAN] Allergy (Intermediate, Verified 12/03/23 15:00) HEART RACES Medication List - Last Reconciled 12/03/23 by JOE Costa blood pressure test kit-large ([employer]Touch Blood Pressure Monitor kit) As directed fluoxetine 60 mg PO DAILY HPI HPI Comments History of Present Illness Details This?a?33?yo female who is s/p LSG without hiatal hernia repair on?08/28/2023. Presents for three-month post op visit. Weight today is 179.4 pounds, with a BMI of 31.8. There has been a 53.4 pound weight loss,(initial weight 232.8 pounds) since starting the program on 06/06/2023 reflecting a 22.9 % total body weight loss and a weight loss of 48 pounds since surgery (operative weight 227.4 pounds) reflecting a 21 % TBWL since surgery. No complaints of nausea, emesis, abdominal pain or reflux. Reports infrequent but normal bowel movements every 1-2 days. She states that over the last several weeks, due to financial constraints, she has been unable to purchase the celebrate shakes and therefore has been using her food stamps for premier protein ready to drink shakes. She states that she has difficulty not only with the shakes but with bites of egg or yogurt causing nausea. She also states that she has been under a significant amount of stress lately with her mother experiencing cardiac issues, now requiring cardiac surgery and her daughter thinks she is transgender. She was seeing a therapist and is no longer seeing her therapist due to missed appointments. Told that she can go to a walk in clinic at [facility] but has not yet done so. Present meal plan includes: 10-12 Premier protein RTD, variety pack, prefers chocolate or cafe late 1-3 another shake 4-6 another shake tries a couple bites egg or vietnamese yogurt Drinking 24 oz water ? Exercise routine includes: treadmill 3 days per week none this week due to weakness walking outside [facility] Medical History Back pain Morbid obesity GERD (gastroesophageal reflux disease) Migraine headache Panic attacks Elevated cholesterol Depression Anxiety Surgical History Hx of laparoscopic partial gastrectomy History of surgery on wrist Family History Mother Kidney disease Father No problems noted. Brother No problems noted. Daughter No problems noted. 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 career representative to a significant other at home: Yes Do you presently have visiting nurse or other home services: No Alcohol intake: current Alcohol intake frequency: does not drink Patient Tobacco Use Status: Never used Tobacco Cigarettes Per Day: 4 Substance Use Type: Marijuana Physical Exam Const General: healthy appearing and no acute distress Resp Effort & Inspection: normal respiratory effort Auscultation: clear to auscultation bilaterally Cardio Rate: regular rate Rhythm: regular rhythm GI Auscultation: normal bowel sounds Extrem General: Yes normal to inspection Assessment & Plan Assessment & Plan (1) S/P laparoscopic sleeve gastrectomy: Code(s): Z98.84 - Bariatric surgery status Plan: Patient was tearful today discussing the stressors as listed in the HPI. Discussed the critical nature of addressing her underlying stress with behavioral health management and its direct correlation with her sense of nausea. We will change meal plans slightly to include Premier protein, ready to drink shake. Half shake with 6 oz of unsweetened almond milk, x 4. May substitute the last shake with celebrate Premier water or Premier protein water. Encouraged to text in 1 week to report on how she is doing. Strongly encouraged to see Behavioral Health at the walk-in clinic tomorrow morning. Coding Level of Care Code Est Pt Level 3 (08117) Diagnoses S/P laparoscopic sleeve gastrectomy Z98.84
[2023-12-03 14:58] VITALS: BP 145/84; PULSE 78; TEMP 36.2; O2SAT 97; BMI 31.8
== END 2023-12-03 15:37 | disposition home or self-care (01) ==
PROVIDERS: PCP Internal Medicine; Visit Provider Physician Assistant Surgical
DX: E66.9 Obesity, unspecified (principal); Z68.31 Body mass index [BMI] 31.0-31.9, adult; Z90.3 Acquired absence of stomach [part of]; Z98.84 Bariatric surgery status
CPT/HCPCS: 99213

== ENCOUNTER → 2023-12-03 14:47 | Outpatient (BNVA) | payer OTHER, SELFPAY | PROVIDERS: PCP Internal Medicine; Visit Provider Physician Assistant Surgical | DX: E66.01 Morbid (severe) obesity due to excess calories (principal); Z68.31 Body mass index [BMI] 31.0-31.9, adult; Z90.3 Acquired absence of stomach [part of] | CPT/HCPCS: 99212 ==

== ENCOUNTER 2024-03-16 18:22 | Emergency (ER) | payer OTHER, SELFPAY ==
--- NOTE | ~2024-03-16 | US_ITS ---
EXAMINATION: US PELVIS CLINICAL INFORMATION: Severe pelvic pain with intercourse. History of IUD. COMPARISON: None available. TECHNIQUE: Ultrasound of the pelvis is performed using both transabdominal and transvaginal transducers along with Doppler. Transvaginal imaging is performed due to inadequate visualization transabdominally. FINDINGS: Uterus: The uterus is anteverted and measures 8.3 x 3.5 x 4.5 cm. 71.5 mL The double wall endometrial thickness is 5 mm. IUD in good position in the endometrial cavity. The uterus is smooth in contour and has normal myometrial echogenicity. No visible fibroid. Adnexa: Both ovaries are visualized. There is normal color flow to the adnexa. There is no ovarian torsion. There is no pelvic ascites or fluid collection. Right ovary measures 3.9 x 3.6 x 2.3 cm. 16.9 mL. Complex cyst in the right ovary measuring 0.6 x 1.3 x 2.8 cm Left ovary measures 3.2 x 2.4 x 2 cm. 8 mL. Cul-de-sac: Small volume of fluid in the cul-de-sac. US/US pelvic and transvaginal IMPRESSION: 1. IUD in good position in the endometrial cavity. 2. 2.8 cm complex cyst right ovary. Findings are overwhelmingly likely to represent a normal ovarian follicle. No followup imaging recommended.
[2024-03-16 19:39] VITALS: BP 142/86; PULSE 74; RESP 16; TEMP 36.8; O2SAT 99; BMI 30.7
--- NOTE | 2024-03-16 19:39 | ED_ITS ---
HPI - Female Genitourinary General Chief complaint: Urogenital-Female Stated complaint: Pelvic pain Related Data Home Medications ?Medication ?Instructions ?Recorded ?Confirmed fluoxetine 20 mg capsule 60 mg PO DAILY 04/10/22 12/03/23 Previous Rx's ?Medication ?Instructions ?Recorded blood pressure test kit-tone #Danuta ea 10/17/22 ([employer] Blood Pressure Monitor kit) Allergies Allergy/AdvReac Type Severity Reaction Status Date / Time sumatriptan [From IMITREX] Allergy Severe THROAT Verified 03/16/24 19:41 SWELLING metoclopramide [From REGLAN] Allergy Intermediate HEART RACES Verified 03/16/24 19:41 PMFSH Past Medical History Medical History Back pain Morbid obesity GERD (gastroesophageal reflux disease) Migraine headache Panic attacks Elevated cholesterol Depression Anxiety Surgical History Hx of laparoscopic partial gastrectomy History of surgery on wrist Family History Family History Mother Kidney disease Father No problems noted. Brother No problems noted. Daughter No problems noted. Social History 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 health care facility administrator to a significant other at home: Yes Do you presently have visiting nurse or other home services: No Alcohol intake: current Alcohol intake frequency: does not drink Patient Tobacco Use Status: Never used Tobacco Cigarettes Per Day: 4 Smoked in Last 30 Days: Yes Substance Use Type: Marijuana Advance Directives: No Advance Directives Information Provided: No Do you have a plan to hurt others: No Plan Patient : No Physical Exam 2 Vital Signs: Vital Signs: Last Vital Signs Temp 98.9 F 03/16/24 21:18 Pulse 61 03/16/24 21:18 Resp 17 03/16/24 21:18 BP 123/59 L 03/16/24 21:18 Pulse Ox 99 03/16/24 21:18 O2 Del Method Room Air 03/16/24 21:18 BMI result Body Mass Index 30.7 Course Course Course Narrative: This is a Rapid Medical Examination (RME) performed by Kristel Corrales PA-C in triage. Full HPI, ROS, assessment and treatment plan per primary provider in the Main ED. 33 y/o with history of IUD who presents to the ER for evaluation of severe pelvic pain that started a few hours ago after having intercourse. reports some discomfort with sex recently but not like this. pain so severe she vomited. no vaginal bleeding or discharge since. does not get menstrual cycle w/ IUD in place. in triage patient is very uncomfortable. having a hard time sitting. she is hemodyncamically stable, speaking in complete sentences. abd is soft with minimal tenderness of the suprapubic area. no rebound or guarding. concern for possible migration or perforation w/ IUD? no history of ovarian cysts per her report. Plan: pelvic U/S, labs Reevaluation(s) Reevaluation #1: US/US pelvic and transvaginal IMPRESSION: 1. IUD in good position in the endometrial cavity. 2. 2.8 cm complex cyst right ovary. Findings are overwhelmingly likely to represent a normal ovarian follicle. No followup imaging recommended. patient left without completing treatment. Medical Decision Making Lab Data 03/16/24 20:09 03/16/24 20:09 Labs: Lab Results 03/16/24 Range/Units 20:09 WBC 17.6 H (4.8-10.8) X10*3/uL RBC 4.92 D (4.20-5.50) X10*6/uL Hgb 15.6 D (12.0-16.0) g/dl Hct 45.2 D (37.0-47.0) % MCV 91.9 (80.0-98.0) fL MCH 31.7 (27.0-33.0) pg MCHC 34.5 (31.0-35.0) g/dl RDW 14.5 (11.0-16.0) % Plt Count 317 (160-400) X10*3/uL MPV 10.3 (9.4-12.3) fL Immature Gran % (Auto) 0.6 H (0.0-0.4) % Neut % (Auto) 70.9 (45-73) % Lymph % (Auto) 22.1 (20-40) % Mower % (Auto) 4.5 (2-11) % Eos % (Auto) 1.5 (0-4) % Baso % (Auto) 0.4 (0-2) % Lymph # (Auto) 3.9 (1.2-4.9) X10*3/uL Mower # (Auto) 0.8 (0.1-1.2) X10*3/uL Eos # (Auto) 0.3 (0.0-0.4) X10*3/uL Baso # (Auto) 0.1 (0.0-0.2) X10*3/uL Abs Immat Gran (auto) 0.10 H (0.00-0.03) X10*3/uL Absolute Neuts (auto) 12.5 H (2.0-8.3) x10*3/uL Absolute Nucleated RBC 0.000 (0.0-0.012) X10*3/uL Nucleated RBC % (auto) 0.0 (0.0-0.2) /100WBC Sodium 140 (135-145) mmol/L Potassium 3.8 (3.3-5.1) mmol/L Chloride 105 (96-108) mmol/L Carbon Dioxide 24 (22-29) mmol/L Anion Gap 15 (12-20) BUN 13 (9-16) mg/dL Creatinine 0.76 (0.5-1.4) mg/dL Estim Creat Clear Calc 98.7 Estimated GFR > 60 Random Glucose 89 (60-115) mg/dL Calcium 10.1 D (8.4-10.2) mg/dL Magnesium 2.2 (1.6-2.6) mg/dL Total Bilirubin 0.4 (0.0-1.0) mg/dL Direct Bilirubin 0.1 (0.0-0.5) mg/dL AST 15 (5-31) U/L ALT 7 (0-31) U/L Alkaline Phosphatase 93 (39-117) U/L Total Protein 7.4 (6.5-8.0) g/dL Albumin 4.2 (3.5-5.0) g/dL Beta HCG, Quant < 2 mIU/mL Scores Heart Score ECG: -0- normal Discharge Plan Discharge Clinical Impression: Pelvic pain Patient Disposition: Left W/O Completing Treatment Prescriptions: No Action (DME) blood pressure test kit-large [[employer] BP Monitor] Kit See Rx Instructions .ROUTE .MEDSUPPLY Qty: 1 0RF Rx Instructions: As directed fluoxetine 20 mg capsule 60 mg PO DAILY Discharge Date/Time: 03/16/24 23:42
--- NOTE | 2024-03-16 20:05 | MHC.EDTECH ---
Patient brought into triage area,labs were drawn and sent to lab, Attempted to get a UA,patient had just used the restroom prior to being called, will re-attempt,patient brought back to [facility].
[2024-03-16 20:16] LABS: MANUAL DIFF FLAG NO
[2024-03-16 20:18] LABS: Basophils Absolute Auto 0.1 X10*3/uL (0.0-0.2); Basophils Percent Auto 0.4 % (0-2); Eosinophils Absolute Auto 0.3 X10*3/uL (0.0-0.4); Eosinophils Percent Auto 1.5 % (0-4); Hematocrit 45.2 % (37.0-47.0); Hemoglobin 15.6 g/dl (12.0-16.0); Imm Gran Pct Auto 0.6 % (0.0-0.4); Lymphocytes Absolute Auto 3.9 X10*3/uL (1.2-4.9); Lymphocytes Percent Auto 22.1 % (20-40); Mean Corpuscular HGB Conc 34.5 g/dl (31.0-35.0); Mean Corpuscular Hemoglobin 31.7 pg (27.0-33.0); Mean Corpuscular Volume 91.9 fL (80.0-98.0); Mean Platelet Volume 10.3 fL (9.4-12.3); Monocytes Absolute Auto 0.8 X10*3/uL (0.1-1.2); Monocytes Percent Auto 4.5 % (2-11); Neutrophils Absolute Auto 12.5 x10*3/uL (2.0-8.3); Neutrophils Percent Auto 70.9 % (45-73); Platelet Count 317 X10*3/uL (160-400); Red Blood Count 4.92 X10*6/uL (4.20-5.50); Red Cell Distribution Width 14.5 % (11.0-16.0); White Blood Count 17.6 X10*3/uL (4.8-10.8)
[2024-03-16 20:39] LABS: Alanine Aminotransferase 7 U/L (0-31); Albumin Level 4.2 g/dL (3.5-5.0); Alkaline Phosphatase 93 U/L (39-117); Anion Gap 15 (12-20); Aspartate Amino Transferase 15 U/L (5-31); Bilirubin Direct 0.1 mg/dL (0.0-0.5); Bilirubin Total 0.4 mg/dL (0.0-1.0); Blood Urea Nitrogen 13 mg/dL (9-16); Calcium 10.1 mg/dL (8.4-10.2); Carbon Dioxide 24 mmol/L (22-29); Chloride 105 mmol/L (96-108); Creatinine Clr Calc Pharmacy 98.7; Estimated Glomerular Filt Rate > 60; Glucose Random 89 mg/dL (60-115); Magnesium 2.2 mg/dL (1.6-2.6); Potassium 3.8 mmol/L (3.3-5.1); Sodium 140 mmol/L (135-145); Total Protein 7.4 g/dL (6.5-8.0)
[2024-03-16 20:45] LABS: HCG Quantitative < 2 mIU/mL
[2024-03-16 21:18] VITALS: BP 123/59; PULSE 61; RESP 17; TEMP 37.2; O2SAT 99
--- NOTE | 2024-05-05 09:26 | ED.ABDPAIN ---
HPI - Abdominal Pain General Chief Complaint: Urogenital-Female Stated Complaint: Pelvic pain Related Data Home Medications ?Medication ?Instructions ?Recorded ?Confirmed fluoxetine 20 mg capsule 60 mg PO DAILY 04/10/22 12/03/23 Previous Rx's ?Medication ?Instructions ?Recorded blood pressure test kit-tone Lewis ea 10/17/22 ([employer] Blood Pressure Monitor kit) Allergies Allergy/AdvReac Type Severity Reaction Status Date / Time sumatriptan [From IMITREX] Allergy Severe THROAT Verified 03/16/24 19:41 SWELLING metoclopramide [From REGLAN] Allergy Intermediate HEART RACES Verified 03/16/24 19:41 PMFSH Past Medical History Medical History Back pain Morbid obesity GERD (gastroesophageal reflux disease) Migraine headache Panic attacks Elevated cholesterol Depression Anxiety Surgical History Hx of laparoscopic partial gastrectomy History of surgery on wrist Family History Family History Mother Kidney disease Father No problems noted. Brother No problems noted. Daughter No problems noted. Social History 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 morning caregiver to a significant other at home: Yes Do you presently have visiting nurse or other home services: No Alcohol intake: current Alcohol intake frequency: does not drink Patient Tobacco Use Status: Never used Tobacco Cigarettes Per Day: 4 Smoked in Last 30 Days: Yes Substance Use Type: Marijuana Advance Directives: No Advance Directives Information Provided: No Do you have a plan to hurt others: No Plan Patient : No Physical Exam ED Vital Signs: BMI result Body Mass Index 30.7 Medical Decision Making Lab Data 03/16/24 20:09 03/16/24 20:09 Labs: Lab Results 03/16/24 Range/Units 20:09 WBC 17.6 H (4.8-10.8) X10*3/uL RBC 4.92 D (4.20-5.50) X10*6/uL Hgb 15.6 D (12.0-16.0) g/dl Hct 45.2 D (37.0-47.0) % MCV 91.9 (80.0-98.0) fL MCH 31.7 (27.0-33.0) pg MCHC 34.5 (31.0-35.0) g/dl RDW 14.5 (11.0-16.0) % Plt Count 317 (160-400) X10*3/uL MPV 10.3 (9.4-12.3) fL Immature Gran % (Auto) 0.6 H (0.0-0.4) % Neut % (Auto) 70.9 (45-73) % Lymph % (Auto) 22.1 (20-40) % Terrell % (Auto) 4.5 (2-11) % Eos % (Auto) 1.5 (0-4) % Baso % (Auto) 0.4 (0-2) % Lymph # (Auto) 3.9 (1.2-4.9) X10*3/uL Terrell # (Auto) 0.8 (0.1-1.2) X10*3/uL Eos # (Auto) 0.3 (0.0-0.4) X10*3/uL Baso # (Auto) 0.1 (0.0-0.2) X10*3/uL Abs Immat Gran (auto) 0.10 H (0.00-0.03) X10*3/uL Absolute Neuts (auto) 12.5 H (2.0-8.3) x10*3/uL Absolute Nucleated RBC 0.000 (0.0-0.012) X10*3/uL Nucleated RBC % (auto) 0.0 (0.0-0.2) /100WBC Sodium 140 (135-145) mmol/L Potassium 3.8 (3.3-5.1) mmol/L Chloride 105 (96-108) mmol/L Carbon Dioxide 24 (22-29) mmol/L Anion Gap 15 (12-20) BUN 13 (9-16) mg/dL Creatinine 0.76 (0.5-1.4) mg/dL Estim Creat Clear Calc 98.7 Estimated GFR > 60 Random Glucose 89 (60-115) mg/dL Calcium 10.1 D (8.4-10.2) mg/dL Magnesium 2.2 (1.6-2.6) mg/dL Total Bilirubin 0.4 (0.0-1.0) mg/dL Direct Bilirubin 0.1 (0.0-0.5) mg/dL AST 15 (5-31) U/L ALT 7 (0-31) U/L Alkaline Phosphatase 93 (39-117) U/L Total Protein 7.4 (6.5-8.0) g/dL Albumin 4.2 (3.5-5.0) g/dL Beta HCG, Quant < 2 mIU/mL Discharge Plan Discharge Clinical Impression: Pelvic pain Patient Disposition: Left W/O Completing Treatment Prescriptions: No Action (DME) blood pressure test kit-large [[employer] BP Monitor] Kit See Rx Instructions .ROUTE .MEDSUPPLY Qty: 1 0RF Rx Instructions: As directed fluoxetine 20 mg capsule 60 mg PO DAILY Discharge Date/Time: 03/16/24 23:42
== END 2024-03-16 23:42 | disposition left against medical advice (07) ==
PROVIDERS: Physician Assistant; Emergency Provider Emergency Medicine; PCP Internal Medicine
DX: N83.201 Unspecified ovarian cyst, right side (principal); R10.2 Pelvic and perineal pain; Z79.899 Other long term (current) drug therapy
CPT/HCPCS: 36415; 76830; 76856; 80048; 80076; 83735; 84702; 85025; 99284

== ENCOUNTER 2024-09-11 11:46 | Inpatient (IN) | payer OTHER, SELFPAY ==
--- NOTE | ~2024-09-11 | CT_ITS ---
CLINICAL HISTORY: L sided hand weakness, confusion CT Head without and with contrast. CT angiography head and neck with contrast. 3D Postprocessing. Comparison: MR/REG/AZ/SR - MR HEAD/BRAIN WO CON - 01/11/22 21:[address]/REG/SR - CT HEAD/BRAIN WO CON - 10/29/21 14:55 EDT Findings: HEAD CT: No intra-axial mass, midline shift, hydrocephalus, or acute hemorrhage. No significant atrophy-like change or white matter disease. There is no sinus or mastoid fluid. The orbits are within normal limits. No skull fracture. HEAD AND NECK CTA: Aortic arch and cervical great vessels are patent. No stenosis or dissection. Intracranial arteries are patent. No aneurysm, dissection, or occlusion. No abnormal intracranial enhancement. The visualized thyroid gland is unremarkable. No cervical mass or fluid collection. Lung apices clear. No acute fracture. IMPRESSION: 1. Unremarkable head CT. 2. Patent head and neck CTA. This document has been electronically signed by: Colette Arenas MD on 09/11/2024 14:05:15
--- NOTE | ~2024-09-11 | MR_ITS ---
CLINICAL HISTORY: TIA like symptoms last night MR Brain without gadolinium Comparison: MR/REG/AZ/SR - MR HEAD/BRAIN WO CON - 01/11/22 21:48 EDT Findings: No restricted diffusion. No intracranial mass or hemorrhage. No midline shift. No hydrocephalus. Vascular flow voids are intact. The orbits are normal. The sinuses and mastoid air cells are clear. No focal bone lesion. IMPRESSION: No acute findings. This document has been electronically signed by: Colette Arenas MD on 09/11/2024 16:39:39
[2024-09-11 11:47] VITALS: BP 148/82; PULSE 91; RESP 18; TEMP 36.2; O2SAT 100; BMI 29.4
--- NOTE | 2024-09-11 11:55 | ECG_ITS ---
Test Reason : stroke? Blood Pressure : */* mmHG Vent. Rate : 80 BPM Atrial Rate : 80 BPM P-R Int : 134 ms QRS Dur : 94 ms QT Int : 358 ms P-R-T Axes : 51 53 42 degrees QTcB Int : 412 ms Sinus rhythm with marked sinus arrhythmia Otherwise normal ECG When compared with ECG of 01-Jul-2022 07:38, No significant change was found Referred By: María Rodriguez Electronically Signed By: ANASTACIA ARCHIBALD MD
--- NOTE | 2024-09-11 12:05 | ED_ITS ---
HPI - Neuro Symptoms/Deficit General Chief Complaint: Neuro Symptoms/Deficit Stated Complaint: possible TIA Time Seen by Provider: 09/11/24 11:55 Source: patient and old records reviewed Mode of arrival: ambulatory Limitations: no limitations History of Present Illness ED Provider: CECILIA BRICE Narrative: 34 yo female with PMH of anxiety, depression, HLD, migraines, GERD, sleeve gastrectomy, uses Mirena had a COVID like illness 1 week ago no testing but recovered. Last night was going to bed and noticed confusion and unable to get her words out at 1030pm. She also could not use her phone or call kristen for help. her left hand was tingling and weak. She has no headaches, no trauma, no neck manipulation. This episode lasted about 20 minutes or so and she couldn't get a ride here. This has never happened before. No fevers. no head traua. Onset (ago): hour(s) (1030pm yesterday) Location: speech, left arm and altered History of same: No Severity: severe Quality: weak and tingling Relieving factors: none and rest Exacerbating factors: none Context: sudden onset On Anticoagulants: No Associated symptoms: denies other symptoms Treatments Prior to Arrival: none Related Data Home Medications ?Medication ?Instructions ?Recorded ?Confirmed fluoxetine 20 mg capsule 60 mg PO DAILY 04/10/22 12/03/23 Previous Rx's ?Medication ?Instructions ?Recorded blood pressure test kit-large #1 ea 10/17/22 ([employer] Blood Pressure Monitor kit) Allergies Allergy/AdvReac Type Severity Reaction Status Date / Time sumatriptan [From IMITREX] Allergy Severe THROAT Verified 09/11/24 11:52 SWELLING metoclopramide [From REGLAN] Allergy Intermediate HEART RACES Verified 09/11/24 11:52 Review of Systems 2 Review of Systems: Constitutional : No Fever, No Chills, No Fatigue ENT/Mouth : No sore throat, No Rhinorrhea Eyes: No Eye Pain, No Swelling, No Redness Cardiovascular : No Chest Pain, No SOB, No Dyspnea on Exertion Respiratory : No Cough, No Sputum Gastrointestinal : No Nausea, No Vomiting, No Diarrhea, No abdominal Pain Genitourinary : No Dysuria, No Urinary Frequency, No Hematuria, Musculoskeletal : No joint pain, No Myalgias, No Joint Swelling Skin : No Skin Lesions, No rash Neuro : No Weakness, No Numbness, No Dizziness, no Headache Psych : No Anxiety/Panic, No Depression All other systems reviewed and are negative [facility] Past Medical History Attestation statement: The following information was validated with the patient. Source: old records reviewed Medical History Back pain Morbid obesity GERD (gastroesophageal reflux disease) Migraine headache Panic attacks Elevated cholesterol Depression Anxiety Surgical History Hx of laparoscopic partial gastrectomy History of surgery on wrist Family History Family History Mother Kidney disease Father No problems noted. Brother No problems noted. Daughter No problems noted. Social History 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 companion caregiver to a significant other at home: Yes Do you presently have visiting nurse or other home services: No Alcohol intake: current Alcohol intake frequency: holidays/special occasions only Patient Tobacco Use Status: Never used Tobacco Cigarettes Per Day: 4 Smoked in Last 30 Days: No Use of substances other than those prescribed or required for medical reasons: Yes Substance Use Type: Marijuana Substance Use Frequency: Occasionally Advance Directives: No Advance Directives Information Provided: Yes Do you have a plan to hurt others: No Plan Patient : No Physical Exam 2 Vital Signs: Vital Signs: Last Vital Signs Temp 98.1 F 09/11/24 15:28 Pulse 74 09/11/24 15:28 Resp 14 09/11/24 15:28 BP 118/77 09/11/24 15:28 Pulse Ox 100 09/11/24 15:28 O2 Del Method Room Air 09/11/24 15:28 BMI result Body Mass Index 29.4 Appearance: Alert. Oriented X3. No acute distress. Eyes: Pupils equal, round and reactive to light. ENT: Pharynx normal. Neck: Normal inspection. Neck supple. CVS: Normal heart rate and rhythm. Pulses normal. Respiratory: No respiratory distress. Breath sounds normal. Abdomen: Soft and nontender. Skin: Skin warm and dry. Normal skin color. Normal skin turgor. Extremities: No lower extremity edema. No calf ttp Neuro: Oriented X 3. No motor deficit. No sensory deficit. CN2-12 intact Course Course Course Narrative: at this point if MRI is negative would DC home on aspirin and PCP follow up Medications Administered Discontinued Medications Generic Name Dose Route Start Last Admin Trade Name Sahil PRN Reason Stop Dose Admin Aspirin 81 mg 09/11/24 16:49 09/11/24 17:06 Aspirin 81 Mg Tab.Chew PO 09/11/24 16:50 81 mg ONCE ONE Administration Iohexol 100 ml 09/11/24 13:18 09/11/24 13:18 Iohexol 350 Mg/Ml 100 Ml Infus..Btl IV 09/11/24 13:19 70 ml ONCE ONE Administration Medical Decision Making Medical Decision Making MDM Narrative: 34 yo female with PMH of anxiety, depression, HLD, migraines, GERD, sleeve gastrectomy, uses Mirena here with resolved L sided warm weakness, confusion, mild speech issues at this time will need basic labs, EKG, CTA head and neck possible TIA vs anxiety though with recent COVID illness that could be the cause of her possible clotting issue. Differential Diagnosis Differential Diagnoses: The differential diagnosis associated with the presentation includes TIA, anxiety Admission/Observation Consideration of admission/observation: Escalation of care including admission/observation considered will admit for possible TIA or neuro consult in AM Consult Healthcare Provider Management of the patient was discussed with: Hospitalist (will admit) Lab Data [facility] Lab Attestation statement: I reviewed the patient's lab results. 09/11/24 12:07 09/11/24 12:07 Labs: Lab Results 09/11/24 09/11/24 Range/Units 12:07 15:44 WBC 12.6 H (4.8-10.8) X10*3/uL RBC 4.41 (4.20-5.50) X10*6/uL Hgb 14.4 (12.0-16.0) g/dl Hct 41.8 (37.0-47.0) % MCV 94.8 (80.0-98.0) fL MCH 32.7 (27.0-33.0) pg MCHC 34.4 (31.0-35.0) g/dl RDW 12.9 (11.0-16.0) % Plt Count 460 H D (160-400) X10*3/uL MPV 9.1 L (9.4-12.3) fL Immature Gran % (Auto) 0.7 H (0.0-0.4) % Neut % (Auto) 61.0 (45-73) % Lymph % (Auto) 30.7 (20-40) % [place] % (Auto) 5.3 (2-11) % Eos % (Auto) 1.9 (0-4) % Baso % (Auto) 0.4 (0-2) % Lymph # (Auto) 3.9 (1.2-4.9) X10*3/uL [place] # (Auto) 0.7 (0.1-1.2) X10*3/uL Eos # (Auto) 0.2 (0.0-0.4) X10*3/uL Baso # (Auto) 0.1 (0.0-0.2) X10*3/uL Abs Immat Gran (auto) 0.09 H (0.00-0.03) X10*3/uL Absolute Neuts (auto) 7.7 (2.0-8.3) x10*3/uL Absolute Nucleated RBC 0.000 (0.0-0.012) X10*3/uL Nucleated RBC % (auto) 0.0 (0.0-0.2) /100WBC ESR 10 (0-20) MM/HR PT 12.0 (10.9-12.4) SEC INR 1.0 (0.9-1.1) Sodium 141 (135-145) mmol/L Potassium 4.2 (3.3-5.1) mmol/L Chloride 108 (96-108) mmol/L Carbon Dioxide 27 (22-29) mmol/L Anion Gap 10 L (12-20) BUN 14 (9-16) mg/dL Creatinine 0.69 (0.5-1.4) mg/dL Estim Creat Clear Calc 105.3 Estimated GFR > 60 Random Glucose 113 (60-115) mg/dL Calcium 9.8 (8.4-10.2) mg/dL Magnesium 2.1 (1.6-2.6) mg/dL Total Bilirubin 0.4 (0.0-1.0) mg/dL Direct Bilirubin 0.1 (0.0-0.5) mg/dL AST 17 (5-31) U/L ALT 14 (0-31) U/L Alkaline Phosphatase 82 (39-117) U/L Troponin I High Sens < 2.7 (<3.5-17.0) ng/L C-Reactive Protein 0.20 (< or = 0.50) mg/dL Total Protein 7.6 (6.5-8.0) g/dL Albumin 4.2 (3.5-5.0) g/dL Beta HCG, Quant < 2 mIU/mL Urine Opiates Screen Not Detected (Not Detect) Ur Buprenorphine Scrn Not Detected (Not Detect) ng/mL Ur Oxycodone Screen Not Detected (Not Detect) ng/mL Urine Methadone Screen Not Detected (Not Detect) ng/mL Urine Fentanyl Screen Not Detected (Not Detect) Ur Barbiturates Screen Not Detected (Not Detect) Ur Phencyclidine Scrn Not Detected (Not Detect) Ur Amphetamines Screen Not Detected (Not Detect) U Benzodiazepines Scrn Not Detected (Not Detect) Urine Cocaine Screen Not Detected (Not Detect) U Marijuana (THC) Screen POSITIVE H (Not Detect) Influenza Type A (PCR) NEGATIVE (Negative) Influenza Type B (PCR) NEGATIVE (Negative) RSV RNA Qual (PCR) NEGATIVE (Negative) SARS-CoV-2 RNA (RT-PCR) NEGATIVE (Negative) Independent Interpretation I performed an independent interpretation of an: EKG and CT Scan (no signs of stroke) Interpretation: Rate: 80 Rhythm: NSR [place]: normal Normal P waves. Normal PINKY. Normal QRS complex. ST T wave : inverted t wave V1, no LEANDER qTC: 412 prior studies: no acute ischemia The study has been interpreted contemporaneously by me. . Radiology Impression Discussion of test interpretation with radiology: I have reviewed the radiologist's reading. Independent Historian Clinical information obtained from an independent historian. History obtained from or confirmed by: Parent External Record Review External record reviewed: Outpatient record NIH Stroke Scale Internal: Initial- Upon Arrival Level of Consciousness: Alert Level of Consciousness Questions: Answers both questions correctly Level of Consciousness Commands: Performs both tasks correctly Best Gaze: Normal Visual: No visual loss Facial Palsy: Normal Motor Arm (Right): No drift Motor Arm (Left): No drift Motor Leg (Right): No drift Motor Leg (Left): No drift Limb Ataxia: Absent Sensory: Normal Best Language: No aphasia Dysarthia: Normal Extinction and Inattention: No abnormality Score: 0 Discharge Plan Discharge Clinical Impression: Weakness Patient Disposition: Admitted As Inpatient Print Language: Persian
[2024-09-11 12:14] LABS: MANUAL DIFF FLAG NO
[2024-09-11 12:15] LABS: Basophils Absolute Auto 0.1 X10*3/uL (0.0-0.2); Basophils Percent Auto 0.4 % (0-2); Eosinophils Absolute Auto 0.2 X10*3/uL (0.0-0.4); Eosinophils Percent Auto 1.9 % (0-4); Hematocrit 41.8 % (37.0-47.0); Hemoglobin 14.4 g/dl (12.0-16.0); Imm Gran Abs Auto 0.09 X10*3/uL (0.00-0.03); Imm Gran Pct Auto 0.7 % (0.0-0.4); Lymphocytes Absolute Auto 3.9 X10*3/uL (1.2-4.9); Lymphocytes Percent Auto 30.7 % (20-40); Mean Corpuscular HGB Conc 34.4 g/dl (31.0-35.0); Mean Corpuscular Hemoglobin 32.7 pg (27.0-33.0); Mean Corpuscular Volume 94.8 fL (80.0-98.0); Mean Platelet Volume 9.1 fL (9.4-12.3); Monocytes Absolute Auto 0.7 X10*3/uL (0.1-1.2); Monocytes Percent Auto 5.3 % (2-11); Neutrophils Absolute Auto 7.7 x10*3/uL (2.0-8.3); Platelet Count 460 X10*3/uL (160-400); Red Blood Count 4.41 X10*6/uL (4.20-5.50); Red Cell Distribution Width 12.9 % (11.0-16.0); White Blood Count 12.6 X10*3/uL (4.8-10.8)
--- OUTSIDE RECORDS SUMMARY | 2024-09-11 12:34 | XMS_ITS | Patient Health Record ---
Author Organization [facility] Address [address] [place] [id number] Care Team Providers Care Bus Cleaner Name Role Phone Sarah NAVARRO, Esdras Primary Care Provider Andrew Hickman Jr Unavailable ALLERGIES No Known Allergies REASON FOR REFERRAL No Information MEDICATIONS Medication SIG (Take, Route, Frequency, Duration) Notes Start Date End Date Status Omeprazole 40 MG TAKE 1 CAPSULE BY [facility] EVERY DAY 30 MINUTES BEFORE MORNING MEAL FOR 30 DAYS for 90 Active busPIRone HCl Active Topiramate 25 MG Oral for 30 A ctive hydrOXYzine HCl 25 MG Oral for 20 Active Apri Active Dicyclomine HCl 20 MG 1 tablet Orally 2- 4 times a day 11/28/2016 Active MiraLax (colon prep) 17 GM/SCOOP mixed with Gatorade or Crystal Light Orally begin at 5:00 p.m. the day before the procedure for 1 day 03/18/2022 Active MiraLax (colon prep) 17 GM/SCOOP mixed with Gatorade or Crystal Light Orally begin at 5:00 p.m. the day before the procedure for 1 day 03/18/2022 Active Pentasa 500 MG 2 capsules Orally Th ree times a day for 30 day(s) 04/23/2022 Active OLANZapine 2.5 MG Oral for 30 Active Dicyclomine HCl 20 MG 1 tablet Orally 2- 4 times a day 03/18/2022 Active Dulcolax (colon prep) 5 MG take at 3:00 p.m and 7:00p.m. Orally two tablets twice a day for one day for 1 day 03/18/2022 Active FLUoxetine HCl 60 MG 1 capsule Orally On ce a day Active IMMUNIZATIONS Vaccine Route Administration Date Status Comme nts Influenza Unknown 03/18/2022 Refused SOCIAL HISTORY Sex Assigned At : Social History Observation Description Sex Assigned At Unknown PROBLEMS Problem Type ICD Code Onset Dates Problem Status W/U Status Risk SNOMED Code Notes Problem Colon cancer screening (Z12.11) Active confirmed 522903503 Problem Personal history of colonic polyps (Z86.010) Active confirmed 443235429 Problem Diarrhea, unspecified type (R19.7) Active confirmed 64079098 Problem Gastroesophageal reflux disease, unspecified whether esophagitis present (K21.9) Active confirmed [id number] PLAN OF TREATMENT Pending Test Test Name Order Date XR GI SMALL BOWEL SERIES 07/23/2013 Future Test Test Name Order Date COLONOSCOPY 11/28/2016 COLONOSCOPY 03/18/2022 Insurance Providers Payer Name Payer Address Payer Phone Subscriber Number Group Number Insured Name Patient Relationship to Insured Coverage Start Date Coverage End Date [facility] [address] [address] [place], [place] [id number] TAMRA OJEDA Self - patient is the insured MEDICAL (GENERAL) HISTORY Medical History History ICD Code polycystic ovaries cholesterol anxiety/panic attacks Dizziness Migraine headaches Surgical History Surgery Date(Month/Year) wrist surgery
--- OUTSIDE RECORDS SUMMARY | 2024-09-11 12:34 | XMS_ITS | Encounter Summary ---
Author Organization [facility] Address [address] [place] [address] Care Team Providers Care Carbonation Equipment Tender Name Role Phone Esdras Smith MD Primary Care Provider [phone] Encounter Details Date Type Department Care Team Description 08/20/2022 Balance Engineer Report Medical Records [address] [place] [id number] Abstract, Provider Social History Tobacco Use Types Packs/Day Years Used Date Smoking Tobacco: Every Day Cigarettes 0.3 14 Last attempted to quit: 01/28/2017 Smokeless Tobacco: Never Alcohol Use Standard Drinks/Week Comments Yes 0 (1 standard drink = 0.6 oz pur e alcohol) rare Sex Assigned at Date Recorded Female 03/17/2024 1:31 PM E [employer] Job Start Date Occupation Industry Not on file Not on file Not on file documented as of this encounter Plan of Treatment Not on file documented as of this encounter Visit Diagnoses Not on filedocumented in this encounter Care Teams Carbonation Equipment Tender Relationship Specialty Start Date End Date Esdras Smith MD [address] [place] [id number] PCP - General Internal Medicine 02/28/21 documented as of this encounter
--- OUTSIDE RECORDS SUMMARY | 2024-09-11 12:34 | XMS_ITS | Encounter Summary ---
[facility] Organization [facility] Address [address] [place] [address] Care Team Providers Care Jet Blade Polisher Name Role Phone Patricia Esparza DO Primary Care Pro vider Unavailable Esdras Smith MD Primary Care Provider [phone] Encounter Details Date Type Department Care Team Description 02/15/2017 Release of Information Medical Records [address] [place] [id number] Abstract, Provider Social History Tobacco Use Types Packs/Day Years Used Date Smoking Tobacco: Former Cigarettes 2 Q uit: 01/28/2017 Smokeless Tobacco: Never Comments:quit october 23 2014 Alcohol Use Standard Drinks/Week Comments Yes 0 [...] on filedocumented in this encounter Care Teams Jet Blade Polisher Relationship Specialty Start Date End Date Patricia Esparza DO PCP - General Internal Medicine 11/01/15 02/27/21 Esdras Smith MD [address] [place] [address] [phone] PCP - General Internal Medicine 02/28/21 documented as of this encounter
--- OUTSIDE RECORDS SUMMARY | 2024-09-11 12:34 | XMS_ITS | Encounter Summary ---
Author Organization [facility] Address [address] [place] [address] Care Team Providers Care Sap Bpc Developer Name Role Phone Esdras Smith MD Primary Care Provider [phone] Reason for Visit * Reason Comments E-prescribe Rx Request Encounter Details Date Type Department Care Team Description 02/03/2023 Refill Adult Medicine [facility] [address] [place] [address] [phone] Esdras Smith MD [address] [place] [address] [phone] E-prescribe Rx Request Social History Tobacco Use Types Packs/Day Years Used Date Smoking Tobacco: Every Day Cigarettes 0.3 14 Last attempted to quit: 01/28/2017 Smokeless Tobacco: Never Comments:Trying to quit ciga rettes only 3 per month,vapes daily/nicotine Alcohol Use Standard Drinks/Week Comments Yes 0 (1 standard drink = 0.6 oz pur e alcohol) rare Sex Assigned at Date Recorded Female 03/17/2024 1:31 PM E DT Job Start Date Occupation Industry Not on file Not on file Not on file COVID-19 Exposure Response Date Recorded In the last 10 days, have yo u been in contact with someone who was confirmed or suspected to have Coronavirus/COVID-19? No / Unsure 01/08/2023 9:11 AM EDT documented as of this encounter Miscellaneous Notes * Telephone Encounter - Mila Acevedo M.A. - 02/04/2023 11:47 AM EDT Lab Results Component Value Date NA 136 11/08/2022 K 4.2 11/08/2022 CO2 27 11/08/2022 CL 105 11/08/2022 BUN 10 11/08/2022 CREAT 0.72 11/08/2022 GLU 88 11/08/2022 CA 9.4 11/08/2022 GFR 112 11/08/2022 Pending appt 04/02/23 Last appt 11/07/22 * Telephone Encounter - Puja Ramirez - 02/04/2023 11:43 AM EDT Patient would like script to be: E-PRESCRIBED/FAXED TO PHARMACY WHEN WAS THE PATIENT'S LAST APPOINTMENT IN ADULT MEDICINE? 11/07/22 WHEN WAS THE LAST TIME THE PATIENT SAW THEIR PCP? 02/25/22 Does patient have an upcoming appointment? Yes 04/02/23 Luda (THE MEDICATION REQUESTED IS ON THE MED LIST ABOVE) All of the medications requested were on the CURRENT MEDS list Did you check the Pharmacy information above?: YES Patient wants: 90 -day supply Is this a mail order prescription request ? NO If the refill is from a FAXED refill request what is the RX # listed on the fax? N/A Patients current insurance carrier is: Payor: [facility] FFS / Plan: [facility] / Product Type: MEDICAID RISK documented in this encounter Plan of Treatment Not on file documented as of this encounter Visit Diagnoses Not on filedocumented in this encounter Care Teams Sap Bpc Developer Relationship Specialty Start Date End Date Esdras Smith MD [address] [place] [id number] PCP - General Internal Medicine 02/28/21 documented as of this encounter
--- OUTSIDE RECORDS SUMMARY | 2024-09-11 12:34 | XMS_ITS | Clinical Summary ---
Author Organization [facility] Address [address] [place] [address] Care Team Providers Care Hair Machine Operator Name Role Phone Esdras Smith MD Primary Care Provider [phone] Allergies Active Allergy Reactions Criticality Noted Date Comments Metoclopramide Hcl 04/20/2016 Sumatriptan 12/21/2013 Harwood like throat was 'closing up Medications Medication Sig Dispensed Refills Start Date End Date Status ibuprofen (ADVIL,MOTRIN) 800 mg tablet Take 1 Tablet by mouth 3 times daily as needed for Pain for up to 30 days. 01/08/2022 Active Active Problems Problem Noted Date Diagnosed Date Anxiety 08/06/2024 Meningitis 08/06/2024 Ovarian cyst, complex 05/05/2024 Overview (08/06/2024): Found on transvaginal ultrasound done in emergency room at [facility] 03/16/24 Cyst measured 2.8 cm Patient follow-up with SALES [employer]PRES[employer] on 05/04/24 Hyperhidrosis 01/06/2019 Mid back pain 01/06/2019 Neck pain 01/06/2019 Right-sided low back pain with right-sided sciat ica 01/06/2019 Elevated blood pressure reading 05/20/2018 Allergic rhinitis due to allergen 12/08/2017 Gastroesophageal reflux disease without esophagi tis 12/08/2017 Severe obesity (BMI 35.0-39.9) with comorbidity 12/08/2017 Anovulatory cycle 04/01/2017 PCOS (polycystic ovarian syndrome) 04/01/2017 Elevated white blood cell count 11/16/2013 Encounters Date Type Department Care Team Description 08/05/2024 Telephone Adult Medicine [address] [phone] Esdras Smith MD Ankle Pain; triage from Last 3 Months Immunizations Name Administration Dates Next Due Influenza Quadravalent, MDCK , 0.5ml, with preservative (Flucelvax) 6mo and older 08/22/2020 Influenza trivalent, 0.5mL, preservative free (Fluarix; FluLaval; Fluzone) ages 6mo and older (Afluria) 3 years and older 09/16/2016 PPD Test 08/28/2016 Rabies Vaccine, For Intramus cular Injection Retired Code 09/10/2019 Tdap Tetanus diptheria acell ular pertussis (Boostrix; Adacel) 7yo and older 02/28/2015 Surgical History Surgery Date Site/Laterality Comments OTHER SURGICAL HISTORY PROCEDURE: [facility] WRST EXC&/RPR TRIANG FIBROCART&/JOINT COLONOSCOPY PROCEDURE: [facility] COLONOSCOPY STOMA DX INCLUDING COLLJ SPEC SPX UPPER GASTROINTESTINAL ENDOSCOPY 11/17/2015 PROCEDURE: UPPER GI ENDOSCOPY/EXAM; COMMENT: [facility] COLONOSCOPY 2022 PROCEDURE: HISTORICAL COLONOSCOPY; COMMENT: divericulosis Medical History Medical History Date Comments Elevated white blood cell count DX:Elevated white blood cell count; COMMENT: Followed Dr. Dhaliwal at [facility] Stomach pain DX:Stomach pain; COMMENT: ongoing followed by Dr. Elizalde, ? Chron's Anxiety DX:Anxiety Meningitis DX:Meningitis; C OMMENT: as a teenager ? viral Tobacco abuse DX:Tobacco abuse ; COMMENT: quit 01/16/17 Gastritis DX:Gastritis History of colonoscopy 02/07/2017 DX:Histor y of colonoscopy; COMMENT: dr elizalde, ileitis, diverticulosis PCOS (polycystic ovarian syndrome) DX:PCOS (polycystic ovarian syndrome); COMMENT: [facility] 2013 Family History Medical History Relation Name Comments Bladder Cancer Maternal Grandfather Colon cancer Maternal Grandfather Other: CLL Maternal Grandfather Other: Connective tissue lung cancer Maternal Grandfat her Nephrolithiasis Mother Other: CKD Mother Other: Heart Disease Mother Other: Valvluar Diseas Mother Other: cystitis Mother copd, htn Breast cancer Neg Hx Ovarian cancer Neg Hx Relation Name Status Comments Father Alive Maternal Grandfather Mother Alive Social History Tobacco Use Types Packs/Day Years Used Date Smoking Tobacco: Every Day Cigarettes Last attempted to quit: 01/28/2017 Smokeless Tobacco: Never Alcohol Use Standard Drinks/Week Comments Yes 0 (1 standard drink = 0.6 oz pur e alcohol) Sex and Gender Information Value Date Recorded Sex Assigned at Not on file Gender Identity Not on file Sexual Orientation Not on file Obstetrics History Last Filed Vital Signs Vital Sign Reading Time Taken Comments Blood Pressure 119/84 06/02/2024 3:40 PM EDT Pulse 76 06/02/2024 3:40 PM EDT Temperature - - Respiratory Rate - - Oxygen Saturation - - Inhaled Oxygen Concentration - - Weight 76.2 kg (168 lb) 06/02/2024 3:40 PM EDT Height 157.5 cm (5' 2 ) 06/02/2024 3:40 PM EDT Body Mass Index 30.73 06/02/2024 3:40 PM EDT Plan of Treatment Health Maintenance Due Date Last Done Comments Pneumococcal Vaccine: Pediatrics (0 to 5 Years) and At-Risk Patients (6 to 64 Years) (1 of 2 - PCV) 1994 Hepatitis B Vaccines (1 of 3 - 19+ 3-dose series) 2007 Depression Screening 07/27/2022 Social Influencers of Health Screening 07/27/2022 Cholesterol Screening (Lipid Panel) 05/28/2023 05/28/2018 COVID-19 Vaccine (3 - 2023-2 5 season) 2024 03/27/2022, 11/27/2020 Influenza Vaccine (#1) 2024 , 09/16/2016 DTaP,Tdap,and Td Vaccines (2 - Td or Tdap) 02/28/2025 02/28/2015 Cervical Cancer Screening: HPV 01/09/2028 01/08/2023 HIV Screening Completed 05/05/2024, 05/05/2024 Hepatitis C Screening Completed 05/05/2024 HIB Vaccines Aged Out No longer eligi ble based on patient's age to complete this topic HPV Vaccines Aged Out No longer eligi ble based on patient's age to complete this topic Hepatitis A Vaccines Aged Out No long er eligible based on patient's age to complete this topic IPV Vaccines Aged Out No longer eligi ble based on patient's age to complete this topic MMR Vaccines Aged Out No longer eligi ble based on patient's age to complete this topic Meningococcal ACWY Vaccine Aged Out N o longer eligible based on patient's age to complete this topic RSV Immunization Patients Under 20 months Aged Out No longer eligible b ased on patient's age to complete this topic Varicella Vaccines Aged Out No longer eligible based on patient's age to complete this topic Procedures Procedure Name Priority Date/Time Associated Diagnosis Comments HEPATITIS C SCREENING Routine 05/05/2024 HIV SCREENING Routine 05/05/2024 HPV Routine 01/08/2023 LIPID PANEL Routine 05/28/2018 from Last 3 Months or Most Recently Relevant to Health Maintenance Results * HIV Screening (05/05/2024) Pathologist [facility] HIV Screening abstracted Historical Provider MD BRENDA TOBAR E * Hepatitis C Screening (05/05/2024) Pathologist [facility] Hepatitis C Screening abstracted Historical Provider MD BRENDA TOBAR E * Cervical Cancer Screening: HPV (01/08/2023) Pathologist [facility] Cervical Cancer Screening: HPV normal,abs tracted Historical Provider MD BRENDA TOBAR E * (ABNORMAL) Lipid panel (05/28/2018) Pathologist [facility] LDL/HDL Ratio 6(A) 0 - 4 Triglycerides 158(A) 0 - 150 mg/dL Cholesterol 212(A) 200 mg/dL HDL 37(A) 40 mg/dL LDL Cholesterol 144(A) 0 - 100 mg/dL Blood Venous blood specimen / Unknown Historical Provider LAB BLOOD ORDERAB LES from Last 3 Months or Most Recently Relevant to Health Maintenance Care Teams Hair Machine Operator Relationship Specialty Start Date End Date Esdras Smith MD [address] [place] [address] PCP - General Internal Medicine 02/28/21
--- OUTSIDE RECORDS SUMMARY | 2024-09-11 12:34 | XMS_ITS | Encounter Summary ---
Author Organization [facility] Address [address] [place] [address] Care Team Providers Care Rawhide Bone Roller Name Role Phone Esdras Smith MD Primary Care Provider [phone] Reason for Visit * Reason Comments E-prescribe Rx Request Encounter Details Date Type Department Care Team Description 08/03/2022 Refill Adult Medicine [facility] [address] [place], [place] [phone] Esdras Smith MD [address] [place] [address] [phone] E-prescribe Rx Request Social History Tobacco Use [...] on file documented as of this encounter Miscellaneous Notes * Telephone Encounter - Emelia Avitia L.P.N. - 09/24/2022 9:13 AM EST Pt has appt 09/25/22 * Telephone Encounter - Karly Sierra M.A. - 09/23/2022 11:37 AM EST Last office visit 04/23/22 Next office visit 09/25/22 with Desean Mao Last filled on 07/04/22 for 30 tabs. Do you want to wait until pt is seen? Lab Results Component Value Date ALB 4.0 03/07/2020 SGOT 13 03/07/2020 SGPT 22 03/07/2020 TBILI 0.3 03/07/2020 ALKPHOS 120 03/07/2020 TP 7.8 03/07/2020 * Telephone Encounter - Ale Mcwilliams - 09/23/2022 11:04 AM EST APPOINTMENT ON 09/25/2022 WITHF NATHAN MAO. * Telephone Encounter - Emelia Avitia L.P.NMaryellen - 09/10/2022 2:36 PM EST Mailbox is full * Telephone Encounter - Karly Sierra M.A. - 08/06/2022 4:16 PM EST Last office visit 04/23/22 Pt canceled appt with PCP for 08/07/22. Needs to reschedule before we can process * Telephone Encounter - Jeannette Engle - 08/06/2022 3:25 PM EST Patient would like script to be: E-PRESCRIBED/FAXED TO PHARMACY WHEN WAS THE PATIENT'S LAST APPOINTMENT IN ADULT MEDICINE? 04-23-22 WHEN WAS THE LAST TIME THE PATIENT SAW THEIR PCP? 02-25-22 Does patient have an upcoming appointment? Patient was sent a My Chart request to set up an appointment as they are due. (THE MEDICATION REQUESTED IS ON THE MED LIST ABOVE) All of the medications requested were on the CURRENT MEDS list Did you check the Pharmacy information above?: YES Patient wants: 30 -day supply Is this a mail order prescription request ? NO If the refill is from a FAXED refill request what is the RX # listed on the fax? N/A Patients current insurance carrier is: Payor: [facility] [employer] [facility] FFS / Plan: [facility] / Product Type: MEDICAID RISK documented in this encounter Plan of Treatment Not on file documented as of this encounter Visit Diagnoses Not on filedocumented in this encounter Care Teams Rawhide Bone Roller Relationship Specialty Start Date End Date Esdras Smith MD [address] [place] [phone] PCP - General Internal Medicine 02/28/21 documented as of this encounter
--- OUTSIDE RECORDS SUMMARY | 2024-09-11 12:34 | XMS_ITS | Encounter Summary ---
Author Organization [facility] Address [address] [place] [address] Care Team Providers Care Shim Plug Cutter Name Role Phone Esdras Smith MD Primary Care Provider [phone] Encounter Details Date Type Department Care Team Description 04/05/2022 Iron Worker Apprentice Report Medical Records [address] [place] [phone] Opal Mercado Social History Tobacco Use Types Packs/Day Years [...] on filedocumented in this encounter Care Teams Shim Plug Cutter Relationship Specialty Start Date End Date Esdras Smith MD [address] [place], [place] [phone] PCP - General Internal Medicine 02/28/21 documented as of this encounter
--- OUTSIDE RECORDS SUMMARY | 2024-09-11 12:34 | XMS_ITS | Encounter Summary ---
Author Organization [facility] Address [address] [place] [address] Care Team Providers Care Synchronous Motor Assembler Name Role Phone Esdras Smith MD Primary Care Provider [phone] Encounter Details Date Type Department Care Team Description 03/18/2022 Hot Saw Helper Report Medical Records [address] [place] [phone] Andrew Arenas MD Social History Tobacco Use Types Packs/Day Years [...] Recorded In the last 10 days, have destini martinez been in contact with someone who was confirmed or suspected to have Coronavirus/COVID-19? No / Unsure 02/25/2022 10:20 AM EDT documented as of this encounter Plan of Treatment Not on file documented as of this encounter Visit Diagnoses Not on filedocumented in this encounter Care Teams Synchronous Motor Assembler Relationship Specialty Start Date End Date Esdras Smith MD [address] [place] [address] PCP - General Internal Medicine 02/28/21 documented as of this encounter
--- OUTSIDE RECORDS SUMMARY | 2024-09-11 12:34 | XMS_ITS | Encounter Summary ---
Author Organization [facility] Address [address] [place] [address] Care Team Providers Care Superintendent Car Construction Name Role Phone Patricia Esparza DO Primary Care Pro vider Unavailable Esdras Smith MD Primary Care Provider [phone] Reason for Visit * Reason Onset Date Comments Cough 11/02/2015 Encounter Details Date Type Department Care Team Description 11/02/2015 Telephone Adult Medicine [address] [address] Patricia Esparza DO Cough Social History Tobacco Use Types Packs/Day Years Used Date Smoking Tobacco: Every Day Smokeless Tobacco: Never Comments:smokes 3 cigs per d ay Alcohol Use Standard Drinks/Week Comments Yes 0 (1 standard drink = 0.6 oz pur e alcohol) rare Sex Assigned at Date Recorded Female 03/17/2024 1:31 PM E DT Job Start Date Occupation Industry Not on file Not on file Not on file documented as of this encounter Miscellaneous Notes * Telephone Encounter - Wilda Elizalde - 11/02/2015 1:48 PM EDT Patient very upset /still waiting for call back * Telephone Encounter - Lori Jane R.N. - 11/02/2015 1:43 PM EDT Pt was treated for asthmatic bronchitis 10/20. Called 3 days later stating she was vomiting ( blood in emesis) weak and dizzy, not voiding, was sent to the ed, was admitted, came into urgent care on 10/28 pale diaphoretic and tachycardic, was sent back to the ed and was admitted , called yesterday andstates she was discharged but felt worse, dizzy, vomiting and having increasing pain, was advised to go back to the ed, Pt needs a hospital f/i, has called her gi doctor too to see if she can see that office sooner, will call pt to get her in for hospital f/u with dr Patricia Wheeler * Telephone Encounter - Ale Mcwilliams - 11/02/2015 11:06 AM EDT Symptoms patient is presenting: FEVER COUGH CHEST BACK UNDER BREAST BONE PAIN SWEATING AND VOMINTG. If pain or injury related was it due to an accident at work or from a motor vehicle accident? NO If yes, gather 3rd democrat insurance information Date of accident/Injury: How long has patient had these symptoms?: 3 WEEKS PCP: Patricia Wheeler Payor: [employer] FFS / Plan: FFS HMO $0 [employer] [id number] / Product Type: MEDICAID RISK documented in this encounter Plan of Treatment Not on file documented as of this encounter Visit Diagnoses Not on filedocumented in this encounter Care Teams Superintendent Car Construction Relationship Specialty Start Date End Date Patricia Esparza DO PCP - General Internal Medicine 11/01/15 02/27/21 Esdras Smith MD [address] [place] [address] PCP - General Internal Medicine 02/28/21 documented as of this encounter
--- OUTSIDE RECORDS SUMMARY | 2024-09-11 12:34 | XMS_ITS | Encounter Summary ---
Author Organization [facility] Address [address] [place] [address] Care Team Providers Care Fashion Patternmaker Name Role Phone Esdras Smith MD Primary Care Provider [phone] Reason for Visit * Reason Onset Date Comments Ankle Pain 08/05/2024 triage 08/05/2024 Encounter Details Date Type Department Care Team (Late st Contact Info) Description 08/05/2024 Telephone Adult Medicine [facility] [address] [place] [address] Esdras Smith MD [address] [place] [address] Ankle Pain; triage Social History Tobacco Use Types Packs/Day Years Used Date Smoking Tobacco: Every Day Cigarettes Last attempted to quit: 01/28/2017 Smokeless Tobacco: Never Alcohol Use Standard Drinks/Week Comments Yes 0 (1 standard drink = 0.6 oz pur e alcohol) Sex and Gender Information Value Date Recorded Sex Assigned at Not on file Gender Identity Not on file Sexual Orientation Not on file documented as of this encounter Progress Notes * Lori Jane RN - 08/05/2024 2:36 PM EST Pt has pain in left leg , she has had this pain which started today, no known injury increased painall day Pt has no chest pain or SOB, has not been ill and has not had any N/V/D or fever, she has no other joint pains, both hips and left ankle and mathur are painful, no swelling or redness, denies any redness or pain in calves, 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 no If YES to any of these above symptoms, send a message to triage and do not book. Red dot. If no, an audio or video visit should be booked. Have you had close contact with someone with Coronavirus in the last 14 days? no Have you traveled abroad? no Have you traveled recently to another state outside of [place], [place], [place], [place], [place], [place], [place]? no o If yes, did you quarantine for 14 days or have a negative covid test? no If yes to any of the above, patient is not to be scheduled in office until after 14 day quarantine or negative covid test. If pain or injury related was it due to an accident at work or from a motor vehicle accident? If yes, date of accident/Injury: No If yes, gather 3rd constitution party insurance information Third Democrat Information: not applicable PCP: Esdras Smith MD Payor: / No coverage found. documented in this encounter Plan of Treatment Not on file documented as of this encounter Visit Diagnoses Not on filedocumented in this encounter Care Teams Fashion Patternmaker Relationship Specialty Start Date End Date Esdras Smith MD [address] [place] [address] PCP - General Internal Medicine 02/28/21 documented as of this encounter
--- OUTSIDE RECORDS SUMMARY | 2024-09-11 12:34 | XMS_ITS | Encounter Summary ---
Author Organization [facility] Address [address] [place] [address] Care Team Providers Care Assembly Supervisor Name Role Phone Patricia Esparza DO Primary Care Pro vider Unavailable Lorraine Smiley DO Primary Care Provider Unava ilable Patricia Esparza DO Primary Care Pro vider Unavailable [facility] Primary Care Provider Esdras Barnes MD Primary Care Provider [phone] Encounter Details Date Type Department Care Team Description 01/12/2014 Pt. Non Urgent Medic al Question Adult Medicine [address] [address] Patricia Esparza DO Social History Tobacco Use Types Packs/Day Years [...] on filedocumented in this encounter Care Teams Assembly Supervisor Relationship Specialty Start Date End Date Patricia Esparza DO PCP - General Internal Medicine 06/23/13 10/16/15 Lorraine Smiley DO PCP - General Internal Medicine 10/28/15 10/31/15 Patricia Esparza DO PCP - General Internal Medicine 11/01/15 02/27/21 [facility], Pcp PCP - General Internal Medicine 10/17/15 10/27/15 Esdras Smith MD [address] [place] [address] PCP - General Internal Medicine 02/28/21 documented as of this encounter
--- OUTSIDE RECORDS SUMMARY | 2024-09-11 12:34 | XMS_ITS | Encounter Summary ---
Author Organization [facility] Address [address] [facility] [place] [address] Care Team Providers Care Neon Sign Servicer Name Role Phone Esdras Smith MD Primary Care Provider [phone] Encounter Details Date Type Department Care Team Description 10/03/2023 Hebrew Teacher Report Medical Records [address] [place] [id number] Abstract, Provider Social History Tobacco Use Types [...] on filedocumented in this encounter Care Teams Neon Sign Servicer Relationship Specialty Start Date End Date Esdras Smith MD [address] [place] [address] [phone] PCP - General Internal Medicine 02/28/21 documented as of this encounter
--- OUTSIDE RECORDS SUMMARY | 2024-09-11 12:34 | XMS_ITS | Encounter Summary ---
Author Organization [facility] Address [address] [place] [address] Care Team Providers Care Paleobotanist Name Role Phone Patricia Esparza DO Primary Care Pro vider Unavailable Lorraine Smiley DO Primary Care Provider Unava ilable Patricia Esparza DO Primary Care Pro vider Unavailable [facility], [facility] Primary Care Provider Esdras Barnes MD Primary Care Provider [phone] Encounter Details Date Type Department Care Team Description 12/21/2013 Pt. Non Urgent Medic al Question Adult Medicine [address] [address] Patricia Esparza DO Social History Tobacco Use [...] as of this encounter Progress Notes * Sultana Novak L.P.N. - 12/21/2013 3:21 PM EDTFrom: KEO SAUCEDOANN MARIE Susanna To: Patricia Heart DO Sent: FriDecember 21, 2013 3:15 PM Subject: xray They called me back. Insurance company requested more info so she sent it to them and she's waitingto hear back. documented in this encounter Plan of Treatment Not on file documented as of this encounter Visit Diagnoses Not on filedocumented in this encounter Care Teams Paleobotanist Relationship Specialty Start Date End Date Patricia Esparza DO PCP - General Internal Medicine 06/23/13 10/16/15 Lorraine Smiley DO PCP - General Internal Medicine 10/28/15 10/31/15 Patricia Esparza DO PCP - General Internal Medicine 11/01/15 02/27/21 [facility], Pcp PCP - General Internal Medicine 10/17/15 10/27/15 Esdras Smith MD [address] [place] [address] PCP - General Internal Medicine 02/28/21 documented as of this encounter
--- OUTSIDE RECORDS SUMMARY | 2024-09-11 12:34 | XMS_ITS | Encounter Summary ---
Author Organization [facility] Address [address] [place] [address] Care Team Providers Care Business Control Manager Name Role Phone Patricia Esparza DO Primary Care Pro vider Unavailable Lorraine Smiley DO Primary Care Provider Unava ilable Patricia Esparza DO Primary Care Pro vider Unavailable [facility], Pcp Primary Care Provider Esdras Barnes MD Primary Care Provider [phone] Encounter Details Date Type Department Care Team Description 11/24/2014 Night Triage Doc Medical Records [address] [place] [id number] Abstract, Provider Social History Tobacco Use Types [...] on filedocumented in this encounter Care Teams Business Control Manager Relationship Specialty Start Date End Date Patricia Esparza DO PCP - General Internal Medicine 06/23/13 10/16/15 Lorraine Smiley DO PCP - General Internal Medicine 10/28/15 10/31/15 Patricia Esparza DO PCP - General Internal Medicine 11/01/15 02/27/21 [facility] Pcp PCP - General Internal Medicine 10/17/15 10/27/15 Esdras Smith MD [address] [place], [place] [id number] PCP - General Internal Medicine 02/28/21 documented as of this encounter
--- OUTSIDE RECORDS SUMMARY | 2024-09-11 12:34 | XMS_ITS | Encounter Summary ---
Author Organization [facility] Address [address] [place] [address] Care Team Providers Care Staffing Associate Name Role Phone Esdras Smith MD Primary Care Provider [phone] Encounter Details Date Type Department Care Team Description 10/30/2022 Walk In Clinic Visit Medical Records [address] [place] [address] Abstract, Provider Social History Tobacco Use Types [...] on filedocumented in this encounter Care Teams Staffing Associate Relationship Specialty Start Date End Date Esdras Smith MD [address] [place] [id number] PCP - General Internal Medicine 02/28/21 documented as of this encounter
--- OUTSIDE RECORDS SUMMARY | 2024-09-11 12:34 | XMS_ITS | Encounter Summary ---
Author Organization [facility] Address [address] [place] [address] Care Team Providers Care Hobber Name Role Phone Patricia Esparza DO Primary Care Pro vider Unavailable Esdras Smith MD Primary Care Provider [phone] Encounter Details Date Type Department Care Team Description 11/28/2016 Medicaid Analyst Report Medical Records [address] [place] [address] Andrew Arenas MD Social History Tobacco Use Types Packs/Day Years Used Date Smoking Tobacco: Every Day Cigarettes 2 Smokeless Tobacco: Never Comments:quit october 23 2014 [...] on filedocumented in this encounter Care Teams Hobber Relationship Specialty Start Date End Date Patricia Esparza DO PCP - General Internal Medicine 11/01/15 02/27/21 Esdras Smith MD [address] [place] [address] PCP - General Internal Medicine 02/28/21 documented as of this encounter
--- OUTSIDE RECORDS SUMMARY | 2024-09-11 12:34 | XMS_ITS | Encounter Summary ---
Author Organization [facility] Address [address] [place] [address] Care Team Providers Care Boom Crane Operator Name Role Phone Esdras Smith MD Primary Care Provider [phone] Encounter Details Date Type Department Care Team Description 07/29/2022 Sql Dba Report Medical Records [address] [place] [address] Fitz Mukherjee MD Social History Tobacco Use Types Packs/Day [...] on filedocumented in this encounter Care Teams Boom Crane Operator Relationship Specialty Start Date End Date Esdras Smith MD [address] [place], [place] [phone] PCP - General Internal Medicine 02/28/21 documented as of this encounter
--- OUTSIDE RECORDS SUMMARY | 2024-09-11 12:34 | XMS_ITS | Encounter Summary ---
Author Organization [facility] Address [address] [place] [address] Care Team Providers Care Rn Procedures Name Role Phone Esdras Smith MD Primary Care Provider [phone] Encounter Details Date Type Department Care Team Description 09/03/2023 Beater Dumper Report Medical Records [address] [place] [address] Daniel Castro [address] [place] [address] Social History Tobacco Use Types Packs/Day Years [...] on filedocumented in this encounter Care Teams Rn Procedures Relationship Specialty Start Date End Date Esdras Smith MD [address] [place], [place] [phone] PCP - General Internal Medicine 02/28/21 documented as of this encounter
--- OUTSIDE RECORDS SUMMARY | 2024-09-11 12:34 | XMS_ITS | Encounter Summary ---
Author Organization [facility] Address [address] [place] [address] Care Team Providers Care Corporate Communications Associate Name Role Phone Patricia Esparza DO Primary Care Pro vider Unavailable Lorraine Smiley DO Primary Care Provider Unava ilable Patricia Esparza DO Primary Care Pro vider Unavailable [facility], Pcp Primary Care Provider Esdras Barnes MD Primary Care Provider [phone] Encounter Details Date Type Department Care Team Description 07/30/2013 GARMENT CUTTER/Mass[employer] Report Medical Records [address] [place] [address] Abstract, Provider Social History Tobacco Use Types [...] on filedocumented in this encounter Care Teams Corporate Communications Associate Relationship Specialty Start Date End Date Patricia Esparza DO PCP - General Internal Medicine 06/23/13 10/16/15 Lorraine Smiley DO PCP - General Internal Medicine 10/28/15 10/31/15 Patricia Esparza DO PCP - General Internal Medicine 11/01/15 02/27/21 [facility], Pcp PCP - General Internal Medicine 10/17/15 10/27/15 Esdras Smith MD [address] [place] [address] [phone] PCP - General Internal Medicine 02/28/21 documented as of this encounter
--- OUTSIDE RECORDS SUMMARY | 2024-09-11 12:34 | XMS_ITS | Encounter Summary ---
Author Organization [facility] Address [address] [facility] [place] [address] Care Team Providers Care Development Chemist Name Role Phone Esdras Smith MD Primary Care Provider [phone] Encounter Details Date Type Department Care Team Description 10/23/2021 Refill Adult Medicine [address] [phone] Sultana Morrison MD [address] [place] [address] Social History Tobacco Use Types Packs/Day Years [...] on filedocumented in this encounter Care Teams Development Chemist Relationship Specialty Start Date End Date Esdras Smith MD [address] [place] [address] PCP - General Internal Medicine 02/28/21 documented as of this encounter
--- OUTSIDE RECORDS SUMMARY | 2024-09-11 12:34 | XMS_ITS | Encounter Summary ---
Author Organization [facility] Address [address] [place] [address] Care Team Providers Care Bag Machine Tender Name Role Phone Patricia Esparza DO Primary Care Pro vider Unavailable Esdras Smith MD Primary Care Provider [phone] Reason for Visit * Reason Onset Date Comments REFERRAL 09/23/2016 Encounter Details Date Type Department Care Team Description 09/23/2016 Telephone Adult Medicine [address] [address] Patricia Esparza DO REFERRAL Social History Tobacco Use Types Packs/Day Years [...] encounter Miscellaneous Notes * Telephone Encounter - Noelle Ashraf - 09/23/2016 2:48 PM EST FYI to referring provider; We have attempted to contact this patient for the order placed to see HOT CAR CHARGER for routine exam, however, patient has not responded to any of our attempts and for this reason patients order will be closed. If patient changes her mind please have her contact HOT CAR CHARGER for an appointment Thank you documented in this encounter Plan of Treatment Not on file documented as of this encounter Visit Diagnoses Not on filedocumented in this encounter Care Teams Bag Machine Tender Relationship Specialty Start Date End Date Patricia Esparza DO PCP - General Internal Medicine 11/01/15 02/27/21 Esdras Smith MD [address] [place], [place] [phone] PCP - General Internal Medicine 02/28/21 documented as of this encounter
--- OUTSIDE RECORDS SUMMARY | 2024-09-11 12:34 | XMS_ITS | Encounter Summary ---
Author Organization [facility] Address [address] [place] [address] Care Team Providers Care Piece Dyer Name Role Phone Patricia Esparza DO Primary Care Pro vider Unavailable Esdras Smith MD Primary Care Provider [phone] Encounter Details Date Type Department Care Team Description 01/16/2021 [facility] Medical Records [address] [place] [address] Abstract, Provider Social History Tobacco Use Types [...] on filedocumented in this encounter Care Teams Piece Dyer Relationship Specialty Start Date End Date Patricia Esparza DO PCP - General Internal Medicine 11/01/15 02/27/21 Esdras Smith MD [address] [place] [phone] PCP - General Internal Medicine 02/28/21 documented as of this encounter
--- OUTSIDE RECORDS SUMMARY | 2024-09-11 12:34 | XMS_ITS | Encounter Summary ---
Author Organization [facility] Address [address] [place] [address] Care Team Providers Care Plaster Machine Tender Name Role Phone Patricia Esparza DO Primary Care Pro vider Unavailable Esdras Smith MD Primary Care Provider [phone] Reason for Visit * Reason Comments E-prescribe Rx Request Encounter Details Date Type Department Care Team Description 08/31/2020 Refill Adult Medicine [address] [address] Patricia Esparza DO E-prescribe Rx Request Social History Tobacco Use [...] Telephone Encounter - Mila Acevedo M.A. - 08/31/2020 10:39 AM EST Lab Results Component Value Date NA 139 03/07/2020 K 4.1 03/07/2020 CO2 26 03/07/2020 CL 105 03/07/2020 BUN 13 03/07/2020 CREAT 0.81 03/07/2020 GLU 84 03/07/2020 CA 9.4 03/07/2020 GFR > 60 03/07/2020 Last appt with pcp 01/2020 * Telephone Encounter - Victor Manuel Escalante - 08/31/2020 8:06 AM EST Patient would like script to be: E-PRESCRIBED/FAXED TO PHARMACY WHEN WAS THE PATIENT'S LAST APPOINTMENT IN ADULT MEDICINE? 02/09/2020 WHEN WAS THE LAST TIME THE PATIENT SAW THEIR PCP? Same as above Does patient have an upcoming appointment? Patient [...] N/A Patients current insurance carrier is: Payor: MVA / Plan: [employer]VA INSURANCE / Product Type: OTHER documented in this encounter Plan of Treatment Not on file documented as of this encounter Visit Diagnoses Not on filedocumented in this encounter Care Teams Plaster Machine Tender Relationship Specialty Start Date End Date Patricia Esparza DO PCP - General Internal Medicine 11/01/15 02/27/21 Esdras Smith MD [address] [place] [address] PCP - General Internal Medicine 02/28/21 documented as of this encounter
--- OUTSIDE RECORDS SUMMARY | 2024-09-11 12:34 | XMS_ITS | Encounter Summary ---
Author Organization [facility] Address [address] [place] [address] Care Team Providers Care Care Mgr Name Role Phone Patricia Esparza DO Primary Care Pro vider Unavailable Esdras Smith MD Primary Care Provider [phone] Reason for Visit * Reason Onset Date Comments Medical Records 03/17/2017 appointment/refe rral Encounter Details Date Type Department Care Team Description 03/17/2017 Telephone OBGYN - [facility] [address] [place], [place] [phone] Janna Lugo, MANISHA [address] [place], [place] [phone] Medical Records (appointment/referral) Social History Tobacco Use Types Packs/Day Years [...] encounter Miscellaneous Notes * Telephone Encounter - Janna Jerome - 03/17/2017 1:48 PM EDT We [facility] records from [facility], see telephone encounter: Jyoti Harmon at 03/12/2017 ??1:03 PM Status: Signed Transfer records received from [facility]. Records sent to Jeremías Quezada [facility], for abstracting. Per Lupe (SEVEN), I called patient to see what she would like to be seen for. Pt states that she would like to discuss pcos with any provider, male or female. She had been referred by Lo Mabry back on October 24, 2016. Patient will CALL BACK at her convenience after she checks her schedule to book an appointment. 25+ pages of records placed in [facility] bin to be abstracted. documented in this encounter Plan of Treatment Not on file documented as of this encounter Visit Diagnoses Not on filedocumented in this encounter Care Teams Care Mgr Relationship Specialty Start Date End Date Patricia Esparza DO PCP - General Internal Medicine 11/01/15 02/27/21 Esdras Smith MD [address] [place] [id number] PCP - General Internal Medicine 02/28/21 documented as of this encounter
--- OUTSIDE RECORDS SUMMARY | 2024-09-11 12:34 | XMS_ITS | Encounter Summary ---
Author Organization [facility] Address [address] [place] [address] Care Team Providers Care Buckle Wire Inserter Name Role Phone Esdras Smith MD Primary Care Provider [phone] Encounter Details Date Type Department Care Team Description 07/02/2022 Pt. Non Urgent Medical Question Adult Medicine [facility] [address] [place] [phone] Esdras Smith MD [address] [place] [phone] Social History Tobacco Use Types Packs/Day Years [...] encounter Miscellaneous Notes * Telephone Encounter - Karly Sierra M.A. - 07/03/2022 8:28 AM ESTFrom: Jorge Luis Saucedo To: Nash Smith Sent: 07/02/2022 6:32 PM EST Subject: Medication renewals I was prescribed Olanzapine 2.5 and Fluoxetine was highered to 60 mg by a BHN a few months ago when I called crisis, because I???ve been waiting a year for a therapist appointment. Can these medications please be refilled by Dr. Smith. Also can he refill my topiramate, it works great in preventing my headaches but my neurologist won??? t refill without an appt. He was rude to me last time I went so I???d rather not see him. Please get back to me as soon as possible. Thank you. documented in this encounter Plan of Treatment Not on file documented as of this encounter Visit Diagnoses Not on filedocumented in this encounter Care Teams Buckle Wire Inserter Relationship Specialty Start Date End Date Esdras Smith MD [address] [place] [id number] PCP - General Internal Medicine 02/28/21 documented as of this encounter
[2024-09-11 12:44] LABS: Alanine Aminotransferase 14 U/L (0-31); Albumin Level 4.2 g/dL (3.5-5.0); Alkaline Phosphatase 82 U/L (39-117); Anion Gap 10 (12-20); Aspartate Amino Transferase 17 U/L (5-31); Bilirubin Direct 0.1 mg/dL (0.0-0.5); Bilirubin Total 0.4 mg/dL (0.0-1.0); Blood Urea Nitrogen 14 mg/dL (9-16); Calcium 9.8 mg/dL (8.4-10.2); Carbon Dioxide 27 mmol/L (22-29); Chloride 108 mmol/L (96-108); Creatinine Clr Calc Pharmacy 105.3; Estimated Glomerular Filt Rate > 60; Glucose Random 113 mg/dL (60-115); Magnesium 2.1 mg/dL (1.6-2.6); Potassium 4.2 mmol/L (3.3-5.1); Sodium 141 mmol/L (135-145); Total Protein 7.6 g/dL (6.5-8.0)
[2024-09-11 12:47] LABS: HCG Quantitative < 2 mIU/mL; Troponin-I High Sensitivity < 2.7 ng/L (<3.5-17.0)
[2024-09-11 12:57] LABS: Erythrocyte Sedimentation Rate 10 MM/HR (0-20)
[2024-09-11 13:08] LABS: Influenza A PCR NEGATIVE (Negative); Influenza B PCR NEGATIVE (Negative); Resp Syncy Virus RNA Qual PCR NEGATIVE (Negative); SARS COV2 PCR INHOUSE NEGATIVE (Negative)
[2024-09-11] MEDS: iohexoL 350 MG/ML 100 ML INFUS..BTL IV (13:18)
--- NOTE | 2024-09-11 14:31 | PC.NURSE ---
Pt off unit to MRI.
[2024-09-11 15:28] VITALS: BP 118/77; PULSE 74; RESP 14; TEMP 36.7; O2SAT 100
[2024-09-11 16:03] LABS: Amphetamine Screen Urine Not Detected (Not Detect); Barbiturates, Urine Not Detected (Not Detect); Benzodiazepines Screen Urine Not Detected (Not Detect); Buprenorphine Scr Not Detected (Not Detect); Cannabinoid Screen Urine POSITIVE (Not Detect); Cocaine Screen Urine Not Detected (Not Detect); Fentanyl, urine Not Detected (Not Detect); Methadone Screen, Urine Not Detected (Not Detect); Opiate Screen Urine Not Detected (Not Detect); Oxycodone Screen Urine Not Detected (Not Detect); Phencyclidine Screen Urine Not Detected (Not Detect)
[2024-09-11] MEDS: Aspirin 81 MG TAB.CHEW PO (17:06)
--- NOTE | 2024-09-11 17:47 | P.HPHOSP_ITS ---
History of Present Illness Date of Service: 09/11/24 Attending physician on admission: Samia Oleary Chief Complaint: left hand weakness; difficulty speaking This is a 34-year-old female with history of anxiety who presents to the emergency department after episode of left hand weakness. Last evening she was lying in bed when she noticed that she became very disoriented. She describes it as feeling like she had been drugged although she had been alone in her home all day. She had associated difficulty moving her left hand when she tried to reach for her phone she was unable to do so. She tried to tell her phone to call for help but she was unable to get the words out. Subsequently she fell asleep in presented to the hospital today. Today she has a headache but no further weakness in her left arm or difficulty speaking. In the emergency department she had a head and neck CTA which was unremarkable and an MRI which was negative for acute stroke. Lab work was unremarkable. She did test positive for marijuana. Due to concern for possible TIA she will be admitted overnight for evaluation. Review of Systems 2 Review of Systems: Yes all other systems are reviewed and are negative Constitutional: Constitutional: Denies chills and Denies fever(s) Cardiovascular: Cardiovascular: Denies chest pain and Denies palpitations Respiratory: Respiratory: Denies cough Gastrointestinal: Gastrointestinal: Denies abdominal pain, Denies nausea and Denies vomiting Endocrine: Endocrine: Denies palpitations [facility] Medical History Back pain Morbid obesity GERD (gastroesophageal reflux disease) Migraine headache Panic attacks Elevated cholesterol Depression Anxiety Family History Mother Kidney disease Father No problems noted. Brother No problems noted. Daughter No problems noted. Surgical History Hx of laparoscopic partial gastrectomy History of surgery on wrist 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 child care sitter to a significant other at home: Yes Do you presently have visiting nurse or other home services: No Alcohol intake: current Alcohol intake frequency: holidays/special occasions only Patient Tobacco Use Status: Never used Tobacco Cigarettes Per Day: 4 Smoked in Last 30 Days: No Use of substances other than those prescribed or required for medical reasons: Yes Substance Use Type: Marijuana Substance Use Frequency: Occasionally Advance Directives: No Advance Directives Information Provided: Yes Do you have a plan to hurt others: No Plan Patient : No Meds Allergies Allergy/AdvReac Type Severity Reaction Status Date / Time sumatriptan [From IMITREX] Allergy Severe THROAT Verified 09/11/24 11:52 SWELLING metoclopramide [From REGLAN] Allergy Intermediate HEART RACES Verified 09/11/24 11:52 Active Medications: Current Medications Acetaminophen (Acetaminophen 325 Mg Tablet) 650 mg PO Q6H PRN PRN Reason: Pain, Mild 1-3,fever,headache Calcium Carbonate (Calcium Carbonate 750 Mg Tab.Chew) 750 mg PO Q4H PRN PRN Reason: Heartburn Magnesium Hydroxide (Milk Of Magnesia 30 Ml Oral.Susp) 30 ml PO DAILY PRN PRN Reason: Constipation Melatonin (Melatonin 3 Mg Tablet) 6 mg PO BEDTIME PRN PRN Reason: Insomnia Sodium Chloride (0.9 % Sodium Chloride Flush 3 Ml Syringe) [facility] Medications ?Medication ?Instructions ?Recorded ?Confirmed ?Last Taken ?Type fluoxetine 20 mg capsule 60 mg PO DAILY 04/10/22 12/03/23 08/25/23 History Physical Exam 2 Vital Signs and Narrative: Vital Signs: Last Vital Signs Temp 98.1 F 09/11/24 15:28 Pulse 74 09/11/24 15:28 Resp 14 09/11/24 15:28 BP 118/77 09/11/24 15:28 Pulse Ox 100 09/11/24 15:28 O2 Del Method Room Air 09/11/24 15:28 BMI result Body Mass Index 29.4 Const: General: cooperative, comfortable, no acute distress, alert and awake Nutritional Appearance: average body habitus Orientation/consciousness: p atient oriented x3 Resp: Effort & Inspection: normal respiratory effort, able to speak in complete sentences, no respiratory distress and no use of accessory muscles Cardio: Rate: regular rate Neuro: General: patient oriented x3, moves all extremities and CN's II-XI intact bilaterally Results Labs 09/11/24 12:07 09/11/24 12:07 Labs: Laboratory Results - last 24 hr 09/11/24 09/11/24 12:07 15:44 MCV 94.8 MCH 32.7 MCHC 34.4 RDW 12.9 Plt Count 460 H D MPV 9.1 L Immature Gran % (Auto) 0.7 H Neut % (Auto) 61.0 Lymph % (Auto) 30.7 [place]field % (Auto) 5.3 Eos % (Auto) 1.9 Baso % (Auto) 0.4 Lymph # (Auto) 3.9 [place]field # (Auto) 0.7 Eos # (Auto) 0.2 Baso # (Auto) 0.1 Abs Immat Gran (auto) 0.09 H Absolute Neuts (auto) 7.7 Absolute Nucleated RBC 0.000 Nucleated RBC % (auto) 0.0 ESR 10 PT 12.0 INR 1.0 Anion Gap 10 L Estim Creat Clear Calc 105.3 Estimated GFR > 60 Random Glucose 113 Calcium 9.8 Magnesium 2.1 Total Bilirubin 0.4 Direct Bilirubin 0.1 AST 17 ALT 14 Alkaline Phosphatase 82 Troponin I High Sens < 2.7 C-Reactive Protein 0.20 Total Protein 7.6 Albumin 4.2 Beta HCG, Quant < 2 Urine Opiates Screen Not Detected Ur Buprenorphine Scrn Not Detected Ur Oxycodone Screen Not Detected Urine Methadone Screen Not Detected Urine Fentanyl Screen Not Detected Ur Barbiturates Screen Not Detected Ur Phencyclidine Scrn Not Detected Ur Amphetamines Screen Not Detected U Benzodiazepines Scrn Not Detected Urine Cocaine Screen Not Detected U Marijuana (THC) Screen POSITIVE H Influenza Type A (PCR) NEGATIVE Influenza Type B (PCR) NEGATIVE RSV RNA Qual (PCR) NEGATIVE SARS-CoV-2 RNA (RT-PCR) NEGATIVE Assessment and Plan (1) Weakness: Status: Acute Plan This is a 34-year-old female with a history of anxiety who presents to the emergency department with episode of left arm weakness, confusion and difficulty speaking Left arm weakness, aphasia Possible complex migraine v stress response v possible TIA v drug related (tox screen +for marijuana) CTA negative, MRI negative for stroke Lipid profile, HbA1c pending neurology consult echo with bubble study if neurology recommends to rule out pfo neuro checks no need for PT/OT as no current defecits anxiety prn hydroxyzine dvt ppx - low risk, early ambulation Quality Stroke Does the patient have a stroke diagnosis?: No VTE Prior VTE?: No VTE Risk Level:: Medical - low VTE Device Contraindication: N/A - Device Ordered VTE Drug Contraindication: Treatment Not Indicated
[2024-09-11 17:52] LABS: Cholesterol 186 mg/dL (<200); HDL Cholesterol 39 mg/dL (>40); LDL Cholesterol Calculated 130 mg/dL (<100); Triglycerides 87 mg/dL (<150)
--- NOTE | 2024-09-11 18:02 | PHA.MEDREC ---
Pharmacy Consult ? Medication Reconciliation Pharmacy has completed the medication reconciliation. Spoke to the pt to confirm meds.
[2024-09-11 18:09] LABS: Estimated Average Glucose 94 mg/dL; Hemoglobin A1C 112.6284 umol/L; Hemoglobin A1c % 4.9 % (<6.0); Total Hemoglobin (HGBA1C) 3725.4219 umol/L
[2024-09-11 18:42] VITALS: BP 117/81; PULSE 73; RESP 12; TEMP 37.1; O2SAT 100
--- NOTE | 2024-09-12 | ECG_ITS ---
Test Reason : worsening cp Blood Pressure : */* mmHG Vent. Rate : 68 BPM Atrial Rate : 68 BPM P-R Int : 146 ms QRS Dur : 102 ms QT Int : 414 ms P-R-T Axes : 31 34 26 degrees QTcB Int : 440 ms Normal sinus rhythm Normal ECG When compared with ECG of 11-Sep-2024 12:02, No significant change was found Referred By: Lawson Bruno Electronically Signed By: ANASTACIA ARCHIBALD MD
[2024-09-12] MEDS: Acetaminophen 325 MG TABLET 650 MG PO (00:41)
[2024-09-12 07:35] VITALS: BP 111/71; PULSE 84; RESP 16; TEMP 37; O2SAT 96
[2024-09-12] MEDS: hydrOXYzine HCL 50 MG TABLET PO (08:59)
[2024-09-12] MEDS: Calcium Carbonate 750 MG TAB.CHEW PO ×2 (09:12→21:38)
[2024-09-12] MEDS: 0.9 % Sodium Chloride Flush 3 ML SYRINGE IVFLUSH ×2 (09:17→21:39)
[2024-09-12 14:23] VITALS: BP 135/81; PULSE 84; RESP 15; O2SAT 100
--- NOTE | 2024-09-12 14:24 | ECG_ITS ---
Test Reason : chest pain Blood Pressure : */* mmHG Vent. Rate : 76 BPM Atrial Rate : 76 BPM P-R Int : 138 ms QRS Dur : 92 ms QT Int : 388 ms P-R-T Axes : 49 58 44 degrees QTcB Int : 436 ms Normal sinus rhythm Normal ECG When compared with ECG of 12-Sep-2024 00:14, No significant change was found Referred By: Marisol Rodriguez Electronically Signed By: GURPREET GAMBOA
--- NOTE | 2024-09-12 14:37 | P.PNIM_ITS ---
Subjective Subjective Date of Service: 09/12/24 Interval History: seen and examined this morning admitted for episode of confusion and left hand weakness having episodes of chest pain, anxiety no further confusion, weakness Review of Systems Review of Systems: Yes all other systems are reviewed and are negative Constitutional Constitutional: Denies chills and Denies fever(s) Cardiovascular Cardiovascular: Denies chest pain, Denies palpitations and Denies dyspnea Respiratory Respiratory: Denies cough and Denies dyspnea Gastrointestinal Gastrointestinal: Denies abdominal pain, Denies nausea and Denies vomiting Endocrine Endocrine: Denies palpitations Physical Exam 2 Vital Signs: Vital Signs: Last Vital Signs Temp 98.6 F 09/12/24 07:35 Pulse 84 09/12/24 14:23 Resp 15 09/12/24 14:23 BP 135/81 09/12/24 14:23 Pulse Ox 100 09/12/24 14:23 O2 Del Method Room Air 09/12/24 14:23 BMI result Body Mass Index 29.4 Const: Other: anxious, intermittently crying General: alert and awake Nutritional Appearance: average body habitus Orientation/consciousness: patient oriented x3 Resp: Effort & Inspection: normal respiratory effort, able to speak in complete sentences, no respiratory distress and no use of accessory muscles Cardio: Rate: regular rate Neuro: General: patient oriented x3, moves all extremities and CN's II-XI intact bilaterally Extrem: General: Yes no pedal edema Objective Data Active Medications Acetaminophen (Acetaminophen 325 Mg Tablet) 650 mg PO Q6H PRN PRN Reason: Pain, Mild 1-3,fever,headache Last Admin: 09/12/24 00:41 Dose: 650 mg Documented By: MIGUEL ÁNGEL Acetaminophen/Butalbital/Caffeine (Butalb/Acetamin/Caff 50/325/40 Tablet) 1 tab PO Q4H PRN PRN Reason: headache Calcium Carbonate (Calcium Carbonate 750 Mg Tab.Chew) 750 mg PO Q4H PRN PRN Reason: Heartburn Last Admin: 09/12/24 09:12 Dose: 750 mg Documented By: ABBIE Hydroxyzine HCl (Hydroxyzine Hcl 50 Mg Tablet) 50 mg PO BID PRN PRN Reason: Anxiety Last Admin: 09/12/24 08:59 Dose: 50 mg Documented By: ABBIE Magnesium Hydroxide (Milk Of Magnesia 30 Ml Oral.Susp) 30 ml PO DAILY PRN PRN Reason: Constipation Sodium Chloride (0.9 % Sodium Chloride Flush 3 Ml Syringe) 3 ml IVFLUSH QSHIFT CALEB Last Admin: 09/12/24 09:17 Dose: 3 ml Documented By: ABBIE Trazodone HCl (Trazodone Hcl 25 Mg Halftab) 25 mg PO BEDTIME PRN PRN Reason: Insomnia Labs 09/11/24 12:07 09/11/24 12:07 Labs: Laboratory Results - last 24 hr 09/11/24 09/11/24 15:44 17:33 Estimat Average Glucose 94 Hemoglobin A1c % 4.9 Triglycerides 87 Cholesterol 186 LDL Cholesterol, Calc 130 H HDL Cholesterol 39 L Urine Opiates Screen Not Detected Ur Buprenorphine Scrn Not Detected Ur Oxycodone Screen Not Detected Urine Methadone Screen Not Detected Urine Fentanyl Screen Not Detected Ur Barbiturates Screen Not Detected Ur Phencyclidine Scrn Not Detected Ur Amphetamines Screen Not Detected U Benzodiazepines Scrn Not Detected Urine Cocaine Screen Not Detected U Marijuana (THC) Screen POSITIVE H Assessment and Plan (1) Weakness: Status: Acute Plan This is a 34-year-old female with a history of anxiety who presents to the emergency department with episode of left arm weakness, confusion and difficulty speaking Left arm weakness, aphasia Possible complex migraine v stress response v possible TIA v drug related (tox screen +for marijuana) CTA negative, MRI negative for stroke neurology consult echo with bubble study if neurology recommends to rule out pfo (pt concerned this could be the case) no focal neurological deficits no need for PT/OT as no current defecits chest pain ekg, trop negative anxiety prn hydroxyzine dvt ppx - low risk, early ambulation Quality Stroke Does the patient have a stroke diagnosis?: No VTE Prior VTE?: No VTE Risk Level:: Medical - low VTE Device Contraindication: N/A - Device Ordered VTE Drug Contraindication: Treatment Not Indicated
[2024-09-12] MEDS: Famotidine/PF 20 MG/2 ML VIAL IVPUSH (14:38)
[2024-09-12] MEDS: Ketorolac Tromethamine 15 MG/ML VIAL IVPUSH ×2 (14:38→21:38)
--- NOTE | 2024-09-12 14:52 | PC.NURSE ---
Patient woke up from nap and immediately c/o 10/10 CP radiating to back, pt. crying upset, JOE Damon made aware, EKG ordered, labwork ordered, meds ordered. VSS, will continue to monitor.
--- NOTE | 2024-09-12 14:58 | MHC.CM.PN ---
This CM attempted to meet with pt, upon entering pts room in ED, pt is visibly shaking and crying, per RN it was suggested that this CM return at a later time.
[2024-09-12 15:15] LABS: Lipase 15 U/L (8-78)
[2024-09-12 15:24] LABS: Troponin-I High Sensitivity < 2.7 ng/L (<3.5-17.0)
[2024-09-12 17:16] VITALS: BP 121/69; PULSE 73; RESP 18; TEMP 36.5; O2SAT 99
[2024-09-12 20:00] VITALS: BP 104/64; PULSE 74; RESP 18; TEMP 37.1; O2SAT 99
[2024-09-13] VITALS: BP 112/61; PULSE 61; RESP 16; TEMP 36.3; O2SAT 100
[2024-09-13 04:00] VITALS: BP 109/66; PULSE 82; RESP 16; TEMP 36.7; O2SAT 98
--- NOTE | 2024-09-13 07:00 | CA_ITS ---
Transthoracic Echocardiogram Patient (Last, First, Middle): Jorge Luis Canales B Gender: Female Date of : 1990 Age: 34 Procedure Date: 09/13/2024 Procedure Type: Transthoracic Echocardiogram [place] [facility] [place]: 157.48 cm Weight: 72.58 kg BSA: 1.74 m2 Heart Rate: 79 bpm BP: 113 / 60 mmHg Chili Powder Mixer: Referring MD: Marisol DIAZ Symptoms: possible TIA Study Quality: Adequate ECG Rhythm: Sinus Conclusions: - The left ventricular systolic function is normal. The calculated ejection fraction is 57% by biplane method. - There is no evidence of interatrial shunt by agitated saline. - No obvious valvular pathology seen on this study. Findings Left Ventricle Normal left ventricular cavity size. There is normal left ventricular wall thickness. The left ventricular systolic function is normal. The calculated ejection fraction is 57% by biplane method. There is no evidence of regional wall motion abnormalities. Diastolic function is normal for age. Right Ventricle Mildly increased right ventricular cavity size. There is normal right ventricular systolic function. Atria Both atria are normal in size. There is no evidence of interatrial shunt by agitated saline. There is no evidence of thrombus or mass in the left atrium. (rest and valsalva). Aortic Valve There is a normal trileaflet aortic valve. There is no aortic valve stenosis. There is no aortic valve regurgitation. Mitral Valve The mitral valve appears normal. There is no mitral valve regurgitation. There is no mitral valve stenosis. Pulmonic Valve There is trace pulmonic valve regurgitation. Tricuspid Valve Normal tricuspid valve structure. There is trace tricuspid valve regurgitation. There is no evidence of pulmonary hypertension. Great Vessels The asc aorta is normal in size. Venous The inferior vena cava is normal in size and collapses greater than 50% with inspiration. Pericardium/Pleural There is no evidence of pericardial effusion. Prior Study Comparison No prior study available for comparison. Recommendations, Care & Conclusions No obvious valvular pathology seen on this study. Measurements 2D Linear Measurements IVSd: 0.96 0.6-0.9/0.6-1.0 cm LVIDd: 4.34 3.9-5.3/4.2-5.9 cm LVIDd Index: 2.49 2.4-3.2/2.2-3.1 cm/m2 LVIDs: 2.74 2.0-3.6 cm LVPWd: 0.96 0.7-1.1 cm LA Diam: 3.90 2.7-3.8/3.0-4.0 cm LAIDs Index: 2.24 1.5-2.3 cm/m2 LV Mass: 170.48 67-162/88-224 g LV Mass Index: 97.98 43-95/49-115 g/m2 LVOT Diam: 2.00 3.0+(-)1.3 cm 2D Systolic Function EF 4C: 52.40 >55% EF 2C: 60.10 >55% EF BiP: 57.40 >55% Mitral Valve MV Pk E: 0.63 MV PK A: 0.68 MV Decel Time: 207.00 E/A: 0.90 E'Lateral: 13.90 E'Medial: 8.16 E/E' Med: 7.70 E/E' Lat: 4.50 PHT: 61.00 MVA PHT: 3.61 Decel Denali: 3.04 Aortic Valve AoV Pk Sadi: 1.51 AoV Mn Sadi: 1.02 AoV VTI: 0.32 AoV Pk Grad: 9.00 Aov Mn Grad: 5.00 PAM Cont.VTI: 1.82 LVOT LVOT Pk Sadi: 0.98 LVOT Mn Sadi: 0.61 LVOT VTI: 0.19 LVOT Pk Grad: 4.00 LVOT Mn Grad: 2.00 LVOT Diam: 2.00 LVOT Area: 3.14 Diastolic Function MV Pk E: 0.63 MV Pk A: 0.68 E/A: 0.90 E'Medial: 8.16 E/E' Med: 7.70 E' Laterial: 13.90 E/E' Lat: 4.50 Right Ventricle TAPSE (mm): 25.20 TVS' Sadi: 10.20 Tricuspid Valve TR Pk Sadi: 1.99 TR Pk Grad: 16.00 RA Press: 3.00 RVSP: 19.00 Great Vessels Aorta Sinus of Valsalva: 2.10 2.0-3.5 cm Pulmonary Valve PV Pk Sadi: 0.84 Peak PV Grad: 3.00 Updated in Other Vendor System with Status of Final Jeison Gaspar MD electronically signed on 09/13/2024 3:47:23 PM with status of Final
[2024-09-13 07:18] VITALS: BP 113/60; PULSE 81; RESP 18; TEMP 36.4; O2SAT 98
[2024-09-13] MEDS: Aspirin Enteric Coated 81 MG TABLET.DR PO (08:02)
[2024-09-13] MEDS: 0.9 % Sodium Chloride Flush 3 ML SYRINGE IVFLUSH (08:02)
[2024-09-13 11:14] VITALS: BP 123/69; PULSE 78; RESP 20; TEMP 36.4; O2SAT 99
--- NOTE | 2024-09-13 11:29 | PM.NEUROCN ---
History of Present Illness Data of Consult Service Date: 09/13/24 Primary Care Provider: Esdras Smith MD HPI This is a 34-year-old female with history of anxiety who presents to the emergency department after episode of left hand weakness. Last evening she was lying in bed when she noticed that she became very disoriented. She describes it as feeling like she had been drugged although she had been alone in her home all day. She had associated difficulty moving her left hand when she tried to reach for her phone she was unable to do so. She tried to tell her phone to call for help but she was unable to get the words out. Subsequently she fell asleep and woke up in the morning feeling fine except a slight mental fog, presented to the hospital ER . Today she has a headache but no further weakness in her left arm or difficulty speaking. In the emergency department she had a head and neck CTA which was unremarkable and an MRI which was negative for acute stroke. Lab work was unremarkable. She did test positive for marijuana. Due to concern for possible TIA she will be admitted overnight for evaluation. She has a h/o migraine most of her life but without aura or neurological Sx. [facility] Past Medical History Medical History Back pain Morbid obesity GERD (gastroesophageal reflux disease) Migraine headache Panic attacks Elevated cholesterol Depression Anxiety Family History Family History Mother Kidney disease Father No problems noted. Brother No problems noted. Daughter No problems noted. Surgical History Surgical History Hx of laparoscopic partial gastrectomy History of surgery on wrist 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 eye care professional to a significant other at home: Yes Do you presently have visiting nurse or other home services: No Alcohol intake: current Alcohol intake frequency: holidays/special occasions only Patient Tobacco Use Status: Current everyday Tobacco user Cigarettes Per Day: 4 e-Cigarette/Vaping Use: Currently Using Substance Use Type: Marijuana Meds Allergies Allergy/AdvReac Type Severity Reaction Status Date / Time sumatriptan [From IMITREX] Allergy Severe THROAT Verified 09/11/24 11:52 SWELLING metoclopramide [From REGLAN] Allergy Intermediate HEART RACES Verified 09/11/24 11:52 Active Medications: Current Medications Acetaminophen (Acetaminophen 325 Mg Tablet) 650 mg PO Q6H PRN PRN Reason: Pain, Mild 1-3,fever,headache Last Admin: 09/12/24 00:41 Dose: 650 mg Acetaminophen/Butalbital/Caffeine (Butalb/Acetamin/Caff 50/325/40 Tablet) 1 tab PO Q4H PRN PRN Reason: headache Aspirin (Aspirin Enteric Coated 81 Mg Tablet.Dr) 81 mg PO DAILY [facility] Last Admin: 09/13/24 08:02 Dose: 81 mg Calcium Carbonate (Calcium Carbonate 750 Mg Tab.Chew) 750 mg PO Q4H PRN PRN Reason: Heartburn Last Admin: 09/12/24 21:38 Dose: 750 mg Hydroxyzine HCl (Hydroxyzine Hcl 50 Mg Tablet) 50 mg PO Q8H PRN PRN Reason: Anxiety Magnesium Hydroxide (Milk Of Magnesia 30 Ml Oral.Susp) 30 ml PO DAILY PRN PRN Reason: Constipation Sodium Chloride (0.9 % Sodium Chloride Flush 3 Ml Syringe) 3 ml IVFLUSH QSHIFT [facility] Last Admin: 09/13/24 08:02 Dose: 3 ml Trazodone HCl (Trazodone Hcl 25 Mg Halftab) 25 mg PO BEDTIME PRN PRN Reason: Insomnia Home Medications ?Medication ?Instructions ?Recorded ?Confirmed ?Last Taken ?Type hydroxyzine HCl 50 mg tablet 50 mg PO BID PRN Anxiety 09/11/24 09/11/24 Unknown History Physical Exam Vital Signs: Vital Signs: Last Vital Signs Temp 97.5 F 09/13/24 11:14 Pulse 78 09/13/24 11:14 Resp 20 09/13/24 11:14 BP 123/69 09/13/24 11:14 Pulse Ox 99 09/13/24 11:14 O2 Del Method Room Air 09/13/24 11:14 BMI result Body Mass Index 29.4 Neuro: Other: Normal nonfocal neurological examination Results Labs 09/11/24 12:07 09/11/24 12:07 Assessment and Plan (1) Weakness: Status: Acute Transient left upper extremity weakness, blurred vision, dizziness and difficulty talking which could have been a complex migraine phenomena. She has no evidence of stroke or vascular disease on the MRI or CTA of the head and neck. At this point her workup is complete and she can be discharged. Only time will tell if indeed this was a migraine phenomena. Procedures Date of Service Date of Service: 09/13/24
--- NOTE | 2024-09-13 11:56 | P.PNIM_ITS ---
Subjective Subjective Date of Service: 09/13/24 Interval History: Follow up visit for chest pain, anxiety, confusion, weakness and change in speech Symptoms above have since resolved, denies all except for chronic anxiety Constitutional Denies fever, chills, weakness Cardiovascular Isael CP, palpitations, dyspnea Respiratory Denies cough, SOB, wheeze Gastrointestinal denies N/V/D, pain Psychiatric Endorses chronic anxiety, some anxiousness today related to inpatient stay Physical Exam 2 Vital Signs: Vital Signs: Last Vital Signs Temp 97.5 F 09/13/24 11:14 Pulse 78 09/13/24 11:14 Resp 20 09/13/24 11:14 BP 123/69 09/13/24 11:14 Pulse Ox 99 09/13/24 11:14 O2 Del Method Room Air 09/13/24 11:14 BMI result Body Mass Index 29.4 Const: General: cooperative, healthy appearing and no acute distress O rientation/consciousness: patient oriented x3 Resp: Effort & Inspection: normal respiratory effort and able to speak in complete sentences Auscultation: clear to auscultation bilaterally Cardio: Rate: regular rate Rhythm: regular rhythm GI: Inspection: Yes normal to inspection Auscultation: normal bowel sounds Neuro: General: patient oriented x3 Cranial nerves: Yes CN's II-XII intact bilaterally and Yes Bilaterally intact EOM present Motor exam (neuro): 5/5 motor strength present throughout Extrem: General: Yes normal to inspection and Yes full ROM Objective Data Active Medications Acetaminophen (Acetaminophen 325 Mg Tablet) 650 mg PO Q6H PRN PRN Reason: Pain, Mild 1-3,fever,headache Last Admin: 09/12/24 00:41 Dose: 650 mg Documented By: MIGUEL ÁNGEL Acetaminophen/Butalbital/Caffeine (Butalb/Acetamin/Caff 50/325/40 Tablet) 1 tab PO Q4H PRN PRN Reason: headache Aspirin (Aspirin Enteric Coated 81 Mg Tablet.Dr) 81 mg PO DAILY [facility] Last Admin: 09/13/24 08:02 Dose: 81 mg Documented By: HOMA Calcium Carbonate (Calcium Carbonate 750 Mg Tab.Chew) 750 mg PO Q4H PRN PRN Reason: Heartburn Last Admin: 09/12/24 21:38 Dose: 750 mg Documented By: FELA Comments: c/o heartburn Hydroxyzine HCl (Hydroxyzine Hcl 50 Mg Tablet) 50 mg PO Q8H PRN PRN Reason: Anxiety Magnesium Hydroxide (Milk Of Magnesia 30 Ml Oral.Susp) 30 ml PO DAILY PRN PRN Reason: Constipation Sodium Chloride (0.9 % Sodium Chloride Flush 3 Ml Syringe) 3 ml IVFLUSH QSHIFT CALEB Last Admin: 09/13/24 08:02 Dose: 3 ml Documented By: HOMA Trazodone HCl (Trazodone Hcl 25 Mg Halftab) 25 mg PO BEDTIME PRN PRN Reason: Insomnia Labs 09/11/24 12:07 09/11/24 12:07 Labs: Laboratory Results - last 24 hr 09/12/24 14:54 Hold Purple Top SEE NOTE Troponin I High Sens < 2.7 Lipase 15 Assessment and Plan Plan This is a 34-year-old female with a history of anxiety who presents to the emergency department with episode of left arm weakness, confusion and difficulty speaking Left arm weakness, aphasia Possible complex migraine v stress response v possible TIA v drug related (tox screen +for marijuana) CTA negative, MRI negative for stroke neurology consult pending echo with bubble study if neurology recommends to rule out possbile pfo no focal neurological deficits, no need for PT/OT symptoms are resolved chest pain ekg, trop negative resolved anxiety prn hydroxyzine dvt ppx - low risk, early ambulation Quality Stroke Does the patient have a stroke diagnosis?: No VTE Prior VTE?: No VTE Risk Level:: Medical - low VTE Device Contraindication: N/A - Device Ordered VTE Drug Contraindication: Treatment Not Indicated
--- NOTE | 2024-09-13 12:59 | PM.DS ---
DS: Providers Provider Date of Service: 09/13/24 Date of admission: 09/11/24 17:44 Date of discharge: 09/13/24 Primary care physician: Esdras Smith MD Consults: 09/11/24 17:44 Consult to Neurology Routine Consulting Provider: [facility] Reason for consultation: left hand weakness; aphagia Has provider been notified: No DS: Diagnosis Discharge Diagnosis (1) Weakness: Status: Acute DS: Summary Hospital Course Hospital Course: From initial HPI: This is a 34-year-old female with history of anxiety who presents to the emergency department after episode of left hand weakness. Last evening she was lying in bed when she noticed that she became very disoriented. She describes it as feeling like she had been drugged although she had been alone in her home all day. She had associated difficulty moving her left hand when she tried to reach for her phone she was unable to do so. She tried to tell her phone to call for help but she was unable to get the words out. Subsequently she fell asleep in presented to the hospital today. Today she has a headache but no further weakness in her left arm or difficulty speaking. In the emergency department she had a head and neck CTA which was unremarkable and an MRI which was negative for acute stroke. Lab work was unremarkable. She did test positive for marijuana. Due to concern for possible TIA she will be admitted overnight for evaluation. Hospital course: Patient was admitted for L sided arm/hand weakness, aphasia, and confusion. Stroke/TIA workup in ED with basic labs, EKG, head CTA and MRI all found to be negative for any acute stroke. No focal deficits. Treated with ASA. Neurology consulted, reports no evidence of stroke of vascular disease. Symptoms fully resolved. Remains with chronic intermittent anxiety. Condition likely secondary to migraine phenomenon as per neurology. Chronic problem list: Anxiety, panic attacks, depression. continue home fluoxetine Marijuana use. Encourage abstinence Migraines. not currently on any treatment, may use nsaids for migraine attacks HLD. not currently on any treatment GERD. not currently on any treatment Time Attestation Discharge Coordination Time (in mins): 38 Quality: Safe Use of Opioids Does Pt have an Active Cancer Diagnosis on the Problem List?: No Quality: Stroke Does the patient have a stroke diagnosis?: No Physical Exam Vital Signs: Vital Signs: Last Vital Signs Temp 97.5 F 09/13/24 11:14 Pulse 78 09/13/24 11:14 Resp 20 09/13/24 11:14 BP 123/69 09/13/24 11:14 Pulse Ox 99 09/13/24 11:14 O2 Del Method Room Air 09/13/24 11:14 BMI result Body Mass Index 29.4 Appearing in no acute distress head is normocephalic atraumatic eyes pupils are PERRLA sclera is anicteric mouth throat mucous membranes are intact and moist neck is supple no lymphadenopathy, no JVD noted lung sounds are clear to auscultation heart regular rate rhythm, clear S1, S2 positive bowel sounds, abdomen is soft, nontender neuro patient is alert x3, no focal deficits DS: Data Data Completed and Pending Completed studies during hospitalization [Text1]: Procedures Excision of Stomach, Percutaneous Endoscopic Approach, Vertical (08/28/23) Labs on day of discharge: Laboratory Results - last 24 hr 09/12/24 14:54 Hold Purple Top SEE NOTE Troponin I High Sens < 2.7 Lipase 15 Discharge Plan Discharge Anticipated Discharge Date/Time: 09/13/24 12:42 Patient Disposition: Home, Self-Care Discharge Diagnosis: Weakness Possible migraine headache Referrals: Esdras Smith MD [Primary Care Provider] - 1 Week Discharge Medications: Continued (DME) blood pressure test kit-large [CareTouch BP Monitor] Kit See Rx Instructions .ROUTE .MEDSUPPLY Qty: 1 0RF Rx Instructions: As directed hydroxyzine HCl 50 mg tablet 50 mg PO BID PRN (Reason: Anxiety) Discharge Orders: Discharge Order (Routine); Ordered 09/13/24 Ordered By: Alicia Engle Diet: Advance to usual diet Activity on Discharge: As tolerated Stand Alone Forms: Patient Portal Discharge page Print Language: Tamazight Care Plan Goals: Follow-up with primary care provider if symptoms return Health Concerns: Weakness Possible migraine headache Plan of Treatment: Follow-up with primary care provider as needed Take all medications as prescribed Assessment: See discharge summary
== END 2024-09-13 15:15 | disposition home or self-care (01) | DRG 54 ==
LOC: HO.ED 17:14 → HO.EDOVER 17:48 → HO.IMC 09-12 15:39
PROVIDERS: Admitting Provider Physician Assistant Medical; Emergency Provider Emergency Medicine; PCP Internal Medicine; Visit Provider Nurse Practitioner Acute Care
DX: G43.909 Migraine, unspecified, not intractable, without status migrainosus (principal); R47.01 Aphasia; F17.210 Nicotine dependence, cigarettes, uncomplicated; F41.0 Panic disorder [episodic paroxysmal anxiety]; G83.34 Monoplegia, unspecified affecting left nondominant side; Z20.822 Contact with and (suspected) exposure to COVID-19; Z71.6 Tobacco abuse counseling; Z79.899 Other long term (current) drug therapy
CPT/HCPCS: 0241U; 36415; 70496; 70498; 70551; 80048; 80061; 80076; 80307; 83036; 83690; 83735; 84484; 84702; 85025; 85610; 85652; 86140; 93005; 93306; 99285; J1885; Q9957; Q9967

== ENCOUNTER → 2024-09-11 11:55 | Outpatient (BNV) | payer OTHER, SELFPAY | PROVIDERS: Admitting Provider Physician Assistant Medical; Emergency Provider Emergency Medicine; PCP Internal Medicine; Visit Provider Internal Medicine Cardiovascular Disease | DX: I49.9 Cardiac arrhythmia, unspecified (principal) | CPT/HCPCS: 93010 ==

== ENCOUNTER 2024-09-11 17:44 | Outpatient (BNV) | payer OTHER, SELFPAY | END 2024-09-13 07:00 | PROVIDERS: Admitting Provider Physician Assistant Medical; Emergency Provider Emergency Medicine; PCP Internal Medicine; Visit Provider Internal Medicine | DX: R41.82 Altered mental status, unspecified (principal); R53.1 Weakness | CPT/HCPCS: 93306 ==

== ENCOUNTER 2024-09-11 17:44 | Outpatient (BNV) | payer OTHER, SELFPAY | END 2024-09-12 00:14 | PROVIDERS: Admitting Provider Physician Assistant Medical; Emergency Provider Emergency Medicine; PCP Internal Medicine; Visit Provider Internal Medicine Cardiovascular Disease | DX: R07.9 Chest pain, unspecified (principal) | CPT/HCPCS: 93010 ==

== ENCOUNTER → 2024-09-11 17:44 | Outpatient (BNV) | payer OTHER, SELFPAY | PROVIDERS: Admitting Provider Physician Assistant Medical; Emergency Provider Emergency Medicine; PCP Internal Medicine; Visit Provider Physician Assistant Medical | DX: R53.1 Weakness (principal) | CPT/HCPCS: 99223; 99232; 99239 ==

== ENCOUNTER → 2024-09-11 17:44 | Outpatient (BNV) | payer OTHER, SELFPAY | PROVIDERS: Admitting Provider Physician Assistant Medical; Emergency Provider Emergency Medicine; PCP Internal Medicine; Visit Provider Psychiatry & Neurology Neurology | DX: R53.1 Weakness (principal) | CPT/HCPCS: 99222 ==

== ENCOUNTER 2024-11-14 10:15 | Emergency (ER) | payer OTHER, SELFPAY ==
--- NOTE | ~2024-11-14 | CT_ITS ---
CLINICAL HISTORY: right facial numbness x [address] head without contrast Comparison: MR - MR HEAD/BRAIN WO CON - 09/11/24 14:[address]/SR - CT ANGIO HEAD NECK - 09/11/24 13:06 EST Findings: No intra-axial mass, midline shift, hydrocephalus, or acute hemorrhage. No significant atrophy-like change or white matter disease. There is no sinus or mastoid fluid. The orbits are unremarkable. There is no acute fracture. IMPRESSION: 1. No acute intracranial findings. This document has been electronically signed by: Sergey Carroll MD on 11/14/2024 13:12:47
[2024-11-14 10:17] VITALS: BP 146/84; PULSE 86; RESP 18; TEMP 36.4; O2SAT 96; BMI 29.6
--- NOTE | 2024-11-14 11:08 | ED.GENADULT ---
HPI - General Adult General Chief complaint: General Medical Stated complaint: pain on right side of face Time Seen by Provider: 11/14/24 10:37 Source: patient Mode of arrival: ambulatory Limitations: no limitations History of Present Illness ED Provider: Ludmila Zheng APRN HPI narrative: 34 yo female with PMH anxiety, depression, migraines presents to the ER with >24 hrs of right sided facial pain with associated decreased sensation. Pain originates in right ear and radiates across the face and behind her right eye and is described as sharp, stabbing, pain. Worsened with chewing and touching above the right ear. NO vision changes, dizziness, headache, vomiting, chest pain, abdominal pain, weakness/numbness/tingling of her UE>LE. This does not feel like her typical migraines. She did try OTC excedrin with no relief. Of note, patient was in our ER 08/2024 for atypical neuro symptoms with negative CTA/MRI with diagnosis TIA vs complex migraine. Has followed up with neurology (Vianca Lazo) at [facility] most recently last week and had outpatient labs and MRI ordered. She has had intermittent symptoms similar to today over the past few months but most last 15 min to several hours and self-resolve. She did mention this to her neurologist who recommended she seek care in the ER the next time she develops an episode. She became concerned today when her symptoms were longer then normal. This is what prompted her ER visit. Related Data Home Medications ?Medication ?Instructions ?Recorded ?Confirmed hydroxyzine HCl 50 mg tablet 50 mg PO BID PRN Anxiety 09/11/24 09/11/24 Previous Rx's ?Medication ?Instructions ?Recorded blood pressure test kit-large #1 ea 10/17/22 ([employer] Blood Pressure Monitor kit) carbamazepine 100 mg 100 mg PO BID #14 tabs 11/14/24 tablet,extended release,12 hr Allergies Allergy/AdvReac Type Severity Reaction Status Date / Time sumatriptan [From IMITREX] Allergy Severe THROAT Verified 11/14/24 10:19 SWELLING metoclopramide [From REGLAN] Allergy Intermediate HEART RACES Verified 11/14/24 10:19 Review of Systems Review of Systems: Yes all other systems are reviewed and are negative Constitutional: Constitutional: Reports no additional constitutional complaints, Denies body ache(s), Denies chills, Denies fever(s), Denies headache(s) and Denies weakness Eyes: Eyes: Reports no additional eye complaints and Denies change in vision ENT: Reports system reviewed and no additional complaints, except as documented, Denies dizziness, Reports facial pain, Denies headache(s), Denies nasal congestion, Denies nasal discharge and Denies neck pain Cardiovascular: Cardiovascular: Reports no additional cardiovascular complaints, Denies chest pain, Denies leg edema and Denies dyspnea Respiratory: Respiratory: Reports no additional respiratory complaints, Denies cough and Denies dyspnea Gastrointestinal: Gastrointestinal: Reports no additional gastrointestinal complaints, Denies abdominal pain, Denies diarrhea, Denies nausea and Denies vomiting Genitourinary: Genitourinary: Reports no additional female genitourinary complaints and Denies urinary incontinence Musculoskeletal: Musculoskeletal: Reports no additional musculoskeletal complaints, Denies back pain, Denies arthralgias, Denies joint swelling, Denies neck pain, Reports numbness and Reports tingling Integumentary/Breasts: Skin/Breast: Reports system reviewed and no additional complaints, except as docu and Denies rash Neurologic: Reports system reviewed and no additional complaints, except as documented, Denies Abnormal speech present, Denies dizziness, Denies headache(s), Reports numbness, Reports tingling and Denies weakness PMFSH Past Medical History Attestation statement: The following information was validated with the patient. Source: old records reviewed and nursing notes reviewed Medical History Back pain Morbid obesity GERD (gastroesophageal reflux disease) Migraine headache Panic attacks Elevated cholesterol Depression Anxiety Surgical History Hx of laparoscopic partial gastrectomy History of surgery on wrist Family History Family History Mother Kidney disease Father No problems noted. Brother No problems noted. Daughter No problems noted. 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 at home: Yes Do you presently have visiting nurse or other home services: No Alcohol intake: current Alcohol intake frequency: holidays/special occasions only Patient Tobacco Use Status: Current everyday Tobacco user Cigarettes Per Day: 4 e-Cigarette/Vaping Use: Currently Using Substance Use Type: Marijuana Advance Directives: No Advance Directives Information Provided: No Do you have a plan to hurt others: No Plan Physical Exam ED Vital Signs: Vital Signs - 24 hr 11/14/24 10:17 11/14/24 12:12 Temperature 97.6 F 98.1 F Pulse Rate 86 74 Respiratory Rate 18 14 Blood Pressure 146/84 H 112/54 L Pulse Oximetry 96 100 Oxygen Delivery Method Room Air Room Air BMI result Body Mass Index 29.6 Const General: cooperative, healthy appearing, comfortable and no acute distress Orientation/consciousness: patient oriented x3 Limitations: no limitations HENMT Head: Yes normal to inspection and No Temporal artery tenderness present Ears: hearing grossly normal bilaterally and TM's normal bilaterally General nose exam: Normal external nose present Face and sinus: Yes normal facial exam Mouth: Normal oral and palatal mucosa present Throat: Yes posterior oropharynx normal and Yes tonsils normal Eyes Other: IOP bilaterally 20 General: appearance normal, both eyes and all related structures Pupils: Equal, round and reactive pupils present Neck Neck: Yes normal visual inspection, Yes full ROM, Yes no lymphadenopathy and Yes no meningeal signs Chest Chest palpation & inspection: normal inspection of the chest Resp Effort & Inspection: normal respiratory effort Auscultation: clear to auscultation bilaterally Cardio Rate: regular rate Rhythm: regular rhythm Peripheral pulses: Peripheral pulses 2+ throughout GI Inspection: Yes normal to inspection Palpation (GI): Soft to palpation and nontender Auscultation: normal bowel sounds Back/Spine/Pelvis Thoracic/Lumbar Spine: thoracic and lumbar spine normal to inspection Skin General skin exam: no rashes or lesions noted Neuro General: patient oriented x3, moves all extremities, no meningeal signs, no focal motor deficits and normal sensation to monofilament Cranial nerves: Yes CN's II-XII intact bilaterally, Yes Equal, round and reactive pupils present, Yes Bilaterally intact EOM present, Yes Nystagmus not present, Yes Normal facial strength present and Yes Midline tongue present Cognition (Neuro): normal cognition Speech: No Abnormal speech present Gait exam (Neuro): Normal gait present Motor exam (neuro): 5/5 motor strength present throughout Sensory Exam: Normal double simultaneous stimulation for sensation Coordination: [id number] test normal, qrjb-[id number] test normal and tandem gait normal Extrem General: Yes normal to inspection, Yes no pedal edema and Yes no calf tenderness Course Course Course Narrative: Labs are unremarkable. CT shows no acute finding. Exam is most consistent with trigeminal neuralgia. Patient given 1 dose of Tegretol in the emergency room. I discussed this with her. She will speak to her neurologist tomorrow in follow-up. In the meantime I will give her a 7 day supply of Tegretol that she may trial at home. Reviewed worrisome signs and symptoms of when to return to the emergency room. Comfortable plan for discharge home. Medications Administered Discontinued Medications Generic Name Dose Route Start Last Admin Trade Name Sahil PRN Reason Stop Dose Admin Sodium Chloride 1,000 mls @ 999 mls/hr 11/14/24 10:59 11/14/24 11:15 Ns IV 11/14/24 11:59 999 mls/hr .Q1H1M STA Administration Ketorolac Tromethamine 15 mg 11/14/24 11:01 11/14/24 11:13 Ketorolac Tromethamine 15 Mg/Ml Vial IVPUSH 11/14/24 11:02 15 mg ONCE ONE Administration Tetracaine HCl 3 drop 11/14/24 11:07 11/14/24 11:13 Tetracaine Hcl/Pf 0.5% Oph Cecille 4 Ml Drops EYE-RIGHT 11/14/24 11:08 3 drop ONCE ONE Administration Medical Decision Making Medical Decision Making [facility] Narrative: This is a 34-year-old female with a history of anxiety depression who presents to the ER with complaints of 24 hours of right-sided facial pain described as sharp and stabbing which starts at her ear and migrates across her face to behind her eye with associated decreased sensation. This is worsened with mastication and light touch. On exam patient has a normal neurological exam with no focal deficits. She has no temporal artery tenderness on exam. Her vision is normal. Her IOPs are normal. Will obtain labs, CT. Will provide IV fluids and Toradol. Differential Diagnosis Differential Diagnoses: The differential diagnosis associated with the presentation includes Trigeminal neuralgia, temporal arteritis, acute glaucoma, complex migraines low suspicion for ICH, CVA, pseudotumor cerebri Admission/Observation Consideration of admission/observation: Escalation of care including admission/observation considered no focal findings on exam to suggest need for admission and emergent MRI. Lab Data [facility] Lab Attestation statement: I reviewed the patient's lab results. 11/14/24 11:08 11/14/24 11:08 Labs: Lab Results 11/14/24 Range/Units 11:08 WBC 8.3 (4.8-10.8) X10*3/uL RBC 3.98 L (4.20-5.50) X10*6/uL Hgb 12.8 (12.0-16.0) g/dl Hct 37.5 (37.0-47.0) % MCV 94.2 (80.0-98.0) fL MCH 32.2 (27.0-33.0) pg MCHC 34.1 (31.0-35.0) g/dl RDW 12.2 (11.0-16.0) % Plt Count 314 D (160-400) X10*3/uL MPV 10.2 (9.4-12.3) fL Immature Gran % (Auto) 0.4 (0.0-0.4) % Neut % (Auto) 61.0 (45-73) % Lymph % (Auto) 29.5 (20-40) % [place] % (Auto) 5.3 (2-11) % Eos % (Auto) 3.4 (0-4) % Baso % (Auto) 0.4 (0-2) % Lymph # (Auto) 2.4 (1.2-4.9) X10*3/uL [place] # (Auto) 0.4 (0.1-1.2) X10*3/uL Eos # (Auto) 0.3 (0.0-0.4) X10*3/uL Baso # (Auto) 0.0 (0.0-0.2) X10*3/uL Abs Immat Gran (auto) 0.03 (0.00-0.03) X10*3/uL Absolute Neuts (auto) 5.0 (2.0-8.3) x10*3/uL Absolute Nucleated RBC 0.000 (0.0-0.012) X10*3/uL Nucleated RBC % (auto) 0.0 (0.0-0.2) /100WBC ESR 10 (0-20) MM/HR Sodium 144 (135-145) mmol/L Potassium 4.1 (3.3-5.1) mmol/L Chloride 112 H (96-108) mmol/L Carbon Dioxide 27 (22-29) mmol/L Anion Gap 9 L (12-20) BUN 10 (9-16) mg/dL Creatinine 0.79 (0.5-1.4) mg/dL Estim Creat Clear Calc 92.2 Estimated GFR > 60 Random Glucose 88 (60-115) mg/dL Calcium 9.1 D (8.4-10.2) mg/dL Magnesium 2.0 (1.6-2.6) mg/dL Total Bilirubin 0.3 (0.0-1.0) mg/dL Direct Bilirubin 0.1 (0.0-0.5) mg/dL AST 16 (5-31) U/L ALT 8 (0-31) U/L Alkaline Phosphatase 98 (39-117) U/L C-Reactive Protein < 0.10 (< or = 0.50) mg/dL Total Protein 6.4 L (6.5-8.0) g/dL Albumin 3.7 (3.5-5.0) g/dL Beta HCG, Quant < 2 mIU/mL Independent Interpretation I performed an independent interpretation of an: CT Scan Interpretation: I independently reviewed the CT scan agree with the radiology report Radiology Impression Discussion of test interpretation with radiology: I have reviewed the radiologist's reading. Radiologist Impression: [place] [id number] CT Scan Report Signed Patient: Jorge Luis Canales MR#: [id number] : 1990 Acct:[id number] Age/Sex: 34 / F ADM Date: 11/14/24 Loc: .ED Attending Dr: Ordering Physician: Ludmila Zheng NP Date of Service: 11/14/24 Procedure(s): CT head/brain wo IV con Accession Number(s): [id number] cc: Ludmila Zheng NP; Esdras Smith Report Number: [id number]: Total DLP = 558.00 mGy-cm CLINICAL HISTORY: right facial numbness x [address] head without contrast Comparison: MR - MR HEAD/BRAIN WO CON - 09/11/24 14:[address]/SR - CT ANGIO HEAD NECK - 09/11/24 13:06 EST Findings: No intra-axial mass, midline shift, hydrocephalus, or acute hemorrhage. No significant atrophy-like change or white matter disease. There is no sinus or mastoid fluid. The orbits are unremarkable. There is no acute fracture. IMPRESSION: 1. No acute intracranial findings. This document has been electronically signed by: Sergey Carroll MD on 11/14/2024 13:12:47 Discharge Plan Discharge Clinical Impression: Acute facial pain Patient Disposition: Home, Self-Care Instructions: Trigeminal Neuralgia (ED), Acute Headache (ED) Additional Instructions: this may be something called trigeminal neuralgia. You may also have a complex migraine. I did give you a dose of a medication that we used to treat trigeminal neuralgia while here in the emergency room. I am giving you a prescription for this as well. Please call your neurologist tomorrow to discuss further. Please return for any worsening symptoms Prescriptions: New carbamazepine 100 mg tablet extended release 12 hr 100 mg PO BID Qty: 14 0RF No Action (DME) blood pressure test kit-large [CareTouch BP Monitor] Kit See Rx Instructions .ROUTE .MEDSUPPLY Qty: 1 0RF Rx Instructions: As directed hydroxyzine HCl 50 mg tablet 50 mg PO BID PRN (Reason: Anxiety) Print Language: Israeli
[2024-11-14 11:12] LABS: MANUAL DIFF FLAG NO
[2024-11-14] MEDS: Ketorolac Tromethamine 15 MG/ML VIAL IVPUSH (11:13)
[2024-11-14] MEDS: Tetracaine HCl/PF 0.5% Oph Sol 4 ML DROPS 3 DROP EYE-RIGHT (11:13)
[2024-11-14] MEDS: 0.9 % Sodium Chloride 1,000 ML 999 ML IV (11:15)
[2024-11-14 11:17] LABS: Basophils Percent Auto 0.4 % (0-2); Eosinophils Absolute Auto 0.3 X10*3/uL (0.0-0.4); Eosinophils Percent Auto 3.4 % (0-4); Hematocrit 37.5 % (37.0-47.0); Hemoglobin 12.8 g/dl (12.0-16.0); Imm Gran Abs Auto 0.03 X10*3/uL (0.00-0.03); Imm Gran Pct Auto 0.4 % (0.0-0.4); Lymphocytes Absolute Auto 2.4 X10*3/uL (1.2-4.9); Lymphocytes Percent Auto 29.5 % (20-40); Mean Corpuscular HGB Conc 34.1 g/dl (31.0-35.0); Mean Corpuscular Hemoglobin 32.2 pg (27.0-33.0); Mean Corpuscular Volume 94.2 fL (80.0-98.0); Mean Platelet Volume 10.2 fL (9.4-12.3); Monocytes Absolute Auto 0.4 X10*3/uL (0.1-1.2); Monocytes Percent Auto 5.3 % (2-11); Platelet Count 314 X10*3/uL (160-400); Red Blood Count 3.98 X10*6/uL (4.20-5.50); Red Cell Distribution Width 12.2 % (11.0-16.0); White Blood Count 8.3 X10*3/uL (4.8-10.8)
[2024-11-14 11:36] LABS: Alanine Aminotransferase 8 U/L (0-31); Albumin Level 3.7 g/dL (3.5-5.0); Alkaline Phosphatase 98 U/L (39-117); Anion Gap 9 (12-20); Aspartate Amino Transferase 16 U/L (5-31); Bilirubin Direct 0.1 mg/dL (0.0-0.5); Bilirubin Total 0.3 mg/dL (0.0-1.0); Blood Urea Nitrogen 10 mg/dL (9-16); C Reactive Protein < 0.10 mg/dL (< or = 0.50); Calcium 9.1 mg/dL (8.4-10.2); Carbon Dioxide 27 mmol/L (22-29); Chloride 112 mmol/L (96-108); Creatinine Clr Calc Pharmacy 92.2; Estimated Glomerular Filt Rate > 60; Glucose Random 88 mg/dL (60-115); Potassium 4.1 mmol/L (3.3-5.1); Sodium 144 mmol/L (135-145); Total Protein 6.4 g/dL (6.5-8.0)
[2024-11-14 11:38] LABS: HCG Quantitative < 2 mIU/mL
[2024-11-14 12:01] LABS: Erythrocyte Sedimentation Rate 10 MM/HR (0-20)
[2024-11-14 12:12] VITALS: BP 112/54; PULSE 74; RESP 14; TEMP 36.7; O2SAT 100
[2024-11-14 13:43] VITALS: BP 119/71; PULSE 67; RESP 18; TEMP 36.9; O2SAT 100
[2024-11-14] MEDS: carBAMazepine 100 MG TAB.CHEW PO (13:44)
== END 2024-11-14 16:06 | disposition home or self-care (01) ==
PROVIDERS: Nurse Practitioner Family; Emergency Provider Internal Medicine; PCP Internal Medicine
DX: R51.9 Headache, unspecified (principal); R20.0 Anesthesia of skin; H92.01 Otalgia, right ear; H57.11 Ocular pain, right eye
CPT/HCPCS: 36415; 70450; 80048; 80076; 83735; 84702; 85025; 85652; 86140; 96374; 99283; 99284; J1885

== ENCOUNTER → 2024-11-14 10:59 | Outpatient (BNV) | payer OTHER, SELFPAY | PROVIDERS: Emergency Provider Internal Medicine; PCP Internal Medicine; Visit Provider Nuclear Medicine | DX: R20.2 Paresthesia of skin (principal) | CPT/HCPCS: 70450 ==

== ENCOUNTER 2025-01-02 16:13 | Emergency (ER) | payer OTHER, SELFPAY ==
--- NOTE | ~2025-01-02 | XR_ITS ---
CLINICAL HISTORY: constipation 1 view abdomen Comparison: None Findings: No pneumoperitoneum or pneumatosis. Moderate fecal retention. Desiccated appearance of fecal material within the rectum and distal colon. No abnormal calcifications. No acute fractures. There are surgical clips within the left upper quadrant. IMPRESSION: There is evidence of constipation. This document has been electronically signed by: Colette Arenas MD on 01/02/2025 17:11:10
[2025-01-02 16:17] VITALS: BP 124/77; PULSE 77; RESP 16; TEMP 36.9; O2SAT 98; BMI 30.3
--- NOTE | 2025-01-02 16:20 | ED.GENADULT ---
HPI - General Adult General Chief complaint: Abdominal Pain Stated complaint: constipation hard to sit walk/ dizziness Time Seen by Provider: 01/02/25 18:18 Source: patient, RN notes reviewed and old records reviewed Mode of arrival: ambulatory Limitations: no limitations History of Present Illness ED Provider: Jose HPI narrative: Patient is a 34-year-old female with history of IBS ED presenting to the emergency department with complaint of constipation for the past 2 months. Reports bowel movements an average of every 5 days and only having small, hard bowel movements. Complaining of lower abdominal pain and discomfort with sitting. Feels rectal discomfort and protruding. Called her PCP office and they suggested that she could be prescribed suppositories. Denies any urinary symptoms. Denies fevers. Denies any rectal bleeding. Denies vomiting. Has tried stool softners and miralax without relief. complaint: constipation Onset (ago): month(s) Related Data Home Medications ?Medication ?Instructions ?Recorded ?Confirmed hydroxyzine HCl 50 mg tablet 50 mg PO BID PRN Anxiety 09/11/24 09/11/24 Previous Rx's ?Medication ?Instructions ?Recorded blood pressure test kit-large #1 ea 10/17/22 ([employer] Blood Pressure Monitor kit) carbamazepine 100 mg 100 mg PO BID #14 tabs 11/14/24 tablet,extended release,12 hr bisacodyl 10 mg rectal suppository 10 mg MT DAILY PRN constipation 01/02/25 (OneLAX Bisacodyl) #12 ea Allergies Allergy/AdvReac Type Severity Reaction Status Date / Time sumatriptan [From IMITREX] Allergy Severe THROAT Verified 01/02/25 16:22 SWELLING metoclopramide [From REGLAN] Allergy Intermediate HEART RACES Verified 01/02/25 16:22 Review of Systems Review of Systems: as per hpi Yes all other systems are reviewed and are negative Constitutional: Constitutional: Reports as per HPI PMFSH Past Medical History Medical History Back pain Morbid obesity GERD (gastroesophageal reflux disease) Migraine headache Panic attacks Elevated cholesterol Depression Anxiety Surgical History Hx of laparoscopic partial gastrectomy History of surgery on wrist Family History Family History Mother Kidney disease Father No problems noted. Brother No problems noted. Daughter No problems noted. 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 Do you presently have visiting nurse or other home services: No Alcohol intake: current Alcohol intake frequency: holidays/special occasions only Patient Tobacco Use Status: Current everyday Tobacco user Cigarettes Per Day: 4 Smoked in Last 30 Days: Yes e-Cigarette/Vaping Use: Currently Using Use of substances other than those prescribed or required for medical reasons: No Substance Use Type: Marijuana Advance Directives: No Advance Directives Information Provided: No Physical Exam ED Vital Signs: Vital Signs - 24 hr 01/02/25 16:17 01/02/25 17:36 Temperature 98.4 F 97.8 F Pulse Rate 77 59 Respiratory Rate 16 14 Blood Pressure 124/77 128/68 Pulse Oximetry 98 100 Oxygen Delivery Method Room Air Room Air BMI result Body Mass Index 30.3 Vital signs have been reviewed and appear to be correct. Blood pressure normal. Heart rate normal. Respiratory rate normal. Temperature normal. Oxygen saturation normal. Const General: cooperative, healthy appearing and no acute distress Orientation/consciousness: oriented to person, oriented to place, oriented to time and patient oriented x3 Limitations: no limitations HENMT Head: Yes normocephalic and Yes atraumatic Ears: external ears normal General nose exam: Normal external nose present Face and sinus: Yes face symmetric Mouth: oropharynx normal and moist mucous membranes Throat: Yes uvula midline Eyes Pupils: Equal, round and reactive pupils present Neck Neck: Yes normal visual inspection and Yes supple Resp Effort & Inspection: normal respiratory effort and able to speak in complete sentences Auscultation: clear to auscultation bilaterally Cardio Rate: regular rate Rhythm: regular rhythm Heart sounds: S1 normal heart sound present and S2 normal heart sound present GI Other: rectal exam chaperoned by YOBANY Sotelo tech Palpation (GI): Soft to palpation and nontender Auscultation: normoactive bowel sounds Rectal Exam - Female: visual inspection normal, normal sphincter tone, fecal impaction and No hemorrhoids General: Yes no CVA tenderness Back/Spine/Pelvis Back: no CVA tenderness Skin General skin exam: elasticity normal and turgor normal Neuro General: oriented to person, oriented to place, oriented to time, patient oriented x3, moves all extremities, no focal motor deficits and CN's II-XI intact bilaterally Cranial nerves: Yes Equal, round and reactive pupils present Cognition (Neuro): normal cognition Extrem General: Yes full ROM, Yes no pedal edema and Yes no calf tenderness Psych Mental Status: mental status grossly normal Affect: normal affect Thought process: Normal thought process present Course Course Course Narrative: 01/02/25 1620 JOE Colón This is a Rapid Medical Examination (RME) performed by Juan Ashby PA-C in triage. Full HPI, ROS, assessment and treatment plan per primary provider in the Main ED. Hx: 34 yo F hx IBS-D here for eval of constipation x1 mo. only having small hard dark BMs. not passing flatus the last 2 days. now having abd pain, rectal pressure, difficulty sitting/ moving d/t discomfort. pain is now worse w/ eating. hx of gastric sleeve, no other abd surgeries. PE/vitals: appears uncomfortable Plan: labs, KUB Reevaluation(s) Reevaluation #1: 2015 Saida Suresh PA-C ----> Patient had a bowel movement successfully. Patient cleared for discharge. Medical Decision Making Medical Decision Making [facility] Narrative: Patient is a 34-year-old female with history of IBS ED presenting to the emergency department with complaint of constipation for the past 2 months. On exam patient is awake, A+Ox3, VS WNL, afebrile, normal neurological exam without focal deficits, physical exam findings as above. Given reported symptoms and physical exam findings, initial differential includes but is not limited to constipation, hemorrhoids, rectal prolapse. Less likely obstruction. Labs unremarkable. X-ray abdomen notable for constipation without obstruction. My interpretation is in agreement with the radiologist's interpretation. Palpable stool on rectal exam, no rectal prolapse or hemorrhoids. Soapsuds enema ordered. Patient signed out to JOE Cintron pending discharge after administration of enema. Differential Diagnosis Differential Diagnoses: The differential diagnosis associated with the presentation includes as per [facility] Admission/Observation Consideration of admission/observation: Escalation of care including admission/observation considered Patient would have been admitted to the hospital had their work up had any findings where hospital admission was appropriate and their clinical presentation warranted hospital admission. Lab Data [facility] Lab Attestation statement: I reviewed the patient's lab results. as per [facility] 01/02/25 16:37 01/02/25 16:37 Labs: Lab Results 01/02/25 Range/Units 16:37 WBC 11.7 H (4.8-10.8) X10*3/uL RBC 4.25 (4.20-5.50) X10*6/uL Hgb 13.6 (12.0-16.0) g/dl Hct 39.9 (37.0-47.0) % MCV 93.9 (80.0-98.0) fL MCH 32.0 (27.0-33.0) pg MCHC 34.1 (31.0-35.0) g/dl RDW 12.9 (11.0-16.0) % Plt Count 373 (160-400) X10*3/uL MPV 9.4 (9.4-12.3) fL Immature Gran % (Auto) 0.3 (0.0-0.4) % Neut % (Auto) 61.2 (45-73) % Lymph % (Auto) 27.8 (20-40) % [place] % (Auto) 6.7 (2-11) % Eos % (Auto) 3.4 (0-4) % Baso % (Auto) 0.6 (0-2) % Lymph # (Auto) 3.2 (1.2-4.9) X10*3/uL [place] # (Auto) 0.8 (0.1-1.2) X10*3/uL Eos # (Auto) 0.4 (0.0-0.4) X10*3/uL Baso # (Auto) 0.1 (0.0-0.2) X10*3/uL Abs Immat Gran (auto) 0.03 (0.00-0.03) X10*3/uL Absolute Neuts (auto) 7.1 (2.0-8.3) x10*3/uL Absolute Nucleated RBC 0.000 (0.0-0.012) X10*3/uL Nucleated RBC % (auto) 0.0 (0.0-0.2) /100WBC Sodium 141 (135-145) mmol/L Potassium 3.9 (3.3-5.1) mmol/L Chloride 108 (96-108) mmol/L Carbon Dioxide 23 (22-29) mmol/L Anion Gap 14 (12-20) BUN 16 (9-16) mg/dL Creatinine 0.77 (0.5-1.4) mg/dL Estim Creat Clear Calc 95.8 Estimated GFR > 60 Random Glucose 96 (60-115) mg/dL Calcium 9.2 (8.4-10.2) mg/dL Magnesium 2.1 (1.6-2.6) mg/dL Total Bilirubin 0.3 (0.0-1.0) mg/dL AST 24 (5-31) U/L ALT 19 (0-31) U/L Alkaline Phosphatase 102 (39-117) U/L Total Protein 7.2 (6.5-8.0) g/dL Albumin 4.3 (3.5-5.0) g/dL Lipase 17 (8-78) U/L Beta HCG, Quant < 2 mIU/mL Independent Interpretation I performed an independent interpretation of an: Plain X-Ray Interpretation: KUB notable for constipation without evidence of obstruction Radiology Impression Discussion of test interpretation with radiology: I have reviewed the radiologist's reading. Radiologist Impression: Findings: No pneumoperitoneum or pneumatosis. Moderate fecal retention. Desiccated appearance of fecal material within the rectum and distal colon. No abnormal calcifications. No acute fractures. There are surgical clips within the left upper quadrant. IMPRESSION: There is evidence of constipation. External Record Review External record reviewed: Inpatient record, Office record and Outpatient record Discharge Plan Discharge Clinical Impression: Constipation Patient Disposition: Home, Self-Care Instructions: Constipation (DC) Additional Instructions: You were evaluated in the emergency department today for constipation. Your evaluation was reassuring, your x-ray did not show evidence of an obstruction. You are given an enema in the emergency department today. You are also being prescribed suppositories for home. We recommend that you follow-up with your primary care provider. Return to the emergency department if you develop worsening pain, blood in your stool or dark, tarry stool, fever, or any other new or concerning symptoms. Prescriptions: New bisacodyl [OneLAX Bisacodyl] 10 mg suppository 10 mg MT DAILY PRN (Reason: constipation) Qty: 12 0RF No Action (DME) blood pressure test kit-large [SunshineTouch BP Monitor] Kit See Rx Instructions .ROUTE .MEDSUPPLY Qty: 1 0RF Rx Instructions: As directed hydroxyzine HCl 50 mg tablet 50 mg PO BID PRN (Reason: Anxiety) carbamazepine 100 mg tablet extended release 12 hr 100 mg PO BID Qty: 14 0RF Print Language: Palestinian
[2025-01-02 16:42] LABS: MANUAL DIFF FLAG NO
[2025-01-02 16:43] LABS: Basophils Absolute Auto 0.1 X10*3/uL (0.0-0.2); Basophils Percent Auto 0.6 % (0-2); Eosinophils Absolute Auto 0.4 X10*3/uL (0.0-0.4); Eosinophils Percent Auto 3.4 % (0-4); Hematocrit 39.9 % (37.0-47.0); Hemoglobin 13.6 g/dl (12.0-16.0); Imm Gran Abs Auto 0.03 X10*3/uL (0.00-0.03); Imm Gran Pct Auto 0.3 % (0.0-0.4); Lymphocytes Absolute Auto 3.2 X10*3/uL (1.2-4.9); Lymphocytes Percent Auto 27.8 % (20-40); Mean Corpuscular HGB Conc 34.1 g/dl (31.0-35.0); Mean Corpuscular Volume 93.9 fL (80.0-98.0); Mean Platelet Volume 9.4 fL (9.4-12.3); Monocytes Absolute Auto 0.8 X10*3/uL (0.1-1.2); Monocytes Percent Auto 6.7 % (2-11); Neutrophils Absolute Auto 7.1 x10*3/uL (2.0-8.3); Neutrophils Percent Auto 61.2 % (45-73); Platelet Count 373 X10*3/uL (160-400); Red Blood Count 4.25 X10*6/uL (4.20-5.50); Red Cell Distribution Width 12.9 % (11.0-16.0); White Blood Count 11.7 X10*3/uL (4.8-10.8)
[2025-01-02 17:09] LABS: Alanine Aminotransferase 19 U/L (0-31); Albumin Level 4.3 g/dL (3.5-5.0); Anion Gap 14 (12-20); Aspartate Amino Transferase 24 U/L (5-31); Bilirubin Total 0.3 mg/dL (0.0-1.0); Blood Urea Nitrogen 16 mg/dL (9-16); Calcium 9.2 mg/dL (8.4-10.2); Carbon Dioxide 23 mmol/L (22-29); Chloride 108 mmol/L (96-108); Creatinine Clr Calc Pharmacy 95.8; Estimated Glomerular Filt Rate > 60; Glucose Random 96 mg/dL (60-115); Lipase 17 U/L (8-78); Magnesium 2.1 mg/dL (1.6-2.6); Potassium 3.9 mmol/L (3.3-5.1); Sodium 141 mmol/L (135-145); Total Protein 7.2 g/dL (6.5-8.0)
[2025-01-02 17:13] LABS: HCG Quantitative < 2 mIU/mL
[2025-01-02 17:36] VITALS: BP 128/68; PULSE 59; RESP 14; TEMP 36.6; O2SAT 100
[2025-01-02 18:06] LABS: Alkaline Phosphatase 102 U/L (39-117)
[2025-01-02 20:29] VITALS: BP 122/71; PULSE 63; RESP 16; TEMP 36.7; O2SAT 98
== END 2025-01-02 20:30 | disposition home or self-care (01) ==
PROVIDERS: Physician Assistant Medical; Emergency Provider Emergency Medicine Emergency Medical Services; PCP Internal Medicine
DX: K59.00 Constipation, unspecified (principal)
CPT/HCPCS: 36415; 74018; 80053; 83690; 83735; 84702; 85025; 99284

== ENCOUNTER → 2025-01-02 16:21 | Outpatient (BNV) | payer OTHER, SELFPAY | PROVIDERS: PCP Internal Medicine; Visit Provider Radiology Diagnostic Radiology | DX: K59.00 Constipation, unspecified (principal) | CPT/HCPCS: 74018 ==